=== PATIENT | male | born 1965 | race Two or more races ===

== ENCOUNTER 2023-03-04 04:43 | Emergency (ER) | payer OTHER, SELFPAY ==
--- NOTE | 2023-03-04 | ECG_ITS ---
Test Reason : CP Blood Pressure : / mmHG Vent. Rate : 093 BPM Atrial Rate : 093 BPM P-R Int : 166 ms QRS Dur : 080 ms QT Int : 336 ms P-R-T Axes : 026 013 055 degrees QTc Int : 417 ms Normal sinus rhythm Normal ECG No previous ECGs available Referred By: Generic ED Physician Electronically Signed By:JUANIS PUENTES MD
[2023-03-04 04:53] VITALS: BP 159/89; PULSE 92; RESP 20; TEMP 36.9; O2SAT 98; BMI 28.3
[2023-03-04 04:58] VITALS: BP 132/85; PULSE 92; RESP 12; O2SAT 97
[2023-03-04 05:10] LABS: MANUAL DIFF FLAG NO
[2023-03-04 05:11] LABS: Eosinophils Absolute Auto 0.2 X10*3/uL (0.0-0.4); Eosinophils Percent Auto 5.5 % (0-4); Hematocrit 44.1 % (42.0-52.0); Hemoglobin 15.2 g/dl (14.0-18.0); Imm Gran Abs Auto 0.01 X10*3/uL (0.00-0.03); Imm Gran Pct Auto 0.3 % (0.0-0.4); Lymphocytes Absolute Auto 1.5 X10*3/uL (1.2-4.9); Lymphocytes Percent Auto 37.8 % (20-40); Mean Corpuscular HGB Conc 34.5 g/dl (31.0-36.0); Mean Corpuscular Hemoglobin 28.2 pg (27.0-33.0); Mean Corpuscular Volume 81.8 fL (80.0-98.0); Mean Platelet Volume 9.4 fL (9.4-12.4); Monocytes Absolute Auto 0.4 X10*3/uL (0.1-1.2); Neutrophils Absolute Auto 1.8 x10*3/uL (2.0-8.3); Neutrophils Percent Auto 44.4 % (45-73); Platelet Count 190 X10*3/uL (160-400); Red Blood Count 5.39 X10*6/uL (4.60-5.80); Red Cell Distribution Width 12.4 % (11.0-16.0)
[2023-03-04 05:24] LABS: Alanine Aminotransferase 15 U/L (0-40); Albumin Level 3.9 g/dL (3.5-5.0); Alkaline Phosphatase 76 U/L (39-117); Anion Gap 16 (12-20); Aspartate Amino Transferase 16 U/L (5-37); Bilirubin Total 0.4 mg/dL (0.0-1.0); Blood Urea Nitrogen 10 mg/dL (9-16); Calcium 9.2 mg/dL (8.4-10.2); Carbon Dioxide 22 mmol/L (22-29); Chloride 105 mmol/L (96-108); Creatinine Clr Calc Pharmacy 104.6; Estimated Glomerular Filt Rate > 60; Glucose Random 195 mg/dL (60-115); Sodium 139 mmol/L (135-145); Total Protein 6.6 g/dL (6.5-8.0)
[2023-03-04 05:35] LABS: Troponin-I High Sensitivity < 2.7 ng/L (<3.5-35.0)
--- OUTSIDE RECORDS SUMMARY | 2023-03-04 05:37 | XMS_ITS | Continuity of Care Document ---
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 Role Phone Ruddy Salgado Primary Care Physician Encounter [facility] [place] Date(s): 09/25/19 - 10/02/19 [facility] [address] [place] [address]- [facility] Attending Physician: David Bell MD Referring Physician: Ruddy Salgado Allergies, Adverse Reactions, Alerts Substance Reaction Severity Status NKA Active Immunizations Given and Recorded Vaccine Date Status Refusal Reason influenza virus vaccine, inactivated 02/25/15 Aly rded influenza virus vaccine, inactivated 03/23/14 Give n influenza virus vaccine, inactivated 03/15/12 Give n influenza virus vaccine, inactivated 1 03/15/06 Gi filemon tetanus-diphtheria toxoids (Td) 12/28/12 Given pneumococcal 23-valent vaccine 03/15/12 Given 1Admin Note: med given by ravinder funk rn..vis..11/06/05 Medications Alcohol Pads See Instructions, # 200 each, Refills 5, Tot. Refills 5, Maintenance, use as directed for Type Diabetes Mellitus use as directed for DM 250.02 TID, 10/12/14 9:09:41, Compound Start Date: 10/12/14 Stop Date: 04/10/15 Status: Ordered She[employer]on [employer] Contour Test Strips See Instructions, # 100 each, Refills 11, Tot. Refills 11, Maintenance, TID before meals using withBS monitor., 11/07/14 17:54:38, DM 250.02, Compound Start Date: 11/07/14 Status: Ordered Contour Next EZ Test Strips See Instructions, # 100 each, Refills 5, Tot. Refills 5, Maintenance, use as directed for Type Diabetes Mellitus use as directed for DM 250.02 TID, 10/12/14 9:09:15, Compound Start Date: 10/12/14 Stop Date: 04/10/15 Status: Ordered Cpap suplies: mask, tubing, filters, head gear and water chamber Cpap suplies: mask, tubing, filters, head gear and water chamber, See Instructions, # 1 each, Refills 12, Tot. Refills 12, Maintenance, Use with c-pap machine, 01/10/15 15:35:31, Compound Start Date: 01/10/15 Status: Ordered Eucerin Unscented topical lotion 1 application, Topically, 2 times a day, PRN for dry skin, # 252 mL, 1 Refills, Maintenance, 07/13/14 16:22:35, Lotion, 1 application Topically 2 times a day,PRN:for dry skin Start Date: 07/13/14 Status: Ordered Flonase 50 mcg/inh nasal spray 1 sprays, Nares, Both, 2 times a day, # 1 each, 0 Refills, Maintenance, 12/21/14 10:53:02, [place], 1sprays Nares, Both 2 times a day,x30 days Start Date: 12/21/14 Stop Date: 01/20/15 Status: Ordered folic acid 1 mg oral tablet 1 tablet = 1 mg, By Mouth, Daily, # 30 tablet, 3 Refills, Maintenance, 03/01/15 15:03:00, Tablet, 1tablet By Mouth Daily Start Date: 03/01/15 Status: Ordered Humalog 100 u/ml subcutaneous injection See Instructions, via external pump,on total daily insulin dose 1unit per hour continuosly;up to total 100unit/day with continuos and bolus/ protocol pump., # 20 mL, 11 Refills, Maintenance, 03/01/1515:03:00, Subcutaneous Infusion Diagnosis ICD 10... Start Date: 03/01/15 Status: Ordered Librium Capsule See Instructions, Tapering dose. 75mg TIDx2 days, 50mg TIDx2 days, 50mg bidx2 days, 25mg bid x2 days, 25mg daily x2 days., 0 Refills, Maintenance, 06/05/14 6:40:46 Start Date: 06/05/14 Status: Ordered lithium 300 mg oral tablet See Instructions, 2 caps AM, 3 caps PM, 0 Refills, Maintenance, 03/14/12 10:55:29, Tablet Start Date: 03/14/12 Status: Ordered metformin 1000 mg oral tablet 1 tablet = 1,000 mg, By Mouth, 2 times a day, for 30 days, # 60 tablet, 11 Refills, Hard Stop 02/12/16 13:23:29, 02/17/15 13:23:29, Tablet, 1 tablet By Mouth 2 times a day,x30 days Start Date: 02/17/15 Stop Date: 02/12/16 Status: Ordered montelukast 10 mg oral tablet 1 tablet = 10 mg, By Mouth, Daily in PM, # 30 tablet, 5 Refills, Maintenance, 04/05/15 9:34:00, Tablet, 1 tablet By Mouth Daily in PM Start Date: 04/05/15 Status: Ordered naproxen 500 mg oral tablet 1 tablet = 500 mg, By Mouth, 2 times a day, PRN as needed for pain, # 30 tablet, 2 Refills, Maintenance, 04/16/15 11:01:36, Tablet, 1 tablet By Mouth 2 times a day,PRN:as needed for pain Start Date: 04/16/15 Status: Ordered omeprazole 20 mg oral enteric coated capsule 1 capsule = 20 mg, By Mouth, Daily, can switch to other presentation as generic (tablets), # 30 capsule, 5 Refills, Maintenance, 06/13/15 22:33:00, EC Capsule, 1 capsule By Mouth Daily,Instr:can switch to other presentation as generic (tablets) Start Date: 06/13/15 Status: Ordered oxybutynin 5 mg oral tablet 1 tablet = 5 mg, By Mouth, Daily at bedtime, PRN for urinary discomfort, # 30 tablet, 3 Refills, Maintenance, 04/05/15 9:34:00, Tablet, 1 tablet By Mouth Daily at bedtime,PRN:for urinary discomfort Start Date: 04/05/15 Status: Ordered Pen [place], 31 G x 8 mm BD Ultra Fine III See Instructions, # 100 each, Refills 0, Tot. Refills 0, Maintenance, use as directed for Type 2 Diabetes Mellitus, 06/13/14 16:30:21, Compound Start Date: 06/13/14 Stop Date: 07/13/14 Status: Ordered Pen [place], 31 G x 8 mm BD Ultra Fine III See Instructions, # 100 each, Refills 5, Tot. Refills 5, Maintenance, use as directed for DM 250.02TID, 10/12/14 9:10:01, Compound Start Date: 10/12/14 Stop Date: 04/10/15 Status: Ordered sumatriptan 50 mg oral tablet 1 tablet = 50 mg, By Mouth, Daily, PRN for migraine headache, may repeat dose after 2 hours up to amaximum of 2, # 12 tablet, 1 Refills, Maintenance, 04/16/15 11:07:02, Tablet, 1 tablet By Mouth Daily,PRN:for migraine headache,Instr:may repeat dose a... Start Date: 04/16/15 Status: Ordered Problem List Condition Effective Dates Status Health Status Inform ant Allergic rhinitis(Confirmed) Active Anxiety depression(Confirmed) Active Chronic bipolar disorder(Confirmed) Active Diabetes mellitus type 2(Confirmed) Active Gastro-esophageal reflux dis ease with esophagitis(Confirmed) Active Headache disorder(Confirmed) Active Hepatitis C(Confirmed) 02/06/02 Active Hypercholesterolemia(Confirmed) Active Obstructive sleep apnea syndrome(Confirmed) 2003 Active Opioid abuse(Confirmed)(Stable) 1 Active Truncal obesity(Confirmed) Active 1on methadone clinic Social History Social History Type Response Smoking Status Never smoker; Tobacc o user in household: No entered on: 07/13/14 Sex
--- OUTSIDE RECORDS SUMMARY | 2023-03-04 05:38 | XMS_ITS | Continuity of Care Document ---
Author Name Unknown Organization [facility] Address [address] [place] [address]- Care Team Providers Care Spooler Name Role Phone Mando Zayas DO Primary Care Physician Encounter [facility] Date(s): 11/21/20 - 12/21/[address] [address]- Allergies, Adverse Reactions, Alerts Substance Reaction Severity Status NKA Active Immunizations Given and Recorded Vaccine Date Status Refusal Reason zoster vaccine, inactivated 11/07/20 Recorded SARS-CoV-2 (COVID-19) mRNA BNT-162b2 vac 10/10/20 Recorded SARS-CoV-2 (COVID-19) mRNA BNT-162b2 vac 09/19/20 Recorded influenza virus vaccine, inactivated 02/12/20 Aly rded influenza virus vaccine, inactivated 03/08/17 Aly rded influenza virus vaccine, inactivated 03/23/16 Aly rded influenza virus vaccine, inactivated 02/25/15 Aly rded influenza virus vaccine, inactivated 03/23/14 Give n influenza virus vaccine, inactivated 03/15/12 Give n influenza virus vaccine, inactivated 1 03/15/06 Gi filemon hepatitis B adult vaccine 09/03/15 Recorded hepatitis B adult vaccine 08/03/15 Recorded pneumococcal 23-valent vaccine 08/03/15 Recorded pneumococcal 23-valent vaccine 03/15/12 Given Measles/Mumps/Rubella Virus Vaccine 08/03/15 Recor ded Hepatitis A Adult Vaccine 08/03/15 Recorded tetanus-diphtheria toxoids (Td) 12/28/12 Given 1Admin Note: med given by ravinder funk rn..vis..11/06/05 Medications Alcohol Pads See Instructions, # 200 each, Refills 5, Tot. Refills 5, Maintenance, use as directed for Type 2 Diabetes Mellitus, take your sugars at least once a day, 10/14/20 16:57:00 EDT, Supply, 175.26, cm, 10/14/20 14:50:00 EDT, Height Start Date: 10/14/20 Stop Date: 04/12/21 Status: Ordered atorvastatin 80 mg oral tablet 1 tablet = 80 mg, By Mouth, Daily, # 90 tablet, 3 Refills, Maintenance, 10/14/20 16:00:00 EDT, Tablet, [id number], 175.26, cm, 10/14/20 14:50:00 EDT, Height Start Date: 10/14/20 Status: Ordered cetirizine 5 mg oral tablet = 5 mg, By Mouth, Daily, # 30 tablet, 2 Refills, Maintenance, 03/15/20 17:00:00 EST, Tablet, [id number], 175.26, cm, 03/15/20 13:14:00 EST, Height Start Date: 03/15/20 Status: Ordered cloNIDine 0.1 mg oral tablet 0.1 mg, 1, tablet, By Mouth, 2 times a day, # 60 tablet, Refills 0, Maintenance, 03/15/20 13:32:00 EST Start Date: 03/15/20 Status: Ordered Cpap suplies: mask, tubing, filters, head gear and water chamber Cpap suplies: mask, tubing, filters, head gear and water chamber, See Instructions, # 1 each, Refills 12, Tot. Refills 12, Maintenance, Use with c-pap machine, 01/10/15 15:35:31, Compound Start Date: 01/10/15 Status: Ordered diclofenac 1% topical gel 1 application, Topically, 4 times a day, # 100 Gm, 0 Refills, Maintenance, 10/15/20 17:12:00 EDT, Gel, [id number], 175.26, cm, 10/14/20 14:50:00 EDT, Height Start Date: 10/15/20 Status: Ordered divalproex sodium 500 mg oral enteric coated tablet 1 tablet = 500 mg, By Mouth, 2 times a day, # 60 tablet, 2 Refills, Maintenance, 06/07/20 10:01:00 EST, Tablet, [id number], Partial fill upon patient request if the prescription is for a schedule II opioid drug., 175.26, cm, 03/15/20 13:14:00... Start Date: 06/07/20 Stop Date: 09/05/20 Status: Ordered dulaglutide 1.5 mg/0.5 mL subcutaneous solution 0.5 mL = 1.5 mg, Subcutaneous Injection, Every week, rotate injection sites, # 2 mL, 3 Refills, Maintenance, 11/19/20 17:04:00 EDT, Solution, [facility]/pharmacy #[id number], Partial fill upon patient request if the prescription is for a schedule II opioid drug.,... Start Date: 11/19/20 Status: Ordered famotidine 20 mg oral tablet 20 mg, 1, tablet, By Mouth, 2 times a day, # 180 tablet, Refills 0, Tot. Refills 0, Maintenance, 11/14/20 9:55:00 EDT, Route to Pharmacy Electronically, [facility]/pharmacy #[id number], Partial fill upon patient request if the prescription is for a schedule II opi... Start Date: 11/14/20 Status: Ordered Flonase 50 mcg/inh nasal spray 1 sprays, Nares, Both, 2 times a day, # 1 each, 2 Refills, Maintenance, 03/15/20 17:00:00 EST, [place], [facility]/pharmacy #[id number], 1 sprays Nares, Both 2 times a day,x30 days, 175.26, cm, 03/15/20 13:14:00 EST, Height Start Date: 03/15/20 Stop Date: 06/13/20 Status: Ordered Freestyle Lite Lancets See Instructions, # 300 each, Refills 2, Tot. Refills 2, Maintenance, use as directed for Type 2 Diabetes Mellitus, take your sugars at least once a day, 10/14/20 16:58:00 EDT, Supply, 175.26, cm, 10/14/20 14:50:00 EDT, Height Start Date: 10/14/20 Stop Date: 07/11/21 Status: Ordered Freestyle Lite Monitor See Instructions, # 1 each, Refills 0, Tot. Refills 0, Maintenance, use as directed for Type 2 Diabetes Mellitus, 03/15/20 17:39:00 EST, Supply, 175.26, cm, 03/15/20 13:14:00 EST, Height Start Date: 03/15/20 Stop Date: 04/14/20 Status: Ordered Freestyle Lite Test Strips See Instructions, # 200 each, Refills 2, Tot. Refills 2, Maintenance, use as directed for Type 2 Diabetes Mellitus, take your sugars at least once a day, 10/14/20 16:57:00 EDT, Supply, 175.26, cm, 10/14/20 14:50:00 EDT, Height Start Date: 10/14/20 Stop Date: 01/12/21 Status: Ordered gabapentin 100 mg oral capsule 100 mg, 1, capsule, By Mouth, Daily at bedtime, # 90 capsule, Refills 1, Tot. Refills 1, Maintenance, 11/14/20 9:49:00 EDT, Route to Pharmacy Electronically, [facility]/pharmacy #[id number], Partial fill upon patient request if the prescription is for a schedule I... Start Date: 11/14/20 Status: Ordered lamotrigine 100 mg oral tablet, disintegrating 1 tablet = 100 mg, By Mouth, Daily, # 60 tablet, 0 Refills, Maintenance, 03/15/20 13:31:00 EST, DISTablet Start Date: 03/15/20 Status: Ordered lidocaine 5% topical ointment 1 application, Topically, 3 times a day, wash hands thoroughly after application, # 35 Gm, 0 Refills, Maintenance, 09/30/20 16:55:00 EDT, Ointment, [facility]/pharmacy #[id number], Partial fill upon patient request if the prescription is for a schedule II opioid d... Start Date: 09/30/20 Status: Ordered metFORMIN 1000 mg oral tablet, extended release 1 tablet = 1,000 mg, By Mouth, Daily, with evening meal, # 90 tablet, 3 Refills, Maintenance, 10/14/20 16:00:00 EDT, ER Tablet, [facility]/pharmacy #[id number], Partial fill upon patient request if the prescription is for a schedule II opioid drug., 175.26, cm, 06... Start Date: 10/14/20 Status: Ordered mirtazapine 7.5 mg oral tablet 1 tablet = 7.5 mg, By Mouth, Daily at bedtime, # 60 tablet, 0 Refills, Maintenance, 03/15/20 13:33:00 EST, Tablet Start Date: 03/15/20 Status: Ordered naratriptan 2.5 mg oral tablet 1 tablet = 2.5 mg, By Mouth, Daily, PRN for migraine headache, may repeat dose once in 4 hours, usefor severe headaches at earliest symptom onset, # 9 tablet, 1 Refills, Maintenance, 08/13/20 19:02:00 EDT, Tablet, [facility]/pharmacy #[id number], Partial fill upo... Start Date: 08/13/20 Status: Ordered naratriptan 2.5 mg oral tablet See Instructions, 1 TABLET BY MOUTH DAILY,PRN:FOR MIGRAINE HEADACHE,INSTR:MAY REPEAT DOSE ONCE IN 4HOURS, USE FOR SEVERE HEADACHES AT EARLIEST SYMPTOM ONSET, # 9 tablet, 1 Refills, Acute, [id number], 175.26, cm, 11/14/20 9:30:00 EDT, Height Start Date: 11/14/20 Status: Ordered sildenafil 50 mg oral tablet 1 tablet = 50 mg, By Mouth, Daily, PRN as needed for erectile dysfunction, 1 hour before sexual activity, # 5 tablet, 0 Refills, Maintenance, 10/14/20 16:38:00 EDT, Tablet, [id number], Partial fill upon patient request if the prescriptio... Start Date: 10/14/20 Status: Ordered Tylenol Extra Strength 500 mg oral tablet 2 tablet = 1,000 mg, By Mouth, Every 4 hours, PRN for pain, not to exceed 3000 mg/day okay to take prior to PT, # 120 tablet, 0 Refills, Maintenance, 09/30/20 16:09:00 EDT, Tablet, [facility]/pharmacy #[id number], 175.26, cm, 03/15/20 13:14:00 EST, Height Start Date: 09/30/20 Status: Ordered Problem List Condition Effective Dates [...]
--- OUTSIDE RECORDS SUMMARY | 2023-03-04 05:38 | XMS_ITS | Continuity of Care Document ---
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 Role Phone Mando Zayas DO Primary Care Physician Encounter [facility] [place] ACCT R [id number] Date(s): 06/25/21 - 07/25/[address] [address]- Attending Physician: Admsusanna, Krishna Admitting Physician: Admtr, Ar8 Referring Physician: Admtr, Ar8 Allergies, Adverse Reactions, Alerts No Known Allergies Immunizations Given and Recorded Vaccine Date Status [...] 3 Refills, Maintenance, 10/14/20 16:00:00 EDT, Tablet, [facility]/pharmacy #[id number], 175.26, cm, 10/14/20 14:50:00 EDT, Height Start Date: 10/14/20 Status: Ordered cetirizine 5 mg oral tablet = 5 mg, By Mouth, Daily, # 30 tablet, 2 Refills, Maintenance, 03/15/20 17:00:00 EST, Tablet, [facility]/pharmacy #[id number], 175.26, cm, 03/15/20 13:14:00 EST, Height [...] 0 Refills, Maintenance, 10/15/20 17:12:00 EDT, Gel, [facility]/pharmacy #[id number], 175.26, cm, 10/14/20 14:50:00 EDT, Height Start Date: 10/15/20 Status: Ordered divalproex sodium 500 mg oral enteric coated tablet 1 tablet = 500 mg, By Mouth, 2 times a day, # 60 tablet, 2 Refills, Maintenance, 06/07/20 10:01:00 EST, Tablet, [facility]/pharmacy #[id number], Partial fill upon patient request if the prescription is for a schedule II opioid drug., 175.26, cm, 03/15/20 13:14:00... Start Date: 06/07/20 Stop Date: 09/05/20 Status: Ordered dulaglutide 1.5 mg/0.5 mL subcutaneous solution 0.5 mL = 1.5 mg, Subcutaneous Injection, Every week, rotate injection sites, # 2 mL, 3 Refills, Maintenance, 11/19/20 17:04:00 EDT, Solution, [facility]/pharmacy #[id number], Partial fill upon patient request if the prescription is for a schedule II opioid drug.,... Start Date: 11/19/20 Status: Ordered famotidine 20 mg oral tablet 20 mg, 1, tablet, By Mouth, 2 times a day, # 180 tablet, Refills 0, Tot. Refills 0, Maintenance, 02/04/21 10:59:00 EDT, Route to Pharmacy Electronically, [facility]/pharmacy #[id number], Partial fill upon patientrequest if the prescription is for a schedule II op... Start Date: 02/04/21 Status: Ordered Flonase 50 mcg/inh nasal spray 1 sprays, Nares, Both, 2 times a day, # 1 each, 2 Refills, Maintenance, 03/15/20 17:00:00 EST, [place], [facility]/pharmacy #[id number], 1 sprays Nares, Both 2 times [...] 11/14/20 9:49:00 EDT, Route to Pharmacy Electronically, [facility]/pharmacy #[id number], Partial fill upon patient request if [...] 0 Refills, Maintenance, 09/30/20 16:55:00 EDT, Ointment, [facility]/pharmacy #[id number], Partial fill upon patient request if the prescription is for a schedule II opioid d... Start Date: 09/30/20 Status: Ordered metFORMIN 1000 mg oral tablet, extended release 1 tablet = 1,000 mg, By Mouth, Daily, with evening meal, # 90 tablet, 3 Refills, Maintenance, 10/14/20 16:00:00 EDT, ER Tablet, [id number], Partial fill upon patient [...] 1 Refills, Maintenance, 08/13/20 19:02:00 EDT, Tablet, [facility]/pharmacy #[id number], Partial fill upo... Start Date: 08/13/20 Status: Ordered naratriptan 2.5 mg oral tablet See Instructions, 1 TABLET BY MOUTH DAILY,PRN:FOR MIGRAINE HEADACHE,INSTR:MAY REPEAT DOSE ONCE IN 4HOURS, USE FOR SEVERE HEADACHES AT EARLIEST SYMPTOM ONSET, # 9 tablet, 1 Refills, Acute, [id number], 175.26, cm, 11/14/20 9:30:00 EDT, Height Start [...] 0 Refills, Maintenance, 09/30/20 16:09:00 EDT, Tablet, [facility]/pharmacy #[id number], 175.26, cm, 03/15/20 13:14:00 EST, Height [...]
--- OUTSIDE RECORDS SUMMARY | 2023-03-04 05:38 | XMS_ITS | Continuity of Care Document ---
Author Name Unknown Organization [facility] Address [address] [place] [address]- Care Team Providers Care Story Editor Name Role Phone Mando Zayas DO Primary Care Physician [place] [facility] [place](s): 01/14/21 - 02/13/[address] [address]- Attending Physician: [id number] Admitting Physician: Admtr, Ar8 Referring Physician: Admtr, Ar8 Allergies, Adverse Reactions, Alerts Substance Reaction Severity [...] 3 Refills, Maintenance, 10/14/20 16:00:00 EDT, Tablet, [facility]/pharmacy #[id number], 175.26, cm, 10/14/20 14:50:00 EDT, Height Start Date: 10/14/20 Status: Ordered cetirizine 5 mg oral tablet = 5 mg, By Mouth, Daily, # 30 tablet, 2 Refills, Maintenance, 03/15/20 17:00:00 EST, Tablet, [facility]/pharmacy #[id number], 175.26, cm, 03/15/20 13:14:00 EST, Height [...] 2 Refills, Maintenance, 06/07/20 10:01:00 EST, Tablet, [facility]/pharmacy #[id number], Partial fill upon patient request if the prescription is for a schedule II opioid drug., 175.26, cm, 03/15/20 13:14:00... Start Date: 06/07/20 Stop Date: 09/05/20 Status: Ordered dulaglutide 1.5 mg/0.5 mL subcutaneous solution 0.5 mL = 1.5 mg, Subcutaneous Injection, Every week, rotate injection sites, # 2 mL, 3 Refills, Maintenance, 11/19/20 17:04:00 EDT, Solution, [facility]/pharmacy #[id number], Partial fill upon patient request if the prescription is for a schedule II opioid drug.,... Start Date: 11/19/20 Status: Ordered famotidine 20 mg oral tablet 20 mg, 1, tablet, By Mouth, 2 times a day, # 180 tablet, Refills 0, Tot. Refills 0, Maintenance, 02/04/21 10:59:00 EDT, Route to Pharmacy Electronically, [facility]/pharmacy #[id number], Partial fill upon patientrequest if the prescription is for a schedule II op... Start Date: 02/04/21 Status: Ordered Flonase 50 mcg/inh nasal spray 1 sprays, Nares, Both, 2 times a day, # 1 each, 2 Refills, Maintenance, 03/15/20 17:00:00 EST, [place], [facility]/pharmacy #[id number], 1 sprays Nares, Both 2 times [...] 11/14/20 9:49:00 EDT, Route to Pharmacy Electronically, [facility]/pharmacy #[id number], Partial fill upon patient request if [...] 0 Refills, Maintenance, 09/30/20 16:55:00 EDT, Ointment, [facility]/pharmacy #[id number], Partial fill upon patient request if the prescription is for a schedule II opioid d... Start Date: 09/30/20 Status: Ordered metFORMIN 1000 mg oral tablet, extended release 1 tablet = 1,000 mg, By Mouth, Daily, with evening meal, # 90 tablet, 3 Refills, Maintenance, 10/14/20 16:00:00 EDT, ER Tablet, [facility]/pharmacy [facility][id number], Partial fill upon patient request if [...] 1 Refills, Maintenance, 08/13/20 19:02:00 EDT, Tablet, [facility]/pharmacy #[id number], Partial fill upo... Start Date: 08/13/20 Status: Ordered naratriptan 2.5 mg oral tablet See Instructions, 1 TABLET BY MOUTH DAILY,PRN:FOR MIGRAINE HEADACHE,INSTR:MAY REPEAT DOSE ONCE IN 4HOURS, USE FOR SEVERE HEADACHES AT EARLIEST SYMPTOM ONSET, # 9 tablet, 1 Refills, Acute, [id number], 175.26, cm, 11/14/20 9:30:00 EDT, Height Start [...] 0 Refills, Maintenance, 09/30/20 16:09:00 EDT, Tablet, [facility]/pharmacy #[id number], 175.26, cm, 03/15/20 13:14:00 EST, Height [...]
--- OUTSIDE RECORDS SUMMARY | 2023-03-04 05:38 | XMS_ITS | Continuity of Care Document ---
Author Name Unknown Organization [facility] Address [address] [place] [address]- Care Team Providers Care Neon Sign Installer Name Role Phone Mando Zayas DO Primary Care Physician Encounter [facility] Date(s): 03/12/22 - 04/11/[address] [address]- Allergies, Adverse Reactions, Alerts No Known Allergies Immunizations Given and Recorded Vaccine Date Status Refusal Reason influenza virus vaccine, inactivated 03/31/22 Give n influenza virus vaccine, inactivated 08/21/21 Give n influenza virus vaccine, inactivated 02/12/20 Aly rded influenza virus vaccine, inactivated 03/08/17 Aly rded influenza virus vaccine, inactivated 03/23/16 Aly rded influenza virus vaccine, inactivated 02/25/15 Aly rded influenza virus vaccine, inactivated 03/23/14 Give n influenza virus vaccine, inactivated 03/15/12 Give n influenza virus vaccine, inactivated 1 03/15/06 Gi filemon pneumococcal 20-valent conjugate vaccine 03/31/22 Given zoster vaccine, inactivated 01/15/21 Recorded zoster vaccine, inactivated 11/07/20 Recorded SARS-CoV-2 (COVID-19) mRNA BNT-162b2 vac 10/10/20 Recorded SARS-CoV-2 (COVID-19) mRNA BNT-162b2 vac 09/19/20 Recorded hepatitis B adult vaccine 09/03/15 Recorded hepatitis B adult vaccine 08/03/15 Recorded pneumococcal 23-valent vaccine 08/03/15 Recorded pneumococcal 23-valent vaccine 03/15/12 Given Measles/Mumps/Rubella Virus Vaccine 08/03/15 Recor ded Hepatitis A Adult Vaccine 08/03/15 Recorded tetanus-diphtheria toxoids (Td) 12/28/12 Given 1Admin Note: med given by ravinder funk rn..vis..6/30/06 Medications Alcohol Pads See Instructions, # 200 each, Refills 5, Tot. Refills 5, Maintenance, use as directed for Type 2 Diabetes Mellitus, take your sugars at least once a day, 10/14/20 16:57:00 EDT, Supply, 175.26, cm, 10/14/20 14:50:00 EDT, Height Start Date: 10/14/20 Stop Date: 04/12/21 Status: Ordered Alcohol Wipes See Instructions, # 2 pack/packet, Refills 11, Tot. Refills 11, Maintenance, Please use to clean your finger before you take your blood glucose., 08/04/21 12:51:00 EDT, Supply, 175.26, cm, 08/04/21 11:45:00 EDT, Height Start Date: 08/04/21 Status: Ordered atorvastatin 40 mg oral tablet 1 tablet = 40 mg, By Mouth, Daily, # 30 tablet, 6 Refills, Maintenance, 08/06/21 19:02:00 EDT, Tablet, [facility]/pharmacy #[id number], Partial fill upon patient request if the prescription is for a schedule II opioid drug., 175.26, cm, 08/06/21 13:52:00 EDT, Height Start Date: 08/06/21 Stop Date: 03/04/22 Status: Ordered cetirizine 5 mg oral tablet = 5 mg, By Mouth, Daily, # 30 tablet, 2 Refills, Maintenance, 08/21/21 17:43:00 EDT, Tablet, [facility]/pharmacy #[id number], 175.26, cm, 08/21/21 13:24:00 EDT, Height Start Date: 08/21/21 Status: Ordered cloNIDine 0.1 mg oral tablet [...] 15:35:31, Compound Start Date: 01/10/15 Status: Ordered cyclobenzaprine 10 mg oral tablet 10 mg, 1, tablet, By Mouth, 3 times a day, PRN, # 42 tablet, Refills 0, Tot. Refills 0, Acute 05/09/22 14:00:00 EST, Spasm for spasm, 03/31/22 13:59:00 EST, Route to Pharmacy Electronically, [facility]/pharmacy #[id number], Partial fill upon patient request if t... Start Date: 03/31/22 Stop Date: 05/09/22 Status: Ordered diclofenac 1% topical gel 1 application, Topically, 4 times a day, # 100 Gm, 0 Refills, Maintenance, 10/15/20 17:12:00 EDT, Gel, [facility]/pharmacy #[id number], 175.26, cm, 10/14/20 14:50:00 EDT, Height Start Date: 10/15/20 Status: Ordered dicyclomine 10 mg oral capsule 2 capsule = 20 mg, By Mouth, 4 times a day, PRN abdominal pain, # 112 capsule, 1 Refills, Maintenance, 12/24/21 10:31:00 EDT, Capsule, [facility]/pharmacy #[id number], Partial fill upon patient request if the prescription is for a schedule II opioid drug., 175.26,... Start Date: 12/24/21 Stop Date: 01/21/22 Status: Ordered divalproex sodium 500 mg oral enteric coated tablet 1 tablet = 500 mg, By Mouth, 2 times a day, # 60 tablet, 2 Refills, Maintenance, 06/07/20 10:01:00 EST, Tablet, [facility]/pharmacy #[id number], Partial fill upon patient request if the prescription is for a schedule II opioid drug., 175.26, cm, 03/15/20 13:14:00... Start Date: 06/07/20 Stop Date: 09/05/20 Status: Ordered Flonase 50 mcg/inh nasal spray 1 sprays, Nares, Both, 2 times a day, # 1 each, 2 Refills, Maintenance, 08/21/21 17:43:00 EDT, [place], [facility]/pharmacy #[id number], 1 sprays Nares, Both 2 times a day,x30 days, 175.26, cm, 08/21/21 13:24:00 EDT, Height Start Date: 08/21/21 Stop Date: 11/19/21 Status: Ordered Freestyle Control Solution See Instructions, # 2 each, Refills 2, Tot. Refills 2, Maintenance, Please use with your glucometer., 08/04/21 12:54:00 EDT, Supply, 175.26, cm, 08/04/21 11:45:00 EDT, Height Start Date: 08/04/21 Status: Ordered Freestyle Lite Lancets See Instructions, [...] each, Refills 0, Tot. Refills 0, Maintenance, please use to check your blood glucose levels., 08/04/21 12:53:00 EDT, Supply, 175.26, cm, 08/04/21 11:45:00 EDT, Height Start Date: 08/04/21 Status: Ordered Freestyle Lite Monitor See Instructions, # 1 each, Refills 0, Tot. Refills 0, Maintenance, use as directed for Type 2 Diabetes Mellitus, 03/15/20 17:39:00 EST, Supply, 175.26, cm, 03/15/20 13:14:00 EST, Height Start Date: 03/15/20 Stop Date: 04/14/20 Status: Ordered Freestyle Lite Test Strips See Instructions, # 120 each, Refills 6, Tot. Refills 6, Maintenance, please use with your glucometer., 08/04/21 12:53:00 EDT, Supply, 175.26, cm, 08/04/21 11:45:00 EDT, Height Start Date: 08/04/21 Status: Ordered Freestyle Lite Test Strips See Instructions, # 200 each, Refills 2, Tot. Refills 2, Maintenance, use as directed for Type 2 Diabetes Mellitus, take your sugars at least once a day, 10/14/20 16:57:00 EDT, Supply, 175.26, cm, 10/14/20 14:50:00 EDT, Height Start Date: 10/14/20 Stop Date: 01/12/21 Status: Ordered gabapentin 100 mg oral capsule 1, capsule, By Mouth, Daily at bedtime, # 30 capsule, Refills 5, Maintenance, 03/20/22 10:58:00 EST, Route to Pharmacy Electronically, [id number], 175.26, cm, 12/24/21 9:40:00 EDT, Height Start Date: 03/20/22 Status: Ordered lamotrigine 100 mg oral tablet, disintegrating 1 tablet = 100 mg, By Mouth, Daily, # 60 tablet, 0 Refills, Maintenance, 03/15/20 13:31:00 EST, DISTablet Start Date: 03/15/20 Status: Ordered lidocaine 5% topical ointment 1 application, Topically, 3 times a day, wash hands thoroughly after application, # 35 Gm, 2 Refills, Maintenance, 08/23/21 11:46:00 EDT, Ointment, [facility]/pharmacy #[id number], Partial fill upon patient request if the prescription is for a schedule II opioid d... Start Date: 08/23/21 Status: Ordered MetFORMIN (Eqv-Glucophage XR) 500 mg oral tablet, extended release See Instructions, TAKE 2 TABLETS BY MOUTH EVERY DAY WITH EVENING MEAL, # 180 tablet, 0 Refills, 03/24/22 12:04:00 EST, [id number], 175.26, cm, 12/24/21 9:40:00 EDT, Height Start Date: 03/24/22 Status: Ordered mirtazapine 7.5 mg oral tablet [...] 1 Refills, Maintenance, 08/13/20 19:02:00 EDT, Tablet, [id number], Partial fill upo... Start Date: 08/13/20 Status: Ordered naratriptan 2.5 mg oral tablet See Instructions, 1 TABLET BY MOUTH DAILY,PRN:FOR MIGRAINE HEADACHE,INSTR:MAY REPEAT DOSE ONCE IN 4HOURS, USE FOR SEVERE HEADACHES AT EARLIEST SYMPTOM ONSET, # 9 tablet, 1 Refills, Acute, [id number], 175.26, cm, 11/14/20 9:30:00 EDT, Height Start Date: 11/14/20 Status: Ordered omeprazole 20 mg oral enteric coated capsule 1 capsule = 20 mg, By Mouth, 2 times a day, # 180 capsule, 3 Refills, Maintenance, 03/31/22 13:49:00 EST, EC Capsule, [id number], Partial fill upon patient request if the prescription is for a schedule II opioid drug., 175.26, cm, 03/31/22 13:... Start Date: 03/31/22 Stop Date: 03/26/23 Status: Ordered Pen [place], 29 G x 12.7 mm BD Ultra Fine See Instructions, # 300 each, Refills 5, Tot. Refills 5, Maintenance, use as directed for Type 2 Diabetes Mellitus. Use with your Trulicity pen., 08/04/21 13:11:00 EDT, Supply, 175.26, cm, 08/04/21 11:45:00 EDT, Height Start Date: 08/04/21 Stop Date: 01/26/23 Status: Ordered sildenafil 50 mg oral tablet 1 tablet = 50 mg, By Mouth, Daily, PRN as needed for erectile dysfunction, 1 hour before sexual activity, # 5 tablet, 0 Refills, Maintenance, 10/14/20 16:38:00 EDT, Tablet, [id number], Partial fill upon patient request if the prescriptio... Start Date: 10/14/20 Status: Ordered Trulicity Pen 0.75 mg/0.5 mL subcutaneous solution See Instructions, INJECT 0.5 ML SUBCUTANEOUS INJECTION EVERY WEEKROTATE INJECTION SITES, # 2 Unknown, 3 Refills, 03/12/22 10:30:00 EDT, [id number], 175.26, cm, 12/24/21 9:40:00 EDT, Height Start Date: 03/12/22 Status: Ordered Tylenol Extra Strength 500 mg oral tablet 2 tablet = 1,000 mg, By Mouth, 3 times a day, PRN for pain, not to exceed 3000 mg/day, # 100 tablet, 1 Refills, Maintenance, 08/21/21 17:44:00 EDT, Tablet, [id number], 175.26, cm, 08/21/21 13:24:00 EDT, Height Start Date: 08/21/21 Status: Ordered Problem List Condition Confirmation Course Effective Dates Status Health Status Informant Allergic rhinitis Confirmed Active Anxiety depression Confirmed Active Chronic bipolar disorder Confirmed Active Diabetes mellitus type 2 Confirmed Active Gastro-esophageal reflux disease with esophagitis Confirmed Active Gastroesophageal reflux disease without esophagitis Confirmed 12/28/18 Active Headache disorder Confirmed Active Hepatitis C Confirmed 02/06/02 Active Hypercholesterolemia Confirmed Active Obstructive sleep apnea syndrome Confirmed 2003 Active Opioid abuse 1 Confirmed Stable Active Truncal obesity Confirmed Active Type 2 diabetes mellitus without complication Confirmed 12/28/18 Active 1on methadone clinic Social History Social History Type Response Smoking Status Never smoker; Tobacc o user in household: No entered on: 07/13/14 Sex Patient Care team information Care Team Personnel Name: Thalia Rapp NP Position: [facility] Associate Professional Member Role: Primary Care Nurse Address: Address: [address] [place] [address] [place] [address]- Name: Mando Zayas DO Position: [facility] Resident Member Role: PCP Address: Address: [address] [place] [address]- Care Team Related Persons Name: JESSIE TURNER Address: [address] [place] [address] Name: RUPERT GUILLEN Address: home [address] [place] [address]
--- OUTSIDE RECORDS SUMMARY | 2023-03-04 05:38 | XMS_ITS | Continuity of Care Document ---
Author Name Unknown Organization [facility] Address [address] [place] [address]- Care Team Providers Care Jewelry Dipper Name Role Phone Mando Zayas DO Primary Care Physician [phone] Encounter [facility] Date(s): 11/19/20 - 12/19/[address] [address]- Attending Physician: [id number] Admitting Physician: Admtr, [id number] [...] 3 Refills, Maintenance, 10/14/20 16:00:00 EDT, Tablet, [facility]/pharmacy #[id number], 175.26, cm, 10/14/20 14:50:00 EDT, Height Start Date: 10/14/20 Status: Ordered cetirizine 5 mg oral tablet = 5 mg, By Mouth, Daily, # 30 tablet, 2 Refills, Maintenance, 03/15/20 17:00:00 EST, Tablet, [facility]/pharmacy #[id number], 175.26, cm, 03/15/20 13:14:00 EST, [...] 2 Refills, Maintenance, 06/07/20 10:01:00 EST, Tablet, [facility]/pharmacy #[id number], Partial fill upon patient request if the prescription is for a schedule II opioid drug., 175.26, cm, 03/15/20 13:14:00... Start Date: 06/07/20 Stop Date: 09/05/20 Status: Ordered dulaglutide 1.5 mg/0.5 mL subcutaneous solution 0.5 mL = 1.5 mg, Subcutaneous Injection, Every week, rotate injection sites, # 2 mL, 3 Refills, Maintenance, 11/19/20 17:04:00 EDT, Solution, [facility]/pharmacy #[id number], Partial fill upon patient request if the prescription is for a schedule II opioid drug.,... Start Date: 11/19/20 Status: Ordered famotidine 20 mg oral tablet 20 mg, 1, tablet, By Mouth, 2 times a day, # 180 tablet, Refills 0, Tot. Refills 0, Maintenance, 11/14/20 9:55:00 EDT, Route to Pharmacy Electronically, [facility]/pharmacy #[id number], Partial fill upon patient request if the prescription is for a schedule II opi... Start Date: 11/14/20 Status: Ordered Flonase 50 mcg/inh nasal spray 1 sprays, Nares, Both, 2 times a day, # 1 each, 2 Refills, Maintenance, 03/15/20 17:00:00 EST, [place], [facility]/pharmacy #[id number], 1 sprays Nares, Both 2 [...] 11/14/20 9:49:00 EDT, Route to Pharmacy Electronically, [facility]/pharmacy #[id number], Partial fill upon patient request [...] 0 Refills, Maintenance, 09/30/20 16:55:00 EDT, Ointment, [facility]/pharmacy #[id number], Partial fill upon patient request [...] 1 Refills, Maintenance, 08/13/20 19:02:00 EDT, Tablet, [facility]/pharmacy #[id number], Partial fill upo... Start Date: 08/13/20 Status: Ordered naratriptan 2.5 mg oral tablet See Instructions, 1 TABLET BY MOUTH DAILY,PRN:FOR MIGRAINE HEADACHE,INSTR:MAY REPEAT DOSE ONCE IN 4HOURS, USE FOR SEVERE HEADACHES AT EARLIEST SYMPTOM ONSET, # 9 tablet, 1 Refills, Acute, [id number], 175.26, cm, 11/14/20 9:30:00 EDT, Height Start [...] 0 Refills, Maintenance, 09/30/20 16:09:00 EDT, Tablet, [facility]/pharmacy #[id number], 175.26, cm, 03/15/20 13:14:00 EST, [...]
--- OUTSIDE RECORDS SUMMARY | 2023-03-04 05:38 | XMS_ITS | Continuity of Care Document ---
Author Name Unknown Organization [facility] Address [address] [place] [address]- Care Team Providers Care Laboratory Chemist Name Role Phone Ruddy Salgado Primary Care Physician [facility]counter [facility] Date(s): 09/25/19 - 10/25/19 [facility] [address] [place] [address]- [facility] Attending Physician: Krishna Chaney Admitting Physician: AdmtrKrishna Referring Physician: AdmtrKrishna Allergies, Adverse Reactions, Alerts Substance Reaction Severity Status NKA Active Immunizations Given and Recorded Vaccine Date Status Refusal Reason influenza virus vaccine, inactivated 02/25/15 Aly rded influenza virus vaccine, inactivated 03/23/14 Give n influenza virus vaccine, inactivated 03/15/12 Give n influenza virus vaccine, inactivated 1 03/15/06 Gi filemon tetanus-diphtheria toxoids (Td) 12/28/12 Given pneumococcal 23-valent vaccine 03/15/12 Given 1Admin Note: med given by arvinder funk rn..vis..11/06/05 Medications Alcohol Pads See Instructions, [...] 1 each, 0 Refills, Maintenance, 12/21/14 10:53:02, [place], 1sprays Nares, Both 2 times a day,x30 [...] discomfort Start Date: 04/05/15 Status: Ordered Pen [place], 31 G x 8 mm BD Ultra Fine III See Instructions, # 100 each, Refills 0, Tot. Refills 0, Maintenance, use as directed for Type 2 Diabetes Mellitus, 06/13/14 16:30:21, Compound Start Date: 06/13/14 Stop Date: 07/13/14 Status: Ordered Pen [place], 31 G x 8 mm BD Ultra [...]
--- OUTSIDE RECORDS SUMMARY | 2023-03-04 05:38 | XMS_ITS | Continuity of Care Document ---
Author Name Unknown Organization [facility] Address [address] [place] [address]- Care Team Providers Care [place] Redevelopment Specialist Name Role Phone Mando Zayas DO Primary Care Physician [phone] Encounter [facility] Date(s): 05/07/21 - 05/14/21 [facility] [address] [place], [place] [address] Attending Physician: Buster Carreno MD Referring Physician: Rj Ventura MD Allergies, Adverse Reactions, Alerts Substance Reaction Severity [...] 3 Refills, Maintenance, 10/14/20 16:00:00 EDT, Tablet, [facility]/pharmacy #[id number], 175.26, cm, 10/14/20 14:50:00 EDT, Height Start Date: 10/14/20 Status: Ordered cetirizine 5 mg oral tablet = 5 mg, By Mouth, Daily, # 30 tablet, 2 Refills, Maintenance, 03/15/20 17:00:00 EST, Tablet, [facility]/pharmacy #[id number], 175.26, cm, 03/15/20 13:14:00 EST, [...] 3 Refills, Maintenance, 11/19/20 17:04:00 EDT, Solution, [facility]/pharmacy #[id number], Partial fill upon patient request if the prescription is for a schedule II opioid drug.,... Start Date: 11/19/20 Status: Ordered famotidine 20 mg oral tablet 20 mg, 1, tablet, By Mouth, 2 times a day, # 180 tablet, Refills 0, Tot. Refills 0, Maintenance, 02/04/21 10:59:00 EDT, Route to Pharmacy Electronically, [facility]/pharmacy #[id number], Partial fill upon patientrequest if the prescription is for a schedule II op... Start Date: 02/04/21 Status: Ordered Flonase 50 mcg/inh nasal spray 1 sprays, Nares, Both, 2 times a day, # 1 each, 2 Refills, Maintenance, 03/15/20 17:00:00 EST, [place], [facility]/pharmacy #[id number], 1 sprays Nares, Both 2 [...] 11/14/20 9:49:00 EDT, Route to Pharmacy Electronically, [facility]/pharmacy #[id number], Partial fill upon patient request [...] 0 Refills, Maintenance, 09/30/20 16:55:00 EDT, Ointment, [facility]/pharmacy #[id number], Partial fill upon patient request if the prescription is for a schedule II opioid d... Start Date: 09/30/20 Status: Ordered metFORMIN 1000 mg oral tablet, extended release 1 tablet = 1,000 mg, By Mouth, Daily, with evening meal, # 90 tablet, 3 Refills, Maintenance, 10/14/20 16:00:00 EDT, ER Tablet, [facility]/pharmacy #[id number], Partial fill upon patient request [...] 1 Refills, Maintenance, 08/13/20 19:02:00 EDT, Tablet, [facility]/pharmacy #[id number], Partial fill upo... Start Date: 08/13/20 Status: Ordered naratriptan 2.5 mg oral tablet See Instructions, 1 TABLET BY MOUTH DAILY,PRN:FOR MIGRAINE HEADACHE,INSTR:MAY REPEAT DOSE ONCE IN 4HOURS, USE FOR SEVERE HEADACHES AT EARLIEST SYMPTOM ONSET, # 9 tablet, 1 Refills, Acute, [id number], 175.26, cm, 11/14/20 9:30:00 EDT, Height Start [...] 0 Refills, Maintenance, 09/30/20 16:09:00 EDT, Tablet, [facility]/pharmacy #[id number], 175.26, cm, 03/15/20 13:14:00 EST, [...]
--- OUTSIDE RECORDS SUMMARY | 2023-03-04 05:38 | XMS_ITS | Continuity of Care Document ---
Author Name Unknown Organization [facility] Address [address] [place] [address]- Care Team Providers Care Building And Construction Manager Name Role Phone Mando Zayas DO Primary Care Physician [phone] Encounter [facility] Date(s): 05/22/20 - 06/21/[address] [address]- Allergies, Adverse Reactions, Alerts Substance Reaction Severity [...] directed for Type 2 Diabetes Mellitus, 03/15/20 17:40:00 EST, Supply, 175.26, cm, 03/15/20 13:14:00 EST, Height Start Date: 03/15/20 Stop Date: 09/11/20 Status: Ordered atorvastatin 80 mg oral tablet 1 tablet = 80 mg, By Mouth, Daily, # 90 tablet, 0 Refills, Maintenance, 03/15/20 17:02:00 EST, Tablet, [id number], 175.26, cm, 03/15/20 13:14:00 EST, Height Start Date: 03/15/20 Status: Ordered cetirizine 5 mg oral tablet [...] day, # 100 Gm, 0 Refills, Maintenance, 03/16/20 13:21:00 EST, Gel, [facility]/pharmacy #[id number], 175.26, cm, 03/15/20 13:14:00 EST, Height Start Date: 03/16/20 Status: Ordered divalproex sodium 500 mg oral enteric coated tablet 1 tablet = 500 mg, By Mouth, 2 times a day, # 60 tablet, 2 Refills, Maintenance, 06/07/20 10:01:00 EST, Tablet, [facility]/pharmacy #[id number], Partial fill upon patient request if the prescription is for a schedule II opioid drug., 175.26, cm, 03/15/20 13:14:00... Start Date: 06/07/20 Stop Date: 09/05/20 Status: Ordered Flonase 50 mcg/inh nasal spray 1 sprays, Nares, Both, 2 times a day, # 1 each, 2 Refills, Maintenance, 03/15/20 17:00:00 EST, [place], [id number], 1 sprays Nares, Both 2 times a day,x30 days, 175.26, cm, 03/15/20 13:14:00 EST, Height Start Date: 03/15/20 Stop Date: 06/13/20 Status: Ordered Freestyle Lite Monitor See Instructions, # 1 each, Refills 0, Tot. Refills 0, Maintenance, use as directed for Type 2 Diabetes Mellitus, 03/15/20 17:39:00 EST, Supply, 175.26, cm, 03/15/20 13:14:00 EST, Height Start Date: 03/15/20 Stop Date: 04/14/20 Status: Ordered Freestyle Lite Test Strips See Instructions, # 200 each, Tot. Refills 5, Maintenance, use as directed for Type 2 Diabetes Mellitus, 03/15/20 17:39:00 EST, Supply, 175.26, cm, 03/15/20 13:14:00 EST, Height Start Date: 03/15/20 Stop Date: 04/14/20 Status: Ordered lamotrigine 100 mg oral tablet, disintegrating 1 tablet = 100 mg, By Mouth, Daily, # 60 tablet, 0 Refills, Maintenance, 03/15/20 13:31:00 EST, DISTablet Start Date: 03/15/20 Status: Ordered metFORMIN 750 mg oral tablet, extended release 1 tablet = 750 mg, By Mouth, Daily, # 30 tablet, 5 Refills, Maintenance, 05/23/20 15:53:00 EST, ER Tablet, [id number], 175.26, cm, 03/15/20 13:14:00 EST, Height Start Date: 05/23/20 Status: Ordered mirtazapine 7.5 mg oral tablet [...] onset, # 9 tablet, 1 Refills, Maintenance, 06/07/20 10:03:00 EST, Tablet, [id number], Partial fill upo... Start Date: 06/07/20 Status: Ordered omeprazole 20 mg oral enteric coated capsule 1 capsule = 20 mg, By Mouth, Daily, can switch to other presentation as generic (tablets), # 30 capsule, 5 Refills, Maintenance, 03/15/20 16:59:00 EST, EC Capsule, [id number], 175.26, cm, 03/15/20 13:14:00 EST, Height Start Date: 03/15/20 Status: Ordered Tylenol Extra Strength 500 mg oral tablet 2 tablet = 1,000 mg, By Mouth, Every 4 hours, PRN for pain, not to exceed 3000 mg/day okay to take prior to PT, # 120 tablet, 0 Refills, Maintenance, 03/16/20 13:21:00 EST, Tablet, [facility]/pharmacy #[id number], 175.26, cm, 03/15/20 13:14:00 EST, Height Start Date: 03/16/20 Status: Ordered Problem List Condition Effective Dates [...]
--- OUTSIDE RECORDS SUMMARY | 2023-03-04 05:38 | XMS_ITS | Continuity of Care Document ---
Author Name Unknown Organization [facility] Address [address] [place] [address]- Care Team Providers Care Body Artist Name Role Phone Mando Zayas DO Primary Care Physician Encounter [facility] Date(s): 12/24/21 - 01/23/[address] [address]- Attending Physician: AdmKrishna mullins Admitting Physician: Admtr, [id number] Referring Physician: Admtr, [id number] Allergies, Adverse Reactions, Alerts No Known Allergies Immunizations Given and Recorded Vaccine Date Status Refusal Reason influenza virus vaccine, inactivated 08/21/21 Give n influenza virus vaccine, inactivated 02/12/20 Aly rded influenza virus vaccine, inactivated 03/08/17 Aly rded influenza virus vaccine, inactivated 03/23/16 Aly rded influenza virus vaccine, inactivated 02/25/15 Aly rded influenza virus vaccine, inactivated 03/23/14 Give n influenza virus vaccine, inactivated 03/15/12 Give n influenza virus vaccine, inactivated 1 03/15/06 Gi filemon zoster vaccine, inactivated 01/15/21 Recorded zoster vaccine, [...] 6 Refills, Maintenance, 08/06/21 19:02:00 EDT, Tablet, [facility]/pharmacy #[id number], Partial fill upon patient request if the prescription is for a schedule II opioid drug., 175.26, cm, 08/06/21 13:52:00 EDT, Height Start Date: 08/06/21 Stop Date: 03/04/22 Status: Ordered Carafate 1 gm oral tablet 1 Gm, 1, tablet, By Mouth, 4 times a day, # 120 tablet, Refills 0, Tot. Refills 0, Maintenance, 12/17/21 14:32:00 EDT, Route to Pharmacy Electronically, [facility]/pharmacy #[id number], Partial fill upon patient request if the prescription is for a schedule II opi... Start Date: 12/17/21 Status: Ordered cetirizine 5 mg oral tablet = 5 mg, By Mouth, Daily, # 30 tablet, 2 Refills, Maintenance, 08/21/21 17:43:00 EDT, Tablet, [facility]/pharmacy #[id number], 175.26, cm, 08/21/21 13:24:00 EDT, [...] 1 Refills, Maintenance, 12/24/21 10:31:00 EDT, Capsule, [id number], Partial fill upon patient [...] each, 2 Refills, Maintenance, 08/21/21 17:43:00 EDT, [place], [id number], 1 sprays Nares, Both 2 [...] Date: 10/14/20 Stop Date: 01/12/21 Status: Ordered lamotrigine 100 mg oral tablet, disintegrating 1 tablet = 100 mg, By Mouth, Daily, # 60 tablet, 0 Refills, Maintenance, 03/15/20 13:31:00 EST, DISTablet Start Date: 03/15/20 Status: Ordered lidocaine 5% topical ointment 1 application, Topically, 3 times a day, wash hands thoroughly after application, # 35 Gm, 2 Refills, Maintenance, 08/23/21 11:46:00 EDT, Ointment, [facility]/pharmacy #[id number], Partial fill upon patient request if the prescription is for a schedule II opioid d... Start Date: 08/23/21 Status: Ordered MetFORMIN (Eqv-Glucophage XR) 500 mg oral tablet, extended release See Instructions, TAKE 2 TABLETS BY MOUTH EVERY DAY WITH EVENING MEAL, # 180 tablet, 0 Refills, [id number], 175.26, cm, 08/21/21 13:24:00 EDT, Height Start Date: 11/11/21 Status: Ordered mirtazapine 7.5 mg oral tablet [...] 9 tablet, 1 Refills, Acute, [facility], 175.26, cm, 11/14/20 9:30:00 EDT, Height Start Date: 11/14/20 Status: Ordered omeprazole 20 mg oral enteric coated capsule 1 capsule = 20 mg, By Mouth, Daily, # 90 capsule, 0 Refills, Maintenance, 08/21/21 17:43:00 EDT, ECCapsule, [facility]/pharmacy #[id number], Partial fill upon patient request if the prescription is for a schedule II opioid drug., 175.26, cm, 08/21/21 13:24:00 EDT... Start Date: 08/21/21 Status: Ordered Pen [place], 29 G x 12.7 mm BD Ultra [...] EVERY WEEKROTATE INJECTION SITES, # 2 Unknown, 2 Refills, 12/11/21 12:33:00 EDT, [facility]/pharmacy #[id number], 175.26, cm, 08/21/21 13:24:00 EDT, Height Start Date: 12/11/21 Status: Ordered Tylenol Extra Strength 500 mg oral tablet 2 tablet = 1,000 mg, By Mouth, 3 times a day, PRN for pain, not to exceed 3000 mg/day, # 100 tablet, 1 Refills, Maintenance, 08/21/21 17:44:00 EDT, Tablet, [facility]/pharmacy #[id number], 175.26, cm, 08/21/21 13:24:00 EDT, Height Start Date: 08/21/21 Status: Ordered Problem List Condition Effective Dates Status Health Status Inform ant Allergic rhinitis(Confirmed) Active Anxiety depression(Confirmed) Active Chronic bipolar disorder(Confirmed) Active Diabetes mellitus type 2(Confirmed) Active Gastro-esophageal reflux dis ease with esophagitis(Confirmed) Active Gastroesophageal reflux dise ase without esophagitis(Confirmed) 12/28/18 Active Headache disorder(Confirmed) Active Hepatitis C(Confirmed) 02/06/02 Active Hypercholesterolemia(Confirmed) Active Obstructive sleep apnea syndrome(Confirmed) 2003 Active Opioid abuse(Confirmed)(Stable) 1 Active Truncal obesity(Confirmed) Active Type 2 diabetes mellitus wit hout complication(Confirmed) 12/28/18 Active 1on methadone clinic Social History Social History Type Response Smoking Status Never smoker; Tobacc o user in household: No entered on: 07/13/14 Sex Care Team Personnel Name: Mando Zayas DO Address: [address] [place] [address]
--- OUTSIDE RECORDS SUMMARY | 2023-03-04 05:38 | XMS_ITS | Continuity of Care Document ---
Author Name Unknown Organization [facility] Address [address] [place] [address]- Care Team Providers Care Enamel Sprayer Name Role Phone Mando Zayas DO Primary Care Physician [phone] Encounter [facility] Date(s): 08/01/21 - 08/31/[address] [address] Allergies, Adverse Reactions, Alerts No Known Allergies [...] 6 Refills, Maintenance, 08/06/21 19:02:00 EDT, Tablet, [facility]/pharmacy #[id number], Partial fill upon patient request if the prescription is for a schedule II opioid drug., 175.26, cm, 08/06/21 13:52:00 EDT, Height Start Date: 08/06/21 Stop Date: 03/04/22 Status: Ordered cetirizine 5 mg oral tablet = 5 mg, By Mouth, Daily, # 30 tablet, 2 Refills, Maintenance, 08/21/21 17:43:00 EDT, Tablet, [facility]/pharmacy #[id number], 175.26, cm, 08/21/21 13:24:00 EDT, Height [...] 0 Refills, Maintenance, 10/15/20 17:12:00 EDT, Gel, [facility]/pharmacy #[id number], 175.26, cm, 10/14/20 14:50:00 EDT, Height Start Date: 10/15/20 Status: Ordered divalproex sodium 500 mg oral enteric coated tablet 1 tablet = 500 mg, By Mouth, 2 times a day, # 60 tablet, 2 Refills, Maintenance, 06/07/20 10:01:00 EST, Tablet, [facility]/pharmacy #[id number], Partial fill upon patient request if the prescription is for a schedule II opioid drug., 175.26, cm, 03/15/20 13:14:00... Start Date: 06/07/20 Stop Date: 09/05/20 Status: Ordered dulaglutide 1.5 mg/0.5 mL subcutaneous solution 0.5 mL = 1.5 mg, Subcutaneous Injection, Every week, rotate injection sites, # 2 mL, 3 Refills, Maintenance, 11/19/20 17:04:00 EDT, Solution, [facility]/pharmacy #[id number], Partial fill upon patient request if the prescription is for a schedule II opioid drug.,... Start Date: 11/19/20 Status: Ordered Flonase 50 mcg/inh nasal spray 1 sprays, Nares, Both, 2 times a day, # 1 each, 2 Refills, Maintenance, 08/21/21 17:43:00 EDT, [place], [facility]/pharmacy #[id number], 1 sprays Nares, Both [...] 2 Refills, Maintenance, 08/23/21 11:46:00 EDT, Ointment, [facility]/pharmacy #[id number], Partial fill upon patient request if the prescription is for a schedule II opioid d... Start Date: 08/23/21 Status: Ordered metFORMIN 1000 mg oral tablet, extended release 1 tablet = 1,000 mg, By Mouth, Daily, with evening meal, # 90 tablet, 3 Refills, Maintenance, 10/14/20 16:00:00 EDT, ER Tablet, [facility]/pharmacy #[id number], Partial fill upon patient [...] 1 Refills, Maintenance, 08/13/20 19:02:00 EDT, Tablet, [facility]/pharmacy #[id number], Partial fill upo... Start Date: 08/13/20 Status: Ordered naratriptan 2.5 mg oral tablet See Instructions, 1 TABLET BY MOUTH DAILY,PRN:FOR MIGRAINE HEADACHE,INSTR:MAY REPEAT DOSE ONCE IN 4HOURS, USE FOR SEVERE HEADACHES AT EARLIEST SYMPTOM ONSET, # 9 tablet, 1 Refills, Acute, [facility], 175.26, cm, 11/14/20 9:30:00 EDT, Height Start Date: 11/14/20 Status: Ordered omeprazole 20 mg oral enteric coated capsule 1 capsule = 20 mg, By Mouth, Daily, # 90 capsule, 0 Refills, Maintenance, 08/21/21 17:43:00 EDT, ECCapsule, [facility]/pharmacy #[id number], Partial fill upon patient request if the prescription is for a schedule II opioid drug., 175.26, cm, 08/21/21 13:24:00 EDT... Start Date: 08/21/21 Status: Ordered Pen [place], 29 G x 12.7 mm BD Ultra [...] Trulicity Pen 0.75 mg/0.5 mL subcutaneous solution 0.5 mL = 0.75 mg, Subcutaneous Injection, Every week, rotate injection sites, # 2.5 mL, 1 Refills, Maintenance, 08/04/21 12:49:00 EDT, Solution, [id number], Partial fill upon patient request if the prescription is for a schedule II opioid drug... Start Date: 08/04/21 Stop Date: 10/03/21 Status: Ordered Tylenol Extra Strength 500 mg [...]
--- OUTSIDE RECORDS SUMMARY | 2023-03-04 05:38 | XMS_ITS | Continuity of Care Document ---
Author Name Unknown Organization [facility] Address [address] [place] [address]- Care Team Providers Care Retail Merchandising Specialist Name Role Phone Mando Zayas DO Primary Care Physician [phone] Encounter [facility] Date(s): 01/10/21 - 02/09/[address] [address] Allergies, Adverse Reactions, Alerts Substance Reaction Severity [...] 3 Refills, Maintenance, 11/19/20 17:04:00 EDT, Solution, [facility]/pharmacy #[id number], Partial fill upon patient request if the prescription is for a schedule II opioid drug.,... Start Date: 11/19/20 Status: Ordered famotidine 20 mg oral tablet 20 mg, 1, tablet, By Mouth, 2 times a day, # 180 tablet, Refills 0, Tot. Refills 0, Maintenance, 02/04/21 10:59:00 EDT, Route to Pharmacy Electronically, [facility]/pharmacy #[id number], Partial fill upon patientrequest if the prescription is for a schedule II op... Start Date: 02/04/21 Status: Ordered Flonase 50 mcg/inh nasal spray 1 sprays, Nares, Both, 2 times a day, # 1 each, 2 Refills, Maintenance, 03/15/20 17:00:00 EST, [place], [facility]/pharmacy #[id number], 1 sprays Nares, Both 2 times [...] 11/14/20 9:49:00 EDT, Route to Pharmacy Electronically, [facility]/pharmacy #[id number], Partial fill upon patient request if [...] 0 Refills, Maintenance, 09/30/20 16:55:00 EDT, Ointment, [facility]/pharmacy #[id number], Partial fill upon patient request if the prescription is for a schedule II opioid d... Start Date: 09/30/20 Status: Ordered metFORMIN 1000 mg oral tablet, extended release 1 tablet = 1,000 mg, By Mouth, Daily, with evening meal, # 90 tablet, 3 Refills, Maintenance, 10/14/20 16:00:00 EDT, ER Tablet, [facility]/pharmacy #[id number], Partial fill upon patient request if [...] 1 Refills, Maintenance, 08/13/20 19:02:00 EDT, Tablet, [facility]/pharmacy #[id number], Partial fill upo... Start Date: 08/13/20 Status: Ordered naratriptan 2.5 mg oral tablet See Instructions, 1 TABLET BY MOUTH DAILY,PRN:FOR MIGRAINE HEADACHE,INSTR:MAY REPEAT DOSE ONCE IN 4HOURS, USE FOR SEVERE HEADACHES AT EARLIEST SYMPTOM ONSET, # 9 tablet, 1 Refills, Acute, [facility], 175.26, cm, 11/14/20 9:30:00 EDT, Height Start [...] 0 Refills, Maintenance, 09/30/20 16:09:00 EDT, Tablet, [facility]/pharmacy #[id number], 175.26, cm, 03/15/20 13:14:00 EST, Height [...]
--- OUTSIDE RECORDS SUMMARY | 2023-03-04 05:38 | XMS_ITS | Continuity of Care Document ---
Author Name Unknown Organization [facility] Address [address] [place] [address]- Care Team Providers Care Cellophaner Name Role Phone Mando Zayas DO Primary Care Physician Encounter [facility] [id number] Date(s): 03/31/22 - 04/30/[address] [address]- Attending Physician: Krishna Chaney Admitting Physician: AdmtrKrishna Referring Physician: AdmtrKrishna Allergies, Adverse Reactions, Alerts No Known Allergies [...] 6 Refills, Maintenance, 08/06/21 19:02:00 EDT, Tablet, [facility]/pharmacy #[id number], Partial fill upon patient request if the prescription is for a schedule II opioid drug., 175.26, cm, 08/06/21 13:52:00 EDT, Height Start Date: 08/06/21 Stop Date: 03/04/22 Status: Ordered Carafate 1 gm oral tablet 1 Gm, 1, tablet, By Mouth, 4 times a day, # 120 tablet, Refills 2, Tot. Refills 2, Maintenance, 04/13/22 12:36:00 EST, Route to Pharmacy Electronically, [facility]/pharmacy #[id number], Partial fill upon patient request if the prescription is for a schedule II opi... Start Date: 04/13/22 Status: Ordered cetirizine 5 mg oral tablet = 5 mg, By Mouth, Daily, # 30 tablet, 2 Refills, Maintenance, 08/21/21 17:43:00 EDT, Tablet, [facility]/pharmacy #[id number], 175.26, cm, 08/21/21 13:24:00 EDT, Height [...] 03/31/22 13:59:00 EST, Route to Pharmacy Electronically, [facility]/pharmacy #[id number], Partial fill upon patient request if t... Start Date: 03/31/22 Stop Date: 05/09/22 Status: Ordered diclofenac 1% topical gel 1 application, Topically, 4 times a day, # 100 Gm, 0 Refills, Maintenance, 10/15/20 17:12:00 EDT, Gel, [facility]/pharmacy #[id number], 175.26, cm, 10/14/20 14:50:00 EDT, Height Start Date: 10/15/20 Status: Ordered dicyclomine 10 mg oral capsule 2 capsule = 20 mg, By Mouth, 4 times a day, PRN abdominal pain, # 112 capsule, 1 Refills, Maintenance, 12/24/21 10:31:00 EDT, Capsule, [facility]/pharmacy #[id number], Partial fill upon patient request if the prescription is for a schedule II opioid drug., 175.26,... Start Date: 12/24/21 Stop Date: 01/21/22 Status: Ordered divalproex sodium 500 mg oral enteric coated tablet 1 tablet = 500 mg, By Mouth, 2 times a day, # 60 tablet, 2 Refills, Maintenance, 06/07/20 10:01:00 EST, Tablet, [facility]/pharmacy #[id number], Partial fill upon patient request if the prescription is for a schedule II opioid drug., 175.26, cm, 03/15/20 13:14:00... Start Date: 06/07/20 Stop Date: 09/05/20 Status: Ordered Flonase 50 mcg/inh nasal spray 1 sprays, Nares, Both, 2 times a day, # 1 each, 2 Refills, Maintenance, 08/21/21 17:43:00 EDT, [place], [id number], 1 sprays Nares, Both 2 [...] 03/20/22 10:58:00 EST, Route to Pharmacy Electronically, [facility] 14[facility], 175.26, cm, 12/24/21 9:40:00 EDT, Height Start [...] 2 Refills, Maintenance, 08/23/21 11:46:00 EDT, Ointment, [facility]/pharmacy #[id number], Partial fill upon patient request if the prescription is for a schedule II opioid d... Start Date: 08/23/21 Status: Ordered MetFORMIN (Eqv-Glucophage XR) 500 mg oral tablet, extended release See Instructions, TAKE 2 TABLETS BY MOUTH EVERY DAY WITH EVENING MEAL, # 180 tablet, 0 Refills, 03/24/22 12:04:00 EST, [facility]/pharmacy #[id number], 175.26, cm, 12/24/21 9:40:00 EDT, Height [...] Maintenance, 08/13/20 19:02:00 EDT, Tablet, [facility]/pharmacy #[id number], Partial fill upo... Start Date: 08/13/20 Status: Ordered naratriptan 2.5 mg oral tablet See Instructions, 1 TABLET BY MOUTH DAILY,PRN:FOR MIGRAINE HEADACHE,INSTR:MAY REPEAT DOSE ONCE IN 4HOURS, USE FOR SEVERE HEADACHES AT EARLIEST SYMPTOM ONSET, # 9 tablet, 1 Refills, Acute, [facility], 175.26, cm, 11/14/20 9:30:00 EDT, Height Start [...] 03/31/22 Stop Date: 03/26/23 Status: Ordered Pen [place], 29 G x 12.7 mm BD Ultra [...] 1 Refills, Maintenance, 08/21/21 17:44:00 EDT, Tablet, [facility]/pharmacy #[id number], 175.26, cm, 08/21/21 13:24:00 EDT, Height [...] Team Personnel Name: Thalia Rapp NP Position: [facility] Associate Professional Member Role: Primary Care Nurse Address: Address: [address] [place] [address] Trauma [place] [address]- Name: Mando Zayas DO Position: [facility] Resident Member Role: PCP Address: Address: [address] [place] [address]- Care Team Related Persons Name: JESSIE TURNER Address: home [address] [place] [address] Name: RUPERT GUILLEN Address: home [address] [place] [id number]
--- OUTSIDE RECORDS SUMMARY | 2023-03-04 05:38 | XMS_ITS | Continuity of Care Document ---
Author Name Unknown Organization [facility] Address [address] [place] [address]- Care Team Providers Care Mechanical Shop Laborer Name Role Phone Mando Zayas DO Primary Care Physician [phone] Encounter [facility] Date(s): 04/03/20 - 05/03/[address] [address]- Attending Physician: AdmtrKrishna Admitting Physician: Admtr, Krishna Referring Physician: Admtr, Ar8 Allergies, Adverse Reactions, [...] 2 Refills, Maintenance, 03/15/20 17:00:00 EST, Tablet, [facility]/pharmacy #[id number], 175.26, cm, 03/15/20 13:14:00 EST, Height [...] 0 Refills, Maintenance, 03/16/20 13:21:00 EST, Gel, [facility]/pharmacy #[id number], 175.26, cm, 03/15/20 13:14:00 EST, Height Start Date: 03/16/20 Status: Ordered divalproex sodium 500 mg oral enteric coated tablet 1 tablet = 500 mg, By Mouth, Daily at bedtime, # 90 tablet, 0 Refills, Maintenance, 03/15/20 13:32:00 EST, EC Tablet Start Date: 03/15/20 Status: Ordered Flonase 50 mcg/inh nasal spray 1 sprays, Nares, Both, 2 times a day, # 1 each, 2 Refills, Maintenance, 03/15/20 17:00:00 EST, [place], [facility]/pharmacy #[id number], 1 sprays Nares, Both 2 times [...] mg, By Mouth, Daily, # 30 tablet, 0 Refills, Maintenance, 03/15/20 17:06:00 EST, ER Tablet, [id number], 175.26, cm, 03/15/20 13:14:00 EST, Height Start Date: 03/15/20 Status: Ordered mirtazapine 7.5 mg oral tablet [...] at earliest symptom onset, # 9 tablet, 0 Refills, Maintenance, 03/22/20 10:47:00 EST, Tablet, [id number], Partial fill upo... Start Date: 03/22/20 Status: Ordered omeprazole 20 mg oral enteric [...] 0 Refills, Maintenance, 03/16/20 13:21:00 EST, Tablet, [facility]/pharmacy #[id number], 175.26, cm, 03/15/20 13:14:00 EST, Height [...]
--- OUTSIDE RECORDS SUMMARY | 2023-03-04 05:38 | XMS_ITS | Continuity of Care Document ---
Author Name Unknown Organization [facility] Address [address] [place] [address]- Care Team Providers Care Buffer Automatic Name Role Phone Mando Zayas DO Primary Care Physician Encounter [facility] Date(s): 08/23/21 - 09/22/[address] [address] Allergies, Adverse Reactions, Alerts No Known [...] 6 Refills, Maintenance, 08/06/21 19:02:00 EDT, Tablet, [facility]/pharmacy #[id number], Partial fill upon patient request if the prescription is for a schedule II opioid drug., 175.26, cm, 08/06/21 13:52:00 EDT, Height Start Date: 08/06/21 Stop Date: 03/04/22 Status: Ordered cetirizine 5 mg oral tablet = 5 mg, By Mouth, Daily, # 30 tablet, 2 Refills, Maintenance, 08/21/21 17:43:00 EDT, Tablet, [facility]/pharmacy #[id number], 175.26, cm, 08/21/21 13:24:00 EDT, [...] 0 Refills, Maintenance, 10/15/20 17:12:00 EDT, Gel, [facility]/pharmacy #[id number], 175.26, cm, 10/14/20 14:50:00 EDT, Height Start Date: 10/15/20 Status: Ordered divalproex sodium 500 mg oral enteric coated tablet 1 tablet = 500 mg, By Mouth, 2 times a day, # 60 tablet, 2 Refills, Maintenance, 06/07/20 10:01:00 EST, Tablet, [facility]/pharmacy #[id number], Partial fill upon patient request if the prescription is for a schedule II opioid drug., 175.26, cm, 03/15/20 13:14:00... Start Date: 06/07/20 Stop Date: 09/05/20 Status: Ordered Flonase 50 mcg/inh nasal spray 1 sprays, Nares, Both, 2 times a day, # 1 each, 2 Refills, Maintenance, 08/21/21 17:43:00 EDT, [place], [facility]/pharmacy #[id number], 1 sprays Nares, Both 2 [...] 2 Refills, Maintenance, 08/23/21 11:46:00 EDT, Ointment, [facility]/pharmacy #[id number], Partial fill upon patient request if the prescription is for a schedule II opioid d... Start Date: 08/23/21 Status: Ordered metFORMIN 1000 mg oral tablet, extended release 1 tablet = 1,000 mg, By Mouth, Daily, with evening meal, # 90 tablet, 3 Refills, Maintenance, 10/14/20 16:00:00 EDT, ER Tablet, [facility]/pharmacy #[id number], Partial fill upon patient request [...] 1 Refills, Maintenance, 08/13/20 19:02:00 EDT, Tablet, [facility]/pharmacy #[id number], Partial fill upo... Start Date: 08/13/20 Status: Ordered naratriptan 2.5 mg oral tablet See Instructions, 1 TABLET BY MOUTH DAILY,PRN:FOR MIGRAINE HEADACHE,INSTR:MAY REPEAT DOSE ONCE IN 4HOURS, USE FOR SEVERE HEADACHES AT EARLIEST SYMPTOM ONSET, # 9 tablet, 1 Refills, Acute, [facility]234, 175.26, cm, 11/14/20 9:30:00 EDT, Height Start Date: 11/14/20 Status: Ordered omeprazole 20 mg oral enteric coated capsule 1 capsule = 20 mg, By Mouth, Daily, # 90 capsule, 0 Refills, Maintenance, 08/21/21 17:43:00 EDT, ECCapsule, [facility]/pharmacy #[id number], Partial fill upon patient request if the prescription is for a schedule II opioid drug., 175.26, cm, 08/21/21 13:24:00 EDT... Start Date: 08/21/21 Status: Ordered Pen [place], 29 G x 12.7 mm BD Ultra [...] EVERY WEEKROTATE INJECTION SITES, # 2 Unknown, 1 Refills, [facility], 175.26, cm, 08/21/21 13:24:00 EDT, Height Start Date: 09/08/21 Status: Ordered Tylenol Extra Strength 500 mg oral tablet 2 tablet = 1,000 mg, By Mouth, 3 times a day, PRN for pain, not to exceed 3000 mg/day, # 100 tablet, 1 Refills, Maintenance, 08/21/21 17:44:00 EDT, Tablet, [facility]/pharmacy #4471, 175.26, cm, 08/21/21 13:24:00 EDT, [...]
--- OUTSIDE RECORDS SUMMARY | 2023-03-04 05:38 | XMS_ITS | Continuity of Care Document ---
Author Name Unknown Organization [facility] Address [address] [place] [address]- Care Team Providers Care Powertrain Design Engineer Name Role Phone Mando Zayas DO Primary Care Physician Encounter [facility] [place] Date(s): 05/07/21 - 06/06/21 [facility] [address], [place] [address] Attending Physician: Krishna Chaney Admitting Physician: Admtr, Ar8 Referring Physician: Admtr, [...] Maintenance, 10/14/20 16:00:00 EDT, Tablet, [facility]/pharmacy #[id number], 175.26, cm, 10/14/20 14:50:00 EDT, Height Start Date: 10/14/20 Status: Ordered cetirizine 5 mg oral tablet = 5 mg, By Mouth, Daily, # 30 tablet, 2 Refills, Maintenance, 03/15/20 17:00:00 EST, Tablet, [facility]/pharmacy #[id number], 175.26, cm, 03/15/20 13:14:00 [...] Maintenance, 10/15/20 17:12:00 EDT, Gel, [facility]/pharmacy #[id number], 175.26, cm, 10/14/20 14:50:00 EDT, Height Start Date: 10/15/20 Status: Ordered divalproex sodium 500 mg oral enteric coated tablet 1 tablet = 500 mg, By Mouth, 2 times a day, # 60 tablet, 2 Refills, Maintenance, 06/07/20 10:01:00 EST, Tablet, [facility]/pharmacy #[id number], Partial fill upon patient request if the prescription is for a schedule II opioid drug., 175.26, cm, 03/15/20 13:14:00... Start Date: 06/07/20 Stop Date: 09/05/20 Status: Ordered dulaglutide 1.5 mg/0.5 mL subcutaneous solution 0.5 mL = 1.5 mg, Subcutaneous Injection, Every week, rotate injection sites, # 2 mL, 3 Refills, Maintenance, 11/19/20 17:04:00 EDT, Solution, [facility]/pharmacy #[id number], Partial fill upon patient request if the prescription is for a schedule II opioid drug.,... Start Date: 11/19/20 Status: Ordered famotidine 20 mg oral tablet 20 mg, 1, tablet, By Mouth, 2 times a day, # 180 tablet, Refills 0, Tot. Refills 0, Maintenance, 02/04/21 10:59:00 EDT, Route to Pharmacy Electronically, [facility]/pharmacy #[id number], Partial fill upon patientrequest if the prescription is for a schedule II op... Start Date: 02/04/21 Status: Ordered Flonase 50 mcg/inh nasal spray 1 sprays, Nares, Both, 2 times a day, # 1 each, 2 Refills, Maintenance, 03/15/20 17:00:00 EST, [place], [facility]/pharmacy #[id number], 1 sprays Nares, Both [...] EDT, Route to Pharmacy Electronically, [facility]/pharmacy #[id number], Partial fill upon patient [...] Maintenance, 09/30/20 16:55:00 EDT, Ointment, [facility]/pharmacy #[id number], Partial fill upon patient request if the prescription is for a schedule II opioid d... Start Date: 09/30/20 Status: Ordered metFORMIN 1000 mg oral tablet, extended release 1 tablet = 1,000 mg, By Mouth, Daily, with evening meal, # 90 tablet, 3 Refills, Maintenance, 10/14/20 16:00:00 EDT, ER Tablet, [facility]/pharmacy #[id number], Partial fill upon patient [...] Maintenance, 08/13/20 19:02:00 EDT, Tablet, [facility]/pharmacy #[id number], Partial fill upo... Start Date: 08/13/20 Status: Ordered naratriptan 2.5 mg oral tablet See Instructions, 1 TABLET BY MOUTH DAILY,PRN:FOR MIGRAINE HEADACHE,INSTR:MAY REPEAT DOSE ONCE IN 4HOURS, USE FOR SEVERE HEADACHES AT EARLIEST SYMPTOM ONSET, # 9 tablet, 1 Refills, Acute, [facility] STORE [id number], 175.26, cm, 11/14/20 9:30:00 EDT, Height Start [...] Maintenance, 09/30/20 16:09:00 EDT, Tablet, [facility]/pharmacy #[id number], 175.26, cm, 03/15/20 13:14:00 [...]
--- OUTSIDE RECORDS SUMMARY | 2023-03-04 05:38 | XMS_ITS | Continuity of Care Document ---
Author Name Unknown Organization [facility] Address [address] [place] [id number]- Care Team Providers Care Process Safety Specialist Name Role Phone Mando Zayas DO Primary Care Physician Encounter [facility] [place] Date(s): 07/13/22 - 08/20/[address] [address] Attending Physician: Sherly Ruvalcaba MD Admitting Physician: Sherly Ruvalcaba MD Referring Physician: Sherly Ruvalcaba MD Allergies, Adverse Reactions, Alerts No Known Allergies [...] Ordered atorvastatin 40 mg oral tablet 1 tablet, By Mouth, Daily, # 30 tablet, 6 Refills, Maintenance, 05/20/22 16:29:00 EST, [id number], 174, cm, 05/01/22 7:24:00 EST, Height, 84.7, kg, 05/01/22 7:24:00 EST, Dry Weight Start Date: 05/20/22 Status: Ordered Carafate 1 gm oral tablet 1 Gm, 1, tablet, By Mouth, 4 times a day, # 120 tablet, Refills 2, Tot. Refills 2, Maintenance, 07/06/22 8:16:00 EST, Route to Pharmacy Electronically, [facility]/pharmacy #[id number], Partial fill upon patient request if the prescription is for a schedule II opio... Start Date: 07/06/22 Status: Ordered cetirizine 5 mg oral tablet = 5 mg, By Mouth, Daily, # 30 tablet, 2 Refills, Maintenance, 08/21/21 17:43:00 EDT, Tablet, [facility]/pharmacy #[id number], 175.26, cm, 08/21/21 13:24:00 EDT, Height [...] pain, # 112 capsule, 1 Refills, Maintenance, 06/05/22 10:42:00 EST, Capsule, [id number], Partial fill upon patient request if the prescription is for a schedule II opioid drug., 174, cm... Start Date: 06/05/22 Stop Date: 07/03/22 Status: Ordered divalproex sodium 500 mg oral [...] each, 2 Refills, Maintenance, 08/21/21 17:43:00 EDT, [place], [id number], 1 sprays Nares, Both 2 [...] 03/20/22 10:58:00 EST, Route to Pharmacy Electronically, [id number], 175.26, cm, 12/24/21 9:40:00 EDT, Height Start [...] 2 Refills, Maintenance, 08/23/21 11:46:00 EDT, Ointment, [facility]/pharmacy #[id number], Partial fill upon patient request if the prescription is for a schedule II opioid d... Start Date: 08/23/21 Status: Ordered MetFORMIN (Eqv-Glucophage XR) 500 mg oral tablet, extended release See Instructions, TAKE 2 TABLETS BY MOUTH EVERY DAY WITH EVENING MEAL, # 180 tablet, 3 Refills, 06/05/22 10:48:00 EST, [facility]/pharmacy #[id number], 174, cm, 06/05/22 10:11:00 EST, Height, 84.7, kg, 05/01/22 7:24:00 EST, Dry Weight Start Date: 06/05/22 Status: Ordered mirtazapine 7.5 mg oral tablet [...] Refills, Maintenance, 08/13/20 19:02:00 EDT, Tablet, [facility]/pharmacy #[id number], Partial fill upo... Start Date: 08/13/20 Status: Ordered naratriptan 2.5 mg oral tablet See Instructions, 1 TABLET BY MOUTH DAILY,PRN:FOR MIGRAINE HEADACHE,INSTR:MAY REPEAT DOSE ONCE IN 4HOURS, USE FOR SEVERE HEADACHES AT EARLIEST SYMPTOM ONSET, # 9 tablet, 1 Refills, Acute, [facility], 175.26, cm, 11/14/20 9:30:00 EDT, Height Start Date: 11/14/20 Status: Ordered omeprazole 20 mg oral enteric coated capsule 1 capsule = 20 mg, By Mouth, 2 times a day, # 180 capsule, 3 Refills, Maintenance, 03/31/22 13:49:00 EST, EC Capsule, [facility]/pharmacy #[id number], Partial fill upon patient request if the prescription is for a schedule II opioid drug., 175.26, cm, 03/31/22 13:... Start Date: 03/31/22 Stop Date: 03/26/23 Status: Ordered PEG-3350 with Electrolytes (Eqv-NuLYTELY) oral powder for reconstitution See Instructions, Please follow instructions from GI; NOT the instructions in the package insert., # 1 kit, 0 Refills, Maintenance, 07/28/22 13:00:00 EDT, [facility]/pharmacy #[id number], Okay to substitute with any gallon bowel prep., Please follow instructions f... Start Date: 07/28/22 Status: Ordered Pen [place], 29 G x 12.7 mm BD Ultra [...] INJECTION SITES, # 2 Unknown, 3 Refills, 06/05/22 10:47:00 EST, [id number], 174, cm, 06/05/22 10:11:00 EST, Height, 84.7, kg, 05/01/22 7:24:00 EST, Dry Weight Start Date: 06/05/22 Status: Ordered Tylenol Extra Strength 500 mg oral tablet 2 tablet = 1,000 mg, By Mouth, 3 times a day, PRN for pain, not to exceed 3000 mg/day, # 100 tablet, 1 Refills, Maintenance, 08/21/21 17:44:00 EDT, Tablet, [facility]/pharmacy #[id number], 175.26, cm, 08/21/21 13:24:00 EDT, Height [...] Team Personnel Name: Thalia Rapp NP Position: [facility] Associate Professional Member Role: Primary Care Nurse Address: Address: [address] [place] [address] Trauma [place] [address]- Name: Mando Zayas DO Position: [facility] Resident Member Role: PCP Address: Address: [address] [place] [address]- Care Team Related Persons Name: JESSIE TURNER Address: home [address] [place] [address] Name: RUPERT GUILLEN Address: home [address] [place] [address]
--- OUTSIDE RECORDS SUMMARY | 2023-03-04 05:38 | XMS_ITS | Continuity of Care Document ---
Author Name Unknown Organization [facility] Address [address] [place] [address]- Care Team Providers Care Card Reader Name Role Phone Mando Zayas DO Primary Care Physician Encounter [facility] Date(s): 04/21/22 - 05/21/22 [facility] [address] [place] [address]- Attending Physician: Krishna Chaney Admitting Physician: AdmKrishna mullins Referring Physician: Krishna Chaney Allergies, Adverse Reactions, Alerts No Known Allergies [...] tablet, 6 Refills, Maintenance, 05/20/22 16:29:00 EST, [facility], 174, cm, 05/01/22 7:24:00 EST, Height, 84.7, kg, 05/01/22 7:24:00 EST, Dry Weight Start Date: 05/20/22 Status: Ordered Carafate 1 gm oral tablet 1 Gm, 1, tablet, By Mouth, 4 times a day, # 120 tablet, Refills 2, Tot. Refills 2, Maintenance, 04/13/22 12:36:00 EST, Route to Pharmacy Electronically, [facility]/pharmacy #[id number], Partial fill upon patient request if the prescription is for a schedule II opi... Start Date: 04/13/22 Status: Ordered cetirizine 5 mg oral tablet = 5 mg, By Mouth, Daily, # 30 tablet, 2 Refills, Maintenance, 08/21/21 17:43:00 EDT, Tablet, [facility]/pharmacy #[id number], 175.26, cm, 08/21/21 13:24:00 EDT, Height [...] each, 2 Refills, Maintenance, 08/21/21 17:43:00 EDT, [place], [id number], 1 sprays Nares, Both 2 [...] 03/20/22 10:58:00 EST, Route to Pharmacy Electronically, [facility] [id number], 175.26, cm, 12/24/21 9:40:00 EDT, Height Start [...] 2 Refills, Maintenance, 08/23/21 11:46:00 EDT, Ointment, [facility]/pharmacy #[id number], Partial fill upon patient request if the prescription is for a schedule II opioid d... Start Date: 08/23/21 Status: Ordered MetFORMIN (Eqv-Glucophage XR) 500 mg oral tablet, extended release See Instructions, TAKE 2 TABLETS BY MOUTH EVERY DAY WITH EVENING MEAL, # 180 tablet, 0 Refills, 03/24/22 12:04:00 EST, [facility]/pharmacy #[id number], 175.26, cm, 12/24/21 9:40:00 EDT, Height [...] 1 Refills, Maintenance, 08/13/20 19:02:00 EDT, Tablet, [facility]/pharmacy #[id number], Partial fill upo... Start Date: 08/13/20 Status: Ordered naratriptan 2.5 mg oral tablet See Instructions, 1 TABLET BY MOUTH DAILY,PRN:FOR MIGRAINE HEADACHE,INSTR:MAY REPEAT DOSE ONCE IN 4HOURS, USE FOR SEVERE HEADACHES AT EARLIEST SYMPTOM ONSET, # 9 tablet, 1 Refills, Acute, [facility], 175.26, cm, 11/14/20 9:30:00 EDT, Height Start Date: 11/14/20 Status: Ordered omeprazole 20 mg oral enteric coated capsule 1 capsule = 20 mg, By Mouth, 2 times a day, # 180 capsule, 3 Refills, Maintenance, 03/31/22 13:49:00 EST, EC Capsule, [facility]/pharmacy #[id number], Partial fill upon patient request if the prescription is for a schedule II opioid drug., 175.26, cm, 03/31/22 13:... Start Date: 03/31/22 Stop Date: 03/26/23 Status: Ordered Pen [place], 29 G x 12.7 mm BD Ultra [...] Team Personnel Name: Thalia Rapp NP Position: [facility] Associate Professional Member Role: Primary Care Nurse Address: Address: [address] [place] [address] Trauma and [place] [address]- Name: Mando Zayas DO Position: [facility] Resident Member Role: PCP Address: Address: [address] [place] [address]- Care Team Related Persons Name: JESSIE TURNER Address: home [address] [place] [address] Name: RUPERT GUILLEN Address: home [address] [place] [address]
--- OUTSIDE RECORDS SUMMARY | 2023-03-04 05:38 | XMS_ITS | Continuity of Care Document ---
Author Name Unknown Organization [facility] Address [address] [place] [address]- Care Team Providers Care Research Geologist Name Role Phone Mando Zayas DO Primary Care Physician Encounter [facility] Date(s): 03/12/22 - 04/11/[address] [address]- Allergies, Adverse Reactions, Alerts No Known Allergies [...] 6 Refills, Maintenance, 08/06/21 19:02:00 EDT, Tablet, [facility]/pharmacy #[id number], Partial fill upon patient request if the prescription is for a schedule II opioid drug., 175.26, cm, 08/06/21 13:52:00 EDT, Height Start Date: 08/06/21 Stop Date: 03/04/22 Status: Ordered cetirizine 5 mg oral tablet = 5 mg, By Mouth, Daily, # 30 tablet, 2 Refills, Maintenance, 08/21/21 17:43:00 EDT, Tablet, [facility]/pharmacy #[id number], 175.26, cm, 08/21/21 13:24:00 EDT, Height [...] 03/31/22 13:59:00 EST, Route to Pharmacy Electronically, [facility]/pharmacy #[id number], Partial fill upon patient request if t... Start Date: 03/31/22 Stop Date: 05/09/22 Status: Ordered diclofenac 1% topical gel 1 application, Topically, 4 times a day, # 100 Gm, 0 Refills, Maintenance, 10/15/20 17:12:00 EDT, Gel, [facility]/pharmacy #[id number], 175.26, cm, 10/14/20 14:50:00 EDT, Height Start Date: 10/15/20 Status: Ordered dicyclomine 10 mg oral capsule 2 capsule = 20 mg, By Mouth, 4 times a day, PRN abdominal pain, # 112 capsule, 1 Refills, Maintenance, 12/24/21 10:31:00 EDT, Capsule, [facility]/pharmacy #[id number], Partial fill upon patient request if the prescription is for a schedule II opioid drug., 175.26,... Start Date: 12/24/21 Stop Date: 01/21/22 Status: Ordered divalproex sodium 500 mg oral enteric coated tablet 1 tablet = 500 mg, By Mouth, 2 times a day, # 60 tablet, 2 Refills, Maintenance, 06/07/20 10:01:00 EST, Tablet, [facility]/pharmacy #[id number], Partial fill upon patient request if the prescription is for a schedule II opioid drug., 175.26, cm, 03/15/20 13:14:00... Start Date: 06/07/20 Stop Date: 09/05/20 Status: Ordered Flonase 50 mcg/inh nasal spray 1 sprays, Nares, Both, 2 times a day, # 1 each, 2 Refills, Maintenance, 08/21/21 17:43:00 EDT, [place], [facility]/pharmacy #[id number], 1 sprays Nares, Both 2 times [...] 03/20/22 10:58:00 EST, Route to Pharmacy Electronically, [facility] 26859, 175.26, cm, 12/24/21 9:40:00 EDT, Height Start [...] 2 Refills, Maintenance, 08/23/21 11:46:00 EDT, Ointment, [facility]/pharmacy #[id number], Partial fill upon patient request if the prescription is for a schedule II opioid d... Start Date: 08/23/21 Status: Ordered MetFORMIN (Eqv-Glucophage XR) 500 mg oral tablet, extended release See Instructions, TAKE 2 TABLETS BY MOUTH EVERY DAY WITH EVENING MEAL, # 180 tablet, 0 Refills, 03/24/22 12:04:00 EST, [facility]/pharmacy #[id number], 175.26, cm, 12/24/21 9:40:00 EDT, Height [...] 9 tablet, 1 Refills, Acute, [facility], 175.26, cm, 11/14/20 9:30:00 EDT, Height Start [...] 03/31/22 Stop Date: 03/26/23 Status: Ordered Pen [place], 29 G x 12.7 mm BD Ultra [...] Team Personnel Name: Thalia Rapp NP Position: [facility] Associate Professional Member Role: Primary Care Nurse Address: Address: [address] [place] [address] Trauma [place] [address]- Name: Mando Zayas DO Position: [facility] Resident Member Role: PCP Address: Address: [address] [place] [address]- Care Team Related Persons Name: JESSIE TURNER Address: home [address] [place] [address] Name: RUPERT GUILLEN Address: home [address] [place] [address]
--- OUTSIDE RECORDS SUMMARY | 2023-03-04 05:38 | XMS_ITS | Continuity of Care Document ---
Author Name Unknown [facility] Address [address] [place] [address]- Care Team Providers Care Medical Massage Therapist Name Role Phone Ruddy Salgado Primary Care Physician Unavailab le Encounter [facility] Date(s): 02/13/20 - 03/14/[address] [address]- Attending Physician: Krishna Chaney Admitting Physician: Krishna Chaney Referring Physician: Krishna Chaney Allergies, Adverse Reactions, Alerts Substance Reaction Severity [...] 1 each, 0 Refills, Maintenance, 12/21/14 10:53:02, [place], 1sprays Nares, Both 2 times a day,x30 [...] discomfort Start Date: 04/05/15 Status: Ordered Pen [place], 31 G x 8 mm BD Ultra Fine III See Instructions, # 100 each, Refills 0, Tot. Refills 0, Maintenance, use as directed for Type 2 Diabetes Mellitus, 06/13/14 16:30:21, Compound Start Date: 06/13/14 Stop Date: 07/13/14 Status: Ordered Pen [place], 31 G x 8 mm BD Ultra [...]
--- OUTSIDE RECORDS SUMMARY | 2023-03-04 05:38 | XMS_ITS | Continuity of Care Document ---
Author Name Unknown Organization [facility] Address [address] [place] [address]- Care Team Providers Care Port Engineer Name Role Phone Mando Zayas DO Primary Care Physician Encounter [facility] Date(s): 08/21/21 - 09/20/[address] [address]- Attending Physician: AdmKrishna mullins Admitting Physician: AdmtrKrishna Referring Physician: Admtr, Ar8 Allergies, Adverse Reactions, [...] 6 Refills, Maintenance, 08/06/21 19:02:00 EDT, Tablet, [facility]/pharmacy #[id number], Partial fill upon patient request if the prescription is for a schedule II opioid drug., 175.26, cm, 08/06/21 13:52:00 EDT, Height Start Date: 08/06/21 Stop Date: 03/04/22 Status: Ordered cetirizine 5 mg oral tablet = 5 mg, By Mouth, Daily, # 30 tablet, 2 Refills, Maintenance, 08/21/21 17:43:00 EDT, Tablet, [facility]/pharmacy #[id number], 175.26, cm, 08/21/21 13:24:00 EDT, Height [...] 0 Refills, Maintenance, 10/15/20 17:12:00 EDT, Gel, [facility]/pharmacy #[id number], 175.26, cm, 10/14/20 14:50:00 EDT, Height Start Date: 10/15/20 Status: Ordered divalproex sodium 500 mg oral enteric coated tablet 1 tablet = 500 mg, By Mouth, 2 times a day, # 60 tablet, 2 Refills, Maintenance, 06/07/20 10:01:00 EST, Tablet, [facility]/pharmacy #[id number], Partial fill upon patient request if the prescription is for a schedule II opioid drug., 175.26, cm, 03/15/20 13:14:00... Start Date: 06/07/20 Stop Date: 09/05/20 Status: Ordered Flonase 50 mcg/inh nasal spray 1 sprays, Nares, Both, 2 times a day, # 1 each, 2 Refills, Maintenance, 08/21/21 17:43:00 EDT, [place], [facility]/pharmacy #[id number], 1 sprays Nares, Both 2 times [...] 2 Refills, Maintenance, 08/23/21 11:46:00 EDT, Ointment, [id number], Partial fill upon patient request if the prescription is for a schedule II opioid d... Start Date: 08/23/21 Status: Ordered metFORMIN 1000 mg oral tablet, extended release 1 tablet = 1,000 mg, By Mouth, Daily, with evening meal, # 90 tablet, 3 Refills, Maintenance, 10/14/20 16:00:00 EDT, ER Tablet, [facility]/pharmacy #[id number], Partial fill upon patient request if [...] Refills, Maintenance, 08/13/20 19:02:00 EDT, Tablet, [facility]/pharmacy #[id number], Partial fill upo... Start Date: 08/13/20 Status: Ordered naratriptan 2.5 mg oral tablet See Instructions, 1 TABLET BY MOUTH DAILY,PRN:FOR MIGRAINE HEADACHE,INSTR:MAY REPEAT DOSE ONCE IN 4HOURS, USE FOR SEVERE HEADACHES AT EARLIEST SYMPTOM ONSET, # 9 tablet, 1 Refills, Acute, [facility] [address]105, 175.26, cm, 11/14/20 9:30:00 EDT, Height Start Date: 11/14/20 Status: Ordered omeprazole 20 mg oral enteric coated capsule 1 capsule = 20 mg, By Mouth, Daily, # 90 capsule, 0 Refills, Maintenance, 08/21/21 17:43:00 EDT, ECCapsule, [facility]/pharmacy #[id number], Partial fill upon patient request if the prescription is for a schedule II opioid drug., 175.26, cm, 08/21/21 13:24:00 EDT... Start Date: 08/21/21 Status: Ordered Pen [place], 29 G x 12.7 mm BD Ultra [...] INJECTION SITES, # 2 Unknown, 1 Refills, [facility] 24639, 175.26, cm, 08/21/21 13:24:00 EDT, Height Start Date: 09/08/21 Status: Ordered Tylenol Extra Strength 500 mg oral tablet 2 tablet = 1,000 mg, By Mouth, 3 times a day, PRN for pain, not to exceed 3000 mg/day, # 100 tablet, 1 Refills, Maintenance, 08/21/21 17:44:00 EDT, Tablet, [facility]/pharmacy #[id number], 175.26, cm, 08/21/21 13:24:00 EDT, Height [...]
--- OUTSIDE RECORDS SUMMARY | 2023-03-04 05:38 | XMS_ITS | Continuity of Care Document ---
Author Name Unknown Organization [facility] Address [address] [place] [address]- Care Team Providers Care Latcher Name Role Phone Mando Zayas DO Primary Care Physician Encounter [facility] Date(s): 04/08/22 - 05/08/[address] [address]- Allergies, Adverse Reactions, Alerts No Known Allergies [...] Given 1Admin Note: med given by ravinder fnuk rn..vis..11/06/05 Medications Alcohol Pads See Instructions, # [...] 6 Refills, Maintenance, 08/06/21 19:02:00 EDT, Tablet, [facility]/pharmacy #[id number], Partial fill upon patient request if the prescription is for a schedule II opioid drug., 175.26, cm, 08/06/21 13:52:00 EDT, Height Start Date: 08/06/21 Stop Date: 03/04/22 Status: Ordered Carafate 1 gm oral tablet 1 Gm, 1, tablet, By Mouth, 4 times a day, # 120 tablet, Refills 2, Tot. Refills 2, Maintenance, 04/13/22 12:36:00 EST, Route to Pharmacy Electronically, [facility]/pharmacy #[id number], Partial fill upon patient request if the prescription is for a schedule II opi... Start Date: 04/13/22 Status: Ordered cetirizine 5 mg oral tablet = 5 mg, By Mouth, Daily, # 30 tablet, 2 Refills, Maintenance, 08/21/21 17:43:00 EDT, Tablet, [facility]/pharmacy #[id number], 175.26, cm, 08/21/21 13:24:00 EDT, [...] 03/31/22 13:59:00 EST, Route to Pharmacy Electronically, [facility]/pharmacy #[id number], Partial fill upon patient request if t... Start Date: 03/31/22 Stop Date: 05/09/22 Status: Ordered diclofenac 1% topical gel 1 application, Topically, 4 times a day, # 100 Gm, 0 Refills, Maintenance, 10/15/20 17:12:00 EDT, Gel, [facility]/pharmacy #[id number], 175.26, cm, 10/14/20 14:50:00 EDT, Height Start Date: 10/15/20 Status: Ordered dicyclomine 10 mg oral capsule 2 capsule = 20 mg, By Mouth, 4 times a day, PRN abdominal pain, # 112 capsule, 1 Refills, Maintenance, 12/24/21 10:31:00 EDT, Capsule, [facility]/pharmacy #[id number], Partial fill upon patient request if the prescription is for a schedule II opioid drug., 175.26,... Start Date: 12/24/21 Stop Date: 01/21/22 Status: Ordered divalproex sodium 500 mg oral enteric coated tablet 1 tablet = 500 mg, By Mouth, 2 times a day, # 60 tablet, 2 Refills, Maintenance, 06/07/20 10:01:00 EST, Tablet, [facility]/pharmacy #[id number], Partial fill upon patient request if the prescription is for a schedule II opioid drug., 175.26, cm, 03/15/20 13:14:00... Start Date: 06/07/20 Stop Date: 09/05/20 Status: Ordered Flonase 50 mcg/inh nasal spray 1 sprays, Nares, Both, 2 times a day, # 1 each, 2 Refills, Maintenance, 08/21/21 17:43:00 EDT, [place], [id number], 1 sprays Nares, Both 2 [...] 03/20/22 10:58:00 EST, Route to Pharmacy Electronically, [id number], 175.26, cm, 12/24/21 9:40:00 EDT, Height Start [...] 2 Refills, Maintenance, 08/23/21 11:46:00 EDT, Ointment, [facility]/pharmacy #[id number], Partial fill upon patient request [...] 1 Refills, Maintenance, 08/13/20 19:02:00 EDT, Tablet, [facility]/pharmacy #[id number], Partial fill upo... Start Date: 08/13/20 Status: Ordered naratriptan 2.5 mg oral tablet See Instructions, 1 TABLET BY MOUTH DAILY,PRN:FOR MIGRAINE HEADACHE,INSTR:MAY REPEAT DOSE ONCE IN 4HOURS, USE FOR SEVERE HEADACHES AT EARLIEST SYMPTOM ONSET, # 9 tablet, 1 Refills, Acute, [id number], 175.26, cm, 11/14/20 9:30:00 EDT, Height Start Date: 11/14/20 Status: Ordered omeprazole 20 mg oral enteric coated capsule 1 capsule = 20 mg, By Mouth, 2 times a day, # 180 capsule, 3 Refills, Maintenance, 03/31/22 13:49:00 EST, EC Capsule, [facility]/pharmacy #[id number], Partial fill upon patient request if the prescription is for a schedule II opioid drug., 175.26, cm, 03/31/22 13:... Start Date: 03/31/22 Stop Date: 03/26/23 Status: Ordered Pen [place], 29 G x 12.7 mm BD [...] 2 Unknown, 3 Refills, 03/12/22 10:30:00 EDT, [facility]/pharmacy #[id number], 175.26, cm, 12/24/21 9:40:00 EDT, Height Start Date: 03/12/22 Status: Ordered Tylenol Extra Strength 500 mg oral tablet 2 tablet = 1,000 mg, By Mouth, 3 times a day, PRN for pain, not to exceed 3000 mg/day, # 100 tablet, 1 Refills, Maintenance, 08/21/21 17:44:00 EDT, Tablet, [facility]/pharmacy #[id number], 175.26, cm, 08/21/21 13:24:00 EDT, [...] Team Personnel Name: Thalia Rapp NP Position: [facility] Associate Professional Member Role: Primary Care Nurse Address: Address: [address] [place] [address] Trauma and [place] [address]- Name: Mando Zayas DO Position: [facility] Resident Member Role: PCP Address: Address: [address] [place] [address]- Care Team Related Persons Name: JESSIE TURNER Address: home [address] [place] [address] Name: RUPERT GUILLEN Address: home [address] [place] [address]
--- OUTSIDE RECORDS SUMMARY | 2023-03-04 05:38 | XMS_ITS | Continuity of Care Document ---
Author Name Unknown Organization [facility] Address [address] [place] [address]- Care Team Providers Care Steel Plate Printer Name Role Phone Mando Zayas DO Primary Care Physician Encounter [facility] Date(s): 06/07/20 - 07/07/[address] [address]- Attending Physician: AdmtrKrishna Admitting Physician: Admtr, [id number] Referring Physician: Admtr, [...] 0 Refills, Maintenance, 03/16/20 13:21:00 EST, Gel, [id number], 175.26, cm, 03/15/20 13:14:00 EST, Height Start Date: 03/16/20 Status: Ordered divalproex sodium 500 mg oral enteric coated tablet 1 tablet = 500 mg, By Mouth, 2 times a day, # 60 tablet, 2 Refills, Maintenance, 06/07/20 10:01:00 EST, Tablet, [facility]/pharmacy #[id number], Partial fill upon patient request if the prescription is for a schedule II opioid drug., 175.26, cm, 03/15/20 13:14:00... Start Date: 06/07/20 Stop Date: 09/05/20 Status: Ordered Flonase 50 mcg/inh nasal spray 1 sprays, Nares, Both, 2 times a day, # 1 each, 2 Refills, Maintenance, 03/15/20 17:00:00 EST, [place], [id number], 1 sprays Nares, Both 2 [...] Refills, Maintenance, 05/23/20 15:53:00 EST, ER Tablet, [facility]/pharmacy #[id number], 175.26, cm, 03/15/20 13:14:00 EST, Height [...] 1 Refills, Maintenance, 06/07/20 10:03:00 EST, Tablet, [facility]/pharmacy #[id number], Partial fill upo... Start Date: 06/07/20 Status: Ordered omeprazole 20 mg oral enteric coated capsule 1 capsule = 20 mg, By Mouth, Daily, can switch to other presentation as generic (tablets), # 30 capsule, 5 Refills, Maintenance, 03/15/20 16:59:00 EST, EC Capsule, [facility]/pharmacy #[id number], 175.26, cm, 03/15/20 13:14:00 EST, Height Start Date: 03/15/20 Status: Ordered Tylenol Extra Strength 500 mg oral tablet 2 tablet = 1,000 mg, By Mouth, Every 4 hours, PRN for pain, not to exceed 3000 mg/day okay to take prior to PT, # 120 tablet, 0 Refills, Maintenance, 03/16/20 13:21:00 EST, Tablet, [facility]/pharmacy #[id number], 175.26, cm, 03/15/20 13:14:00 EST, Height [...]
--- OUTSIDE RECORDS SUMMARY | 2023-03-04 05:38 | XMS_ITS | Continuity of Care Document ---
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 Refills 2, Maintenance, 12/29/22 7:48:00 EDT, Route to Pharmacy Electronically, [facility]/pharmacy #[id number], Partial fill upon patient request if the prescription is for a schedule II opio... Start Date: 12/29/22 Status: Ordered cetirizine 5 mg oral tablet = 5 mg, By Mouth, Daily, # 30 tablet, 2 Refills, Maintenance, 08/21/21 17:43:00 EDT, Tablet, [facility]/pharmacy #[id number], 175.26, cm, 08/21/21 13:24:00 EDT, Height [...] 4 times a day, # 100 Gm, 5 Refills, Maintenance, 10/29/22 12:11:00 EDT, Gel, [id number], 175, cm, 08/26/22 10:18:00 EDT, Height, 85.5, kg, 08/26/22 10:18:00 EDT, DryWeight Start Date: 10/29/22 Status: Ordered diclofenac 1% topical gel 1 application, Topically, 4 times a day, # 100 Gm, 0 Refills, Maintenance, 01/02/23 9:10:00 EDT, Gel, [id number], Partial fill upon patient request if the prescription is for a schedule II opioid drug., 175, cm, 01/02/23 9:07:00 EDT, Height, 8... Start Date: 01/02/23 Status: Ordered dicyclomine 10 mg oral capsule [...] each, 2 Refills, Maintenance, 08/21/21 17:43:00 EDT, [place], [id number], 1 sprays Nares, Both 2 [...] Strips See Instructions, # 200 each, Refills 6, Tot. Refills 6, Maintenance, use as directed for Type 2 Diabetes Mellitus, take your sugars at least once a day, 09/11/22 13:40:00 EDT, Supply, 175, cm, 08/26/22 10:18:00 EDT, Height, 85.5, kg, 08/26/22 10:18:0... Start Date: 09/11/22 Stop Date: 04/09/23 Status: Ordered gabapentin 100 mg oral capsule 200 mg, 2, capsule, By Mouth, Daily at bedtime, # 60 capsule, Refills 5, Tot. Refills 5, Maintenance, 01/02/23 9:14:00 EDT, Route to Pharmacy Electronically, [facility]/pharmacy #[id number], 175, cm, 01/02/23 9:07:00 EDT, Height, 85.5, kg, 08/26/22 10:18:00 EDT, D... Start Date: 01/02/23 Stop Date: 07/01/23 Status: Ordered lamotrigine 100 mg oral tablet, disintegrating 1 tablet = 100 mg, By Mouth, Daily, # 60 tablet, 0 Refills, Maintenance, 03/15/20 13:31:00 EST, DISTablet Start Date: 03/15/20 Status: Ordered lidocaine 5% topical ointment 1 application, Topically, 3 times a day, wash hands thoroughly after application, # 35 Gm, 2 Refills, Maintenance, 08/23/21 11:46:00 EDT, Ointment, [facility]/pharmacy #[id number], Partial fill upon patient request if the prescription is for a schedule II opioid d... Start Date: 08/23/21 Status: Ordered MetFORMIN (Eqv-Glucophage XR) 500 mg oral tablet, extended release See Instructions, TAKE 2 TABLETS BY MOUTH EVERY DAY WITH EVENING MEAL, # 180 tablet, 3 Refills, 06/05/22 10:48:00 EST, [facility]/pharmacy #[id number], 174, cm, 06/05/22 10:11:00 EST, Height, [...] 1 Refills, Maintenance, 08/13/20 19:02:00 EDT, Tablet, [facility]/pharmacy #[id number], Partial fill upo... Start Date: 08/13/20 Status: Ordered naratriptan 2.5 mg oral tablet See Instructions, 1 TABLET BY MOUTH DAILY,PRN:FOR MIGRAINE HEADACHE,INSTR:MAY REPEAT DOSE ONCE IN 4HOURS, USE FOR SEVERE HEADACHES AT EARLIEST SYMPTOM ONSET, # 9 tablet, 1 Refills, Acute, [id number], 175.26, cm, 11/14/20 9:30:00 EDT, Height Start Date: 11/14/20 Status: Ordered omeprazole 20 mg oral enteric coated capsule 1 capsule = 20 mg, By Mouth, 2 times a day, # 180 capsule, 3 Refills, Maintenance, 03/31/22 13:49:00 EST, EC Capsule, [facility]/pharmacy #[id number], Partial fill upon patient request if the prescription is for a schedule II opioid drug., 175.26, cm, 03/31/22 13:... Start Date: 03/31/22 Stop Date: 03/26/23 Status: Ordered PEG-3350 with Electrolytes (Eqv-NuLYTELY) oral powder for reconstitution See Instructions, Please follow instructions from GI; NOT the instructions in the package insert., # 1 kit, 0 Refills, Maintenance, 07/28/22 13:00:00 EDT, [id number], Okay to substitute with any gallon bowel prep., Please follow instructions f... Start Date: 07/28/22 Status: Ordered Pen [place], 29 G x 12.7 mm BD Ultra [...] EVERY WEEKROTATE INJECTION SITES, # 2 Unknown, 5 Refills, Maintenance, 10/03/22 6:37:00 EDT, [id number], 175, cm, 08/26/22 10:18:00 EDT, Height, 85.5, kg, 08/26/22 10:18:00 EDT, Dry Weight Start Date: 10/03/22 Status: Ordered Tylenol Extra Strength 500 mg oral tablet 2 tablet = 1,000 mg, By Mouth, 3 times a day, PRN for pain, not to exceed 3000 mg/day, # 100 tablet, 1 Refills, Maintenance, 08/21/21 17:44:00 EDT, Tablet, [id number], 175.26, cm, 08/21/21 13:24:00 EDT, Height Start Date: 08/21/21 Status: Ordered Ultram 50 mg oral tablet 1 tablet = 50 mg, By Mouth, Every 12 hours, PRN for pain, for 30 days, # 60 tablet, 1 Refills, Acute 03/03/23 9:09:00 EDT, 01/02/23 9:09:00 EDT, Tablet, [id number], Partial fill upon patient request if the prescription is for a schedule II opi... Start Date: 01/02/23 Stop Date: 03/03/23 Status: Ordered Problem List Condition Confirmation Course [...] Team Personnel Name: Thalia Rapp NP Position: [facility] Associate Professional Member Role: Primary Care Nurse Address: Address: [address] [place] [address] Trauma and [place] [address]- Name: Mando Zayas DO Position: [facility] Resident Member Role: PCP Address: Address: [address] [place] [address]- Care Team Related Persons Name: JESSIE TURNER Address: home [address] [place] [address] Name: RUPERT GUILLEN Address: home [address] [place] [address]
--- OUTSIDE RECORDS SUMMARY | 2023-03-04 05:38 | XMS_ITS | Continuity of Care Document ---
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 Name Role Phone Mando Zayas DO Primary Care Physician [place] [facility] [place]22 - 08/26/[address] [address] Discharge Disposition: A-D/C Home Attending Physician: Brian Buchanan MD Admitting Physician: Brian Buchanan MD Referring Physician: Brian Buchanan MD Allergies, Adverse Reactions, Alerts No Known [...] tablet, 6 Refills, Maintenance, 05/20/22 16:29:00 EST, [id number], 174, cm, 05/01/22 7:24:00 EST, Height, 84.7, kg, 05/01/22 7:24:00 EST, Dry Weight Start Date: 05/20/22 Status: Ordered Carafate 1 gm oral tablet 1 Gm, 1, tablet, By Mouth, 4 times a day, # 120 tablet, Refills 2, Tot. Refills 2, Maintenance, 07/06/22 8:16:00 EST, Route to Pharmacy Electronically, [facility]/pharmacy #[id number], Partial fill upon patient request if the prescription is for a schedule II opio... Start Date: 07/06/22 Status: Ordered cetirizine 5 mg oral tablet = 5 mg, By Mouth, Daily, # 30 tablet, 2 Refills, Maintenance, 08/21/21 17:43:00 EDT, Tablet, [facility]/pharmacy #[id number], 175.26, cm, 08/21/21 13:24:00 [...] each, 2 Refills, Maintenance, 08/21/21 17:43:00 EDT, [place], [id number], 1 sprays Nares, Both 2 [...] 03/20/22 10:58:00 EST, Route to Pharmacy Electronically, [facility] STORE [id number], 175.26, cm, 12/24/21 9:40:00 EDT, Height Start [...] 2 Refills, Maintenance, 08/23/21 11:46:00 EDT, Ointment, [facility]/pharmacy #[id number], Partial fill upon patient request if the prescription is for a schedule II opioid d... Start Date: 08/23/21 Status: Ordered MetFORMIN (Eqv-Glucophage XR) 500 mg oral tablet, extended release See Instructions, TAKE 2 TABLETS BY MOUTH EVERY DAY WITH EVENING MEAL, # 180 tablet, 3 Refills, 06/05/22 10:48:00 EST, [facility]/pharmacy #[id number], 174, cm, 06/05/22 10:11:00 EST, Height, [...] 1 Refills, Maintenance, 08/13/20 19:02:00 EDT, Tablet, [facility]/pharmacy #[id number], Partial fill upo... Start Date: 08/13/20 Status: Ordered naratriptan 2.5 mg oral tablet See Instructions, 1 TABLET BY MOUTH DAILY,PRN:FOR MIGRAINE HEADACHE,INSTR:MAY REPEAT DOSE ONCE IN 4HOURS, USE FOR SEVERE HEADACHES AT EARLIEST SYMPTOM ONSET, # 9 tablet, 1 Refills, Acute, [facility]ORE [id number], 175.26, cm, 11/14/20 9:30:00 EDT, Height Start Date: 11/14/20 Status: Ordered omeprazole 20 mg oral enteric coated capsule 1 capsule = 20 mg, By Mouth, 2 times a day, # 180 capsule, 3 Refills, Maintenance, 03/31/22 13:49:00 EST, EC Capsule, [facility]/pharmacy #[id number], Partial fill upon patient request if the prescription is for a schedule II opioid drug., 175.26, cm, 03/31/22 13:... Start Date: 03/31/22 Stop Date: 03/26/23 Status: Ordered PEG-3350 with Electrolytes (Eqv-NuLYTELY) oral powder for reconstitution See Instructions, Please follow instructions from GI; NOT the instructions in the package insert., # 1 kit, 0 Refills, Maintenance, 07/28/22 13:00:00 EDT, [facility]/pharmacy #[id number], Okay to substitute with any gallon bowel prep., Please follow instructions f... Start Date: 07/28/22 Status: Ordered Pen [place], 29 G x 12.7 mm BD Ultra [...] 1 Refills, Maintenance, 08/21/21 17:44:00 EDT, Tablet, [facility]/pharmacy #[id number], 175.26, cm, 08/21/21 13:24:00 [...] complication Confirmed 12/28/18 Active 1on methadone clinic Procedures Procedure Date Related Diagnosis Body Site Status Colonoscopy and biopsy of colon 08/26/22 Completed Vital Signs Most recent to oldest [Reference Range]: 1 2 3 Height 175 cm (08/26/22 10:18 AM) Oxygen Saturation [94-100 %] 97 % (08/26/22 12:27 PM) 97 % (08/26/22 12:13 PM) 100 % (08/26/22 10:18 AM) Pulse Rate [55-90 bpm] 74 bpm (08/26/22 12:27 PM) 92 bpm *H* (08/26/22 12:13 PM) 77 bpm (08/26/22 10:18 AM) Blood Pressure [90-138/55-84 mm Hg] 122/84mm Hg (08/26/22 12:27 PM) 108/67mm Hg (08/26/22 12:13 PM) 138/81mm Hg (08/26/22 10:18 AM) Respiratory Rate [16-30 br/min] 19 br/min (08/26/22 12:27 PM) 17 br/min (08/26/22 12:13 PM) 16 br/min (08/26/22 10:18 AM) Temperature [96.8-100.4 DegF] 98 DegF (08/26/22 10:18 AM) Mode of Delivery (Oxygen) Room air (08/26/22 12:27 PM) Room air (08/26/22 12:13 PM) Room air (08/26/22 10:18 AM) Blood pressure sites Arm, left (08/26/22 12:27 PM) Arm, left (08/26/22 12:13 PM) Arm, left (08/26/22 10:18 AM) Temperature Route Temporal (08/26/22 10:18 AM) Dry Weight 85.5 kg (08/26/22 10:18 AM) Dry Weight Obtained Via Patient/family s tated (08/26/22 10:18 AM) Social History Social History Type Response Smoking Status Never smoker; Tobacc o user in household: No entered on: 07/13/14 Sex Note * Cee Weber RN: PERFORM Event Display: Discharge/Transfer Note Hospital Authored Date: [id number] Nursing Discharge Note Entered On: 08/26/2022 12:23 EDT Performed On: 08/26/2022 12:23 EDT by Cee Weber RN Nursing Discharge Note 2 Discharge Time : 08/26/2022 12:47 EDT Cee Weber RN - 08/26/2022 12:48 EDT Discharge Level of Care at Discharge : Home/Snf/Foster Care Patient Left Unit Via : Wheelchair Patient Accompanied Off Unit with : Responsible adult DC Instructions Provided & Signed by Pt : Yes Patient Understands D/C Instructions : Yes Patient Instructions Discharge Signed : Yes Did Pt have Specialty Bed or Wound Vac : No Cee Weber RN - 08/26/2022 12:23 EDT * Cee Weber RN: PERFORM Event Display: Patient Education/Instruction Authored Date: [id number] Inpatient Adult Discharge Instructions [address] [place] [address] Name: FELISHA TURNER : 1965 Visit: 08/26/2022 09:53:00 Current Date: 08/26/2022 12:37 Account: [id number] Inpatient Adult Discharge Instructions We would like to thank you for allowing us to assist you with your healthcare needs. The following includes patient education materials and information regarding your injury/illness. Our entire staffstrives to provide an excellent experience for our patients and their families. PLEASE ENSURE YOU FOLLOW-UP PER THE INSTRUCTIONS BELOW! ?? YOUR OPINION IS IMPORTANT TO US! Please complete the survey you may receive by mail or email. Your feedback will be used to make improvements to the healthcare experiences of our patients and their families. Surveys are administered by [employer]. ?? If further treatment with your primary care physician or another doctor is recommended, it is important for you to keep the appointment. Call your primary care physician or return to the Emergency Department immediately if your condition worsens, fails to improve, or new symptoms develop. If you need to find a doctor, you can call [facility] [employer] for a referral at [phone] or toll free at [phone]) or log in to [email or web address].. ?? You can view and manage your care through the patient portal or by using a health care duong of your choosing. [employer] is a website that allows you to securely view your medical information including your hospital discharge summary, office visit summaries, medications and follow-up visits. You can also request appointments, renew medications, and request access to your medical information using a health care duong of your choosing, or just ask a question. You can enroll at [email or web address] or register during your next office visit. You have been discharged from [facility], Patient Care Unit: ENDO. If you have any questions regarding these instructions after you leave, please call us and we will be happy to assist you. [facility] Your Care Team Attending Physician Dewayne OLIVEIRA, Brian Consulting Providers Michael Sky DO Reason for Your Visit QUESTION OF CECAL WALL THICKENING ON CT SCAN Tests Performed Below is a partial list of the tests performed during your hospitalization. You may have had other tests and procedures not included in this list. Please discuss all test results with your provider. Primary Care Provider Mando Zayas DO Advance Directive . Discharge Vitals Temperature: 98 DegF Height: 175 cm Pulse Rate: 74 bpm ?? Respiratory Rate: 19 br/min ?? Systolic Blood Pressure: 122 mm Hg ?? Diastolic Blood Pressure: 84 mm Hg ?? Oxygen Saturation: 97 % ?? Studies Pending All tests and labs ordered during this hospital stay have been completed unless listed below. Please discuss all pending results with your provider listed above in these instructions. ?? No incomplete studies found What to do next Instructions From Your Doctor Discharge Orders Scheduled Follow-Up Appointments Wednesday 1:00 PM EDT ?? With: Mathew VIVAS, Angeles Hewitt Where: [place] [address]- You Need to Schedule the Following Appointments Follow Up with??follow up with primary care as needed When?? Follow Up with??Mando Zayas When??In 0 days Discharge Medications YUEFELISHA :1965 Visit Date:08/26/2022 Medications: Please continue your medications until treatment is completed or stopped by your provider. Medications not listed below should be discontinued. Discuss any questions related to medications with your provider. What How Much When Why Instructions Next Dose Unchanged Acetaminophen (Tylenol Extra Strength 500 mg oral tablet) 2 tab(s) Oral 3 times a day as needed for for pain not to exceed 3000 mg/ day ?? Unchanged Atorvastatin (atorvastatin 40 mg oral tablet) 1 tab(s) Oral Daily Unchanged Cetirizine (cetirizine 5 mg oral tablet) 5 Milligram Oral Daily Unchanged Clonidine (cloNIDine 0.1 mg oral tablet) 1 tab(s) Oral Twice a day Unchanged Diclofenac Topical (diclofenac 1% topical gel) 1 duong Topically 4 times a day Unchanged Dicyclomine (dicyclomine 10 mg oral capsule) 2 capsule Oral 4 times a day as needed for abdominal pain Duration: 14 Days Unchanged Divalproex Sodium (divalproex sodium 500 mg oral enteric coated tablet) 1 tab(s) Oral Twice a day Migraine headache Duration: 30 Days Unchanged dulaglutide (Trulicity Pen 0.75 mg/ 0.5 mL subcutaneous solution) See instructions INJECT 0.5 ML SUBCUTANEOUS INJECTION EVERY WEEKROTATE INJECTION SITES ?? Unchanged Durable Medical Equipment (Alcohol Pads) See instructions Diabetes mellitus type 2 Duration: 30 Days use as directed for Type 2 Diabetes Mellitus, take your sugars at least once a day ?? Unchanged Durable Medical Equipment (Alcohol Wipes) See instructions Please use to clean your finger before you take your blood glucose. ?? Unchanged Durable Medical Equipment (Freestyle Control Solution) See instructions Please use with your glucometer. ?? Unchanged Durable Medical Equipment (Freestyle Lite Lancets) See instructions Diabetes mellitus type 2 Duration: 90 Days use as directed for Type 2 Diabetes Mellitus, take your sugars at least once a day ?? Unchanged Durable Medical Equipment (Freestyle Lite Monitor) See instructions please use to check your blood glucose levels. ?? Unchanged Durable Medical Equipment (Freestyle Lite Monitor) See instructions Diabetes mellitus Duration: 30 Days use as directed for Type 2 Diabetes Mellitus ?? Unchanged Durable Medical Equipment (Freestyle Lite Test Strips) See instructions Diabetes mellitus type 2 Duration: 30 Days use as directed for Type 2 Diabetes Mellitus, take your sugars at least once a day ?? Unchanged Durable Medical Equipment (Freestyle Lite Test Strips) See instructions please use with your glucometer. ?? Unchanged Durable Medical Equipment (Pen [place], 29 G x 12.7 mm BD Ultra Fine) See instructions Duration: 90 Days use as directed for Type 2 Diabetes Mellitus. Use with your Trulicity pen. ?? Unchanged Fluticasone Nasal (Flonase 50 mcg/ inh nasal spray) 1 spray(s) Nares, Both Twice a day Duration: 30 Days Unchanged Gabapentin (gabapentin 100 mg oral capsule) 1 capsule Oral Daily at Bedtime Unchanged Lamotrigine (lamotrigine 100 mg oral tablet, disintegrating) 1 tab(s) Oral Daily Unchanged Lidocaine Topical (lidocaine 5% topical ointment) 1 duong Topically 3 times a day wash hands thoroughly after application ?? Unchanged Metformin (MetFORMIN (Eqv-Glucophage XR) 500 mg oral tablet, extended release) See instructions TAKE 2 TABLETS BY MOUTH EVERY DAY WITH EVENING MEAL ?? Unchanged Mirtazapine (mirtazapine 7.5 mg oral tablet) 1 tab(s) Oral Daily at Bedtime Unchanged Miscellaneous Rx (Cpap suplies: mask, tubing, filters, head gear and water chamber) See instructions Use with c-pap machine ?? Unchanged Naratriptan (naratriptan 2.5 mg oral tablet) See instructions 1 TABLET BY MOUTH DAILY,PRN:FOR MIGRAINE HEADACHE,INSTR:MAY REPEAT DOSE ONCE IN 4 HOURS, USE FOR SEVERE HEADACHES AT EARLIEST SYMPTOM ONSET ?? Unchanged Naratriptan (naratriptan 2.5 mg oral tablet) 1 tab(s) Oral Daily as needed for for migraine headache Migraine headache may repeat dose once in 4 hours, use for severe headaches at earliest symptom onset ?? Unchanged Omeprazole (omeprazole 20 mg oral enteric coated capsule) 1 capsule Oral Twice a day Duration: 90 Days Unchanged PEG Electrolyte Solution (PEG-3350 with Electrolytes (Eqv-NuLYTELY) oral powder for reconstitution) See instructions Please follow instructions from GI; NOT the instructions in the package insert. ?? Unchanged Sildenafil (sildenafil 50 mg oral tablet) 1 tab(s) Oral Daily as needed for as needed for erectile dysfunction 1 hour before sexual activity ?? Unchanged Sucralfate (Carafate 1 gm oral tablet) 1 tab(s) Oral 4 times a day Test Results Below is a partial list of the most recent Laboratory test results done prior to this discharge. You may have had other tests and procedures not included in this list. Please discuss all test resultswith your provider. Allergies (NKA means No Known Allergies) NKA Problems Active Problems??(13) Allergic rhinitis?? Anxiety depression?? Chronic bipolar disorder?? Diabetes mellitus type 2?? Gastro-esophageal reflux disease with esophagitis?? Gastroesophageal reflux disease without esophagitis?? Headache disorder?? Hepatitis C?? Hypercholesterolemia?? Obstructive sleep apnea syndrome?? Opioid abuse?? Truncal obesity?? Type 2 diabetes mellitus without complication?? Education Materials Below is the list of Educational Leaflet Providered with your Discharge Instructions. Surgery Medical Daystay Surgical Overnight Discharge Instructions?? Hemorrhoids Discharge Instructions?? Valuables and Belongings I fully understand and agree that [facility] accepts no responsibility for all my personal property including clothing, toilet articles, radios, jewelry, dentures, hearing aids, rings, money, or any other property that is in my possession or is brought to me after admission. I understand certain valuables may be placed in a hospital safe for a short period of time. I understand that the hospital is not liable for loss or damage due to accident, fire, or other natural occurrence while said property is in the safe. I accept full responsibility for any personal property that I keep with me, and will not hold the hospital responsible in case of loss or disappearance. I acknowledge that i have been encouraged to send valuables and belongings home. ?? Possessions released to: BELONGINGS WITH PATIENT Date for Pt to Sign Valuables/Belongings: 08/26/22 10:18:00 ?? Valuables & Belongings ?? Clothes Electronic devices Jewelry Monetary Items Personal devices Miscellaneous Medications (Valuables) Valuables at Bedside Jacket, Shirt, Shoes, Undergarments ? Valuables Sent Home ? Valuables Sent to Security ? Other Discharge Information ? Case Management Discharge Plan?? Discharge Plan?? Discharge Level of Care at Discharge: Home/Snf/Foster Care ?? Pulmonary Rehab Status?? Pulmonary Rehab Discharge Status?? Respiratory Rate: 19 br/min ? Common Emergency Awareness Tips IS IT A STROKE? Act FAST and Check for these signs: FACE Does the face look uneven? ARM Does one arm drift down? SPEECH Does their speech sound strange? TIME Call at any sign of stroke ?? Heart Attack Signs Chest discomfort: Most heart attacks involve discomfort in the center of the chest and lasts more than a few minutes, or goes away and comes back. It can feel like uncomfortable pressure, squeezing, fullness or pain. Discomfort in upper body: Symptoms can include pain or discomfort in one or both arms, back, neck, jaw or stomach. Shortness of breath: With or without discomfort. Other signs: Breaking out in a cold sweat, nausea, or lightheaded. Remember, MINUTES DO MATTER. If you experience any of these heart attack warning signs, call to get immediate medical attention! ?? Smoking can increase your chances of developing chronic health problems and can cause harmful effects to other family members in your house. If you smoke, you are strongly encouraged to quit. Please call [employer] at [phone] or [phone] ([phone]) or log in to [email or web address] for referrals to smoking cessation programs. ?? 988 Suicide & Crisis Lifeline is available 30/11 if you or someone you know needs to find a reason to keep living. By calling 128 you'll be connected to a skilled, trained counselor at a crisis center in your area. INPATIENT DISCHARGE INSTRUCTIONS SIGNATURE PAGE FELISHA TURNER Location:[facility] Registration Date and Time:08/26/2022 09:53 EDT Primary Care Physician: Mando Zayas DO, I FELISHA TURNER, have received the above patient education materials/instructions and have verbalized understanding. If ambulance or transport services are being used I further acknowledge being given a choice of service. ?? If you need to contact me, please call me at this number: . 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 295 Medical Daystay/Surgical Overnight Discharge Instructions ? Since your coordination and judgment may be altered by medication and/or anesthesia, a responsible adult must drive you home from the hospital. ? If you have received medication for pain or sedation while under our care, you should not drive, operate machinery, drink alcohol, or sign any legal documents for 24 hours.?? You should have someone with you at home tonight. ? Remain at home the day of discharge.?? You may be up and about unless otherwise instructed by your physician. ? You may resume your daily prescription medication schedule.?? Any depressant medication should be avoided for 24 hours unless otherwise instructed by your surgeon or anesthesiologist. ? Call your physician for a follow-up appointment.? If you experience unusual or severe pain not relied by your pain medication, excessive bleedingor drainage, persistent nausea and vomiting, excessive swelling or redness, foul odor from incisionsite or fever over 100.6F, you need to call your physician. ? A follow-up phone call by a nurse will be made the day after your procedure.?? If you have stayed with us over night, you will not be receiving a follow-up phone call. ? Nausea and vomiting are a common side effect of prescription pain medication.?? We recommend that pills are not taken on an empty stomach.?? While taking any prescription pain medication you should not drive or drink alcohol. ? * Cee Weber RN: PERFORM Event Display: Patient Education Leaflets Authored Date: [id number] Hemorrhoids Discharge Instructions ?? 672 ??Hemorrhoids Discharge Instructions ??You must carefully read the Consumer Information Use and Disclaimer below in order to understand and correctly use this information?? About this topic Hemorrhoids are swollen veins in the rectum. Your rectum is where stool leaves your body. You may be able to see or feel your hemorrhoids outside of your body, but some hemorrhoids are inside of yourrectum and cannot be seen. Hemorrhoids can cause itching, pain, and bleeding. Being constipated or having hard stools can make your hemorrhoids worse.?? What care is needed at home? Ask your doctor what you need to do when you go home. Make sure??you ask questions if you do not understand what the doctor says. This??way you will know what you need to do. ??? Soak your bottomin a few inches of warm water for 10 to 15 minutes??at a time. You can do this 2 to 3 times each day. Do not add soap,??bubble bath, or anything to the water. ??? Use vdkd-dxt-dfsubdc medicines to treat your hemorrhoids. These??include ointments and creams to help with pain and swelling. You can??also use a product like witch vivian to help dry out the skin in the area. ??? To help with constipation: ??? Use stool softeners when needed. ??? Eat high-fiber foods. These include whole grains, fruits, and??vegetables. ??? Drink plenty of water and other fluids each day. This helps to??keep your stools soft. ??? Set a regular schedule to try and have a bowel movement. Do??not ignore the urge to go to the bathroom. Don???t hold it in. ??? Give yourself plenty of time to have a bowel movement, but do not linger on the toilet either, by sitting and reading for a long time. ??? Do mild exercise each day like taking a walk. ??? Avoid heavy lifting or straining while the hemorrhoid is healing. ?? What follow-up care is needed? If your problem does not get better, other care may be needed. Your doctor may ask you to make visits to the office to check on your progress. Be sure to keep these visits.?? What drugs may be needed? The doctor may order drugs to: ??? Help with pain and swelling ??? Ease itching ??? Soften stools ?? Will physical activity be limited? Working out can help with digestion. It might help keep you from having hard stools. Ask your doctor about the best kind of exercise for you. ?? What problems could happen? You may have very bad bleeding. ??? Sometimes, treatments do not work. Some hemorrhoids are very??large. You might need surgery for either of these. ?? When do I need to call the doctor? You have a lot of bleeding from your rectum. ??? Your bowel movement looks like tar. ??? You are not able to pass stool because of pain from your??hemorrhoids. ??? Your pain gets worse and is nothelped by orsw-gmo-eakvguy??medicines, warm water, or your home care. ??? You have a fever of 100.4??F (38??C) or higher. ?? Teach Back: Helping You Understand The Teach Back Method helps you understand the information we are giving you. After you talk with the staff, tell them in your own words what you learned. This helps to make sure the staff has described each thing clearly. It also helps to explain things that may have been confusing. Before going home, make sure you can do these: ??? I can tell you about my condition. ??? I can tell you what may help ease my pain. ??? I can tell you what I will do if I have blood in my rectum. Where can I learn more?[employer]https://familydoctor.or g/condition/hemorrhoids/National Digestive Disease Information Clearinghousehttps://www.niddk.nih.go v/health-information/digestive-diseases/hemorrhoids/definition-factsLast Reviewed Ducg4403-02-90Rxzzsxrf Information Use and Disclaimer:This generalized information is a limited summary of diagnosis,treatment, and/or medication information. It is not meant to be comprehensive and should be used asa tool to help the user understand and/or assess potential diagnostic and treatment options. It does NOT include all information about conditions, treatments, medications, side effects, or risks thatmay apply to a specific patient. It is not intended to be medical advice or a substitute for the medical advice, diagnosis, or treatment of a health care provider based on the health care provider's examination and assessment of a patient???s specific and unique circumstances. Patients must speak with a health care provider for complete information about their health, medical questions, and treatment options, including any risks or benefits regarding use of medications. This information does not endorse any treatments or medications as safe, effective, or approved for treating a specific patient. [employer] and its affiliates disclaim any warranty or liability relating to this information or the use thereof. The use of this information is governed by the Terms of Use, available at??htt ps://[email or web address].[email or web address]-oiqwuzifoemso-hbtqnSnhm Updated 07/02/21? Patient Care team information Care Team Personnel Name: Thalia Rapp NP Position: [facility] Associate Professional Member Role: Primary Care Nurse Address: Address: [address] [place] [address] Trauma [place] [address]- Name: Mando Zayas DO Position: [facility] Resident Member Role: PCP Address: Address: [address] [place] [address]- Care Team Related Persons Name: JESSIE TURNER Address: home [address] [place] [address] Name: RUPERT GUILLEN Address: home [address] [place] [address]
--- OUTSIDE RECORDS SUMMARY | 2023-03-04 05:39 | XMS_ITS | Continuity of Care Document ---
Author Name Unknown Organization [facility] Address [address] [place] [address]- Care Team Providers Care Weed Cooking Operator Name Role Phone Mando Zayas DO Primary Care Physician Encounter [facility] Date(s): 01/08/21 - 02/07/[address] [address]- Allergies, Adverse Reactions, Alerts Substance Reaction Severity [...] 3 Refills, Maintenance, 11/19/20 17:04:00 EDT, Solution, [facility]/pharmacy #[id number], Partial fill upon patient request if the prescription is for a schedule II opioid drug.,... Start Date: 11/19/20 Status: Ordered famotidine 20 mg oral tablet 20 mg, 1, tablet, By Mouth, 2 times a day, # 180 tablet, Refills 0, Tot. Refills 0, Maintenance, 02/04/21 10:59:00 EDT, Route to Pharmacy Electronically, [facility]/pharmacy #[id number], Partial fill upon patientrequest if the prescription is for a schedule II op... Start Date: 02/04/21 Status: Ordered Flonase 50 mcg/inh nasal spray 1 sprays, Nares, Both, 2 times a day, # 1 each, 2 Refills, Maintenance, 03/15/20 17:00:00 EST, [place], [facility]/pharmacy #[id number], 1 sprays Nares, Both [...] 11/14/20 9:49:00 EDT, Route to Pharmacy Electronically, [facility]/pharmacy #[id number], Partial fill upon patient [...] 0 Refills, Maintenance, 09/30/20 16:55:00 EDT, Ointment, [facility]/pharmacy #[id number], Partial fill upon patient request if the prescription is for a schedule II opioid d... Start Date: 09/30/20 Status: Ordered metFORMIN 1000 mg oral tablet, extended release 1 tablet = 1,000 mg, By Mouth, Daily, with evening meal, # 90 tablet, 3 Refills, Maintenance, 10/14/20 16:00:00 EDT, ER Tablet, [facility]/pharmacy #[id number], Partial fill upon patient [...] 1 Refills, Maintenance, 08/13/20 19:02:00 EDT, Tablet, [facility]/pharmacy #[id number], Partial fill upo... Start Date: 08/13/20 Status: Ordered naratriptan 2.5 mg oral tablet See Instructions, 1 TABLET BY MOUTH DAILY,PRN:FOR MIGRAINE HEADACHE,INSTR:MAY REPEAT DOSE ONCE IN 4HOURS, USE FOR SEVERE HEADACHES AT EARLIEST SYMPTOM ONSET, # 9 tablet, 1 Refills, Acute, [facility] STORE [facility]7600, 175.26, cm, 11/14/20 9:30:00 EDT, Height Start [...] 0 Refills, Maintenance, 09/30/20 16:09:00 EDT, Tablet, [facility]/pharmacy #[id number], 175.26, cm, 03/15/20 13:14:00 EST, Height Start Date: 09/30/20 Status: Ordered Problem List Condition Effective Dates Status Health Status Inform ant Allergic rhinitis(Confirmed) Active Anxiety depression(Confirmed) Active Chronic bipolar disorder(Confirmed) Active Diabetes mellitus type 2(Confirmed) Active Gastro-esophageal reflux dis ease with esophagitis(Confirmed) Active Headache disorder(Confirmed) Active Hepatitis C(Confirmed) 02/06/02 Active Hypercholesterolemia(Confirmed) Active Obstructive sleep apnea syndrome(Confirmed) 2004 Active Opioid abuse(Confirmed)(Stable) 1 Active Truncal obesity(Confirmed) Active 1on methadone clinic Social History Social History Type Response Smoking Status Never smoker; Tobacc o user in household: No entered on: 07/13/14 Sex
--- OUTSIDE RECORDS SUMMARY | 2023-03-04 05:39 | XMS_ITS | Continuity of Care Document ---
Author Name Unknown Organization [facility] Address [address] [place] [address]- Care Team Providers Care Immigration Case Worker Name Role Phone Mando Zayas DO Primary Care Physician [place] [facility] - 08/21/[address] [address]- Allergies, Adverse Reactions, Alerts No Known Allergies [...] 6 Refills, Maintenance, 08/06/21 19:02:00 EDT, Tablet, [facility]/pharmacy #[id number], Partial fill upon patient request if the prescription is for a schedule II opioid drug., 175.26, cm, 08/06/21 13:52:00 EDT, Height Start Date: 08/06/21 Stop Date: 03/04/22 Status: Ordered cetirizine 5 mg oral tablet = 5 mg, By Mouth, Daily, # 30 tablet, 2 Refills, Maintenance, 08/21/21 17:43:00 EDT, Tablet, [facility]/pharmacy #[id number], 175.26, cm, 08/21/21 13:24:00 EDT, [...] 0 Refills, Maintenance, 10/15/20 17:12:00 EDT, Gel, [facility]/pharmacy #[id number], 175.26, cm, 10/14/20 14:50:00 EDT, Height Start Date: 10/15/20 Status: Ordered divalproex sodium 500 mg oral enteric coated tablet 1 tablet = 500 mg, By Mouth, 2 times a day, # 60 tablet, 2 Refills, Maintenance, 06/07/20 10:01:00 EST, Tablet, [facility]/pharmacy #[id number], Partial fill upon patient request if the prescription is for a schedule II opioid drug., 175.26, cm, 03/15/20 13:14:00... Start Date: 06/07/20 Stop Date: 09/05/20 Status: Ordered dulaglutide 1.5 mg/0.5 mL subcutaneous solution 0.5 mL = 1.5 mg, Subcutaneous Injection, Every week, rotate injection sites, # 2 mL, 3 Refills, Maintenance, 11/19/20 17:04:00 EDT, Solution, [facility]/pharmacy #[id number], Partial fill upon patient request if the prescription is for a schedule II opioid drug.,... Start Date: 11/19/20 Status: Ordered Flonase 50 mcg/inh nasal spray 1 sprays, Nares, Both, 2 times a day, # 1 each, 2 Refills, Maintenance, 08/21/21 17:43:00 EDT, [place], [facility]/pharmacy #[id number], 1 sprays Nares, Both 2 [...] 0 Refills, Maintenance, 09/30/20 16:55:00 EDT, Ointment, [facility]/pharmacy #[id number], Partial fill upon patient request if the prescription is for a schedule II opioid d... Start Date: 09/30/20 Status: Ordered metFORMIN 1000 mg oral tablet, extended release 1 tablet = 1,000 mg, By Mouth, Daily, with evening meal, # 90 tablet, 3 Refills, Maintenance, 10/14/20 16:00:00 EDT, ER Tablet, [facility]/pharmacy #[id number], Partial fill upon patient request [...] 1 Refills, Maintenance, 08/13/20 19:02:00 EDT, Tablet, [facility]/pharmacy #[id number], Partial fill upo... Start Date: 08/13/20 Status: Ordered naratriptan 2.5 mg oral tablet See Instructions, 1 TABLET BY MOUTH DAILY,PRN:FOR MIGRAINE HEADACHE,INSTR:MAY REPEAT DOSE ONCE IN 4HOURS, USE FOR SEVERE HEADACHES AT EARLIEST SYMPTOM ONSET, # 9 tablet, 1 Refills, Acute, [facility] STORE 04881, 175.26, cm, 11/14/20 9:30:00 EDT, Height Start Date: 11/14/20 Status: Ordered omeprazole 20 mg oral enteric coated capsule 1 capsule = 20 mg, By Mouth, Daily, # 90 capsule, 0 Refills, Maintenance, 08/21/21 17:43:00 EDT, ECCapsule, [facility]/pharmacy #[id number], Partial fill upon patient request if the prescription is for a schedule II opioid drug., 175.26, cm, 08/21/21 13:24:00 EDT... Start Date: 08/21/21 Status: Ordered Pen [place], 29 G x 12.7 mm BD Ultra [...]
--- OUTSIDE RECORDS SUMMARY | 2023-03-04 05:39 | XMS_ITS | Continuity of Care Document ---
Author Name Unknown Organization [facility] Address [address] [place] [address]- Care Team Providers Care Insulation Supervisor Name Role Phone Mando Zayas DO Primary Care Physician Encounter [facility] [place] Date(s): 06/29/22 - 07/29/[address] [address] Attending Physician: Krishna Chaney Admitting Physician: AdmtrKrishna Referring Physician: Admtr, Ar8 [...] tablet, 6 Refills, Maintenance, 05/20/22 16:29:00 EST, [facility] [id number], 174, cm, 05/01/22 7:24:00 EST, Height, 84.7, kg, 05/01/22 7:24:00 EST, Dry Weight Start Date: 05/20/22 Status: Ordered Carafate 1 gm oral tablet 1 Gm, 1, tablet, By Mouth, 4 times a day, # 120 tablet, Refills 2, Tot. Refills 2, Maintenance, 07/06/22 8:16:00 EST, Route to Pharmacy Electronically, [facility]/pharmacy #[id number], Partial fill upon patient request if the prescription is for a schedule II opio... Start Date: 07/06/22 Status: Ordered cetirizine 5 mg oral tablet = 5 mg, By Mouth, Daily, # 30 tablet, 2 Refills, Maintenance, 08/21/21 17:43:00 EDT, Tablet, [facility]/pharmacy #[id number], 175.26, cm, 08/21/21 13:24:00 EDT, Height Start Date: 08/21/21 Status: Ordered cloNIDine 0.1 mg oral tablet 0.1 mg, 1, tablet, By Mouth, 2 times a day, # 60 tablet, Refills 0, Maintenance, 11/06/20 13:32:00 EST Start Date: 03/15/20 Status: Ordered [...] each, 2 Refills, Maintenance, 08/21/21 17:43:00 EDT, [place], [id number], 1 sprays Nares, Both 2 [...] 03/20/22 10:58:00 EST, Route to Pharmacy Electronically, [facility] [id number], 175.26, cm, 12/24/21 9:40:00 EDT, Height Start [...] 2 Refills, Maintenance, 08/23/21 11:46:00 EDT, Ointment, [facility]/pharmacy #[id number], Partial fill upon patient request if the prescription is for a schedule II opioid d... Start Date: 08/23/21 Status: Ordered MetFORMIN (Eqv-Glucophage XR) 500 mg oral tablet, extended release See Instructions, TAKE 2 TABLETS BY MOUTH EVERY DAY WITH EVENING MEAL, # 180 tablet, 3 Refills, 06/05/22 10:48:00 EST, [id number], 174, cm, 06/05/22 10:11:00 [...] 1 Refills, Maintenance, 08/13/20 19:02:00 EDT, Tablet, [facility]/pharmacy #[id number], Partial fill upo... Start Date: 08/13/20 Status: Ordered naratriptan 2.5 mg oral tablet See Instructions, 1 TABLET BY MOUTH DAILY,PRN:FOR MIGRAINE HEADACHE,INSTR:MAY REPEAT DOSE ONCE IN 4HOURS, USE FOR SEVERE HEADACHES AT EARLIEST SYMPTOM ONSET, # 9 tablet, 1 Refills, Acute, [facility], 175.26, cm, 11/14/20 9:30:00 EDT, Height Start [...] f... Start Date: 07/28/22 Status: Ordered Pen [place], 29 G x 12.7 mm BD Ultra [...] 2 Unknown, 3 Refills, 06/05/22 10:47:00 EST, [facility]/pharmacy #[id number], 174, cm, 06/05/22 10:11:00 EST, Height, 84.7, kg, 05/01/22 7:24:00 EST, Dry Weight Start Date: 06/05/22 Status: Ordered Tylenol Extra Strength 500 mg oral tablet 2 tablet = 1,000 mg, By Mouth, 3 times a day, PRN for pain, not to exceed 3000 mg/day, # 100 tablet, 1 Refills, Maintenance, 08/21/21 17:44:00 EDT, Tablet, [facility]/pharmacy #[id number], 175.26, cm, 08/21/21 13:24:00 EDT, Height [...] Team Personnel Name: Thalia Rapp NP Position: [facility] Associate Professional Member Role: Primary Care Nurse Address: Address: [address] [place] [address] Trauma and [place] [address]- Name: Mando Zayas DO Position: [facility] Resident Member Role: PCP Address: Address: [address] [place] [address]- Care Team Related Persons Name: JESSIE TURNER Address: home [address] [place] [address] Name: RUPERT GUILLEN Address: home [address] [place] [address]
--- OUTSIDE RECORDS SUMMARY | 2023-03-04 05:39 | XMS_ITS | Continuity of Care Document ---
Author Name Unknown Organization [facility] Address [address] [place] [address]- Care Team Providers Care Buckle Sorter Name Role Phone Mando Zayas DO Primary Care Physician [place] [facility] [place](s[place] 09/01/22 - 10/01/[address] [address] Attending Physician: Krishna Chaney Admitting Physician: AdmtrKrishna [...] tablet, 6 Refills, Maintenance, 05/20/22 16:29:00 EST, [facility] ST[facility] 22585, 174, cm, 05/01/22 7:24:00 EST, Height, 84.7, kg, 05/01/22 7:24:00 EST, Dry Weight Start Date: 05/20/22 Status: Ordered Carafate 1 gm oral tablet 1 Gm, 1, tablet, By Mouth, 4 times a day, # 120 tablet, Refills 2, Tot. Refills 2, Maintenance, 09/30/22 12:19:00 EDT, Route to Pharmacy Electronically, [facility]/pharmacy #[id number], Partial fill upon patient request if the prescription is for a schedule II opi... Start Date: 09/30/22 Status: Ordered cetirizine 5 mg oral tablet = 5 mg, By Mouth, Daily, # 30 tablet, 2 Refills, Maintenance, 08/21/21 17:43:00 EDT, Tablet, [facility]/pharmacy #[id number], 175.26, cm, 08/21/21 13:24:00 EDT, Height [...] each, 2 Refills, Maintenance, 08/21/21 17:43:00 EDT, [place], [id number], 1 sprays Nares, Both 2 [...] 03/20/22 10:58:00 EST, Route to Pharmacy Electronically, [facility] STORE 66818, 175.26, cm, 12/24/21 9:40:00 EDT, Height Start [...] 2 Refills, Maintenance, 08/23/21 11:46:00 EDT, Ointment, [facility]/pharmacy #[id number], Partial fill upon patient request if the prescription is for a schedule II opioid d... Start Date: 08/23/21 Status: Ordered MetFORMIN (Eqv-Glucophage XR) 500 mg oral tablet, extended release See Instructions, TAKE 2 TABLETS BY MOUTH EVERY DAY WITH EVENING MEAL, # 180 tablet, 3 Refills, 06/05/22 10:48:00 EST, [facility]/pharmacy #[id number], 174, cm, 06/05/22 10:11:00 EST, Height, [...] Maintenance, 08/13/20 19:02:00 EDT, Tablet, [facility]/pharmacy #[id number], Partial fill upo... Start Date: 08/13/20 Status: Ordered naratriptan 2.5 mg oral tablet See Instructions, 1 TABLET BY MOUTH DAILY,PRN:FOR MIGRAINE HEADACHE,INSTR:MAY REPEAT DOSE ONCE IN 4HOURS, USE FOR SEVERE HEADACHES AT EARLIEST SYMPTOM ONSET, # 9 tablet, 1 Refills, Acute, [facility] ST[facility] 53183, 175.26, cm, 11/14/20 9:30:00 EDT, Height Start Date: 11/14/20 Status: Ordered omeprazole 20 mg oral enteric coated capsule 1 capsule = 20 mg, By Mouth, 2 times a day, # 180 capsule, 3 Refills, Maintenance, 03/31/22 13:49:00 EST, EC Capsule, [facility]/pharmacy #[id number], Partial fill upon patient request if the prescription is for a schedule II opioid drug., 175.26, cm, 03/31/22 13:... Start Date: 03/31/22 Stop Date: 03/26/23 Status: Ordered PEG-3350 with Electrolytes (Eqv-NuLYTELY) oral powder for reconstitution See Instructions, Please follow instructions from GI; NOT the instructions in the package insert., # 1 kit, 0 Refills, Maintenance, 07/28/22 13:00:00 EDT, [facility]/pharmacy #[id number], Okay to substitute with any gallon bowel prep., Please follow instructions f... Start Date: 07/28/22 Status: Ordered Pen [place], 29 G x 12.7 mm BD Ultra [...] Team Personnel Name: Thalia Rapp NP Position: [facility] Associate Professional Member Role: Primary Care Nurse Address: Address: [address] [place] [address] Trauma and Acute [place] [address]- Name: Mando Zayas DO Position: [facility] Resident Member Role: PCP Address: Address: [address] [place] [address]- Care Team Related Persons Name: JESSIE TURNER Address: home [address] [place] [address] Name: RUPERT GUILLEN Address: home [address] [place] [address]
--- OUTSIDE RECORDS SUMMARY | 2023-03-04 05:39 | XMS_ITS | Continuity of Care Document ---
Author Name Unknown Organization [facility] Address [address] [place] [address]- Care Team Providers Care Analytical Scientist Name Role Phone Mando Zayas DO Primary Care Physician [phone] [place] [facility] [id number] Date(s): 07/08/22 - 08/07/[address] [address]- Attending Physician: Krishna Chaney Admitting Physician: AdmtrKrishna Referring Physician: Admtr, ArSalma Allergies, Adverse Reactions, Alerts No Known Allergies [...] tablet, 6 Refills, Maintenance, 05/20/22 16:29:00 EST, [facility], 174, cm, 05/01/22 7:24:00 EST, Height, 84.7, kg, 05/01/22 7:24:00 EST, Dry Weight Start Date: 05/20/22 Status: Ordered Carafate 1 gm oral tablet 1 Gm, 1, tablet, By Mouth, 4 times a day, # 120 tablet, Refills 2, Tot. Refills 2, Maintenance, 07/06/22 8:16:00 EST, Route to Pharmacy Electronically, [facility]/pharmacy #[id number], Partial fill upon patient request if the prescription is for a schedule II opio... Start Date: 07/06/22 Status: Ordered cetirizine 5 mg oral tablet = 5 mg, By Mouth, Daily, # 30 tablet, 2 Refills, Maintenance, 08/21/21 17:43:00 EDT, Tablet, [facility]/pharmacy #[id number], 175.26, cm, 08/21/21 13:24:00 EDT, Height Start [...] each, 2 Refills, Maintenance, 08/21/21 17:43:00 EDT, [place], [id number], 1 sprays Nares, Both 2 [...] 10:58:00 EST, Route to Pharmacy Electronically, [facility] STORE 78569, 175.26, cm, 12/24/21 9:40:00 EDT, Height Start [...] Refills, Maintenance, 08/23/21 11:46:00 EDT, Ointment, [facility]/pharmacy #[id number], Partial fill upon patient request if the prescription is for a schedule II opioid d... Start Date: 08/23/21 Status: Ordered MetFORMIN (Eqv-Glucophage XR) 500 mg oral tablet, extended release See Instructions, TAKE 2 TABLETS BY MOUTH EVERY DAY WITH EVENING MEAL, # 180 tablet, 3 Refills, 06/05/22 10:48:00 EST, [facility]/pharmacy #[id number], 174, cm, 06/05/22 10:11:00 EST, Height, [...] # 9 tablet, 1 Refills, Acute, [facility] ST[facility] 67723, 175.26, cm, 11/14/20 9:30:00 EDT, Height Start Date: 11/14/20 Status: Ordered omeprazole 20 mg oral enteric coated capsule 1 capsule = 20 mg, By Mouth, 2 times a day, # 180 capsule, 3 Refills, Maintenance, 03/31/22 13:49:00 EST, EC Capsule, [facility]/pharmacy #[id number], Partial fill upon patient request if the prescription is for a schedule II opioid drug., 175.26, cm, 03/31/22 13:... Start Date: 03/31/22 Stop Date: 03/26/23 Status: Ordered PEG-3350 with Electrolytes (Eqv-NuLYTELY) oral powder for reconstitution See Instructions, Please follow instructions from GI; NOT the instructions in the package insert., # 1 kit, 0 Refills, Maintenance, 07/28/22 13:00:00 EDT, [facility]/pharmacy #[id number], Okay to substitute with any gallon bowel prep., Please follow instructions f... Start Date: 07/28/22 Status: Ordered Pen [place], 29 G x 12.7 mm BD Ultra [...] Team Personnel Name: Thalia Rapp NP Position: [facility] Associate Professional Member Role: Primary Care Nurse Address: Address: [address] [place] [address] Trauma [place] [address]- Name: Mando Zayas DO Position: [facility] Resident Member Role: PCP Address: Address: [address] [place] [address]- Care Team Related Persons Name: JESSIE TURNER Address: home [address] [place] [address] Name: RUPERT GUILLEN Address: home [address] [place] [id number]
--- OUTSIDE RECORDS SUMMARY | 2023-03-04 05:39 | XMS_ITS | Continuity of Care Document ---
Author Name Unknown Organization [facility] Address [address] [place] [address]- Care Team Providers Care Online Banking Specialist Name Role Phone Mando Zayas DO Primary Care Physician Encounter [facility] Date(s): 05/22/22 - 06/21/[address] [address]- Allergies, Adverse Reactions, Alerts No Known Allergies [...] tablet, 6 Refills, Maintenance, 05/20/22 16:29:00 EST, [facility] ST[facility] [address]240, 174, cm, 05/01/22 7:24:00 EST, Height, 84.7, kg, 05/01/22 7:24:00 EST, Dry Weight Start Date: 05/20/22 Status: Ordered Carafate 1 gm oral tablet 1 Gm, 1, tablet, By Mouth, 4 times a day, # 120 tablet, Refills 2, Tot. Refills 2, Maintenance, 04/13/22 12:36:00 EST, Route to Pharmacy Electronically, [facility]/pharmacy #[id number], Partial fill upon patient request if the prescription is for a schedule II opi... Start Date: 04/13/22 Status: Ordered cetirizine 5 mg oral tablet = 5 mg, By Mouth, Daily, # 30 tablet, 2 Refills, Maintenance, 08/21/21 17:43:00 EDT, Tablet, [facility]/pharmacy #[id number], 175.26, cm, 08/21/21 13:24:00 [...] each, 2 Refills, Maintenance, 08/21/21 17:43:00 EDT, [place], [id number], 1 sprays Nares, Both 2 [...] 03/20/22 10:58:00 EST, Route to Pharmacy Electronically, [facility] [address]42, 175.26, cm, 12/24/21 9:40:00 EDT, Height Start [...] 2 Refills, Maintenance, 08/23/21 11:46:00 EDT, Ointment, [facility]/pharmacy #[id number], Partial fill upon patient [...] ONSET, # 9 tablet, 1 Refills, Acute, [facility] 23473, 175.26, cm, 11/14/20 9:30:00 EDT, Height Start [...] 03/31/22 Stop Date: 03/26/23 Status: Ordered Pen [place], 29 G x 12.7 mm BD Ultra [...] Rapp NP Position: [facility] Associate Professional Member Role: Primary Care Nurse Address: Address: [address] [place] [address] Trauma [place] [address]- Name: Mando Zayas DO Position: [facility] Resident Member Role: PCP Address: Address: [address] [place] [address]- Care Team Related Persons Name: JESSIE TURNER Address: home [address] [place] [address] Name: RUPERT GUILLEN Address: [address] [place] [address]
--- OUTSIDE RECORDS SUMMARY | 2023-03-04 05:39 | XMS_ITS | Continuity of Care Document ---
Author Name Unknown Organization [facility] Address [address] [place] [address]- Care Team Providers Care Winchman/Crane Operator Name Role Phone Mando Zayas DO Primary Care Physician [place] [facility] [place]/27/20 - 04/26/[address] [address] Attending Physician: Krishna Chaney Admitting Physician: AdmtrKrishna [...] 2 Refills, Maintenance, 03/15/20 17:00:00 EST, Tablet, [facility]/pharmacy #[id number], 175.26, cm, 03/15/20 13:14:00 EST, [...] 0 Refills, Maintenance, 03/16/20 13:21:00 EST, Gel, [facility]/pharmacy #[id number], 175.26, cm, 03/15/20 13:14:00 EST, [...] each, 2 Refills, Maintenance, 03/15/20 17:00:00 EST, [place], [facility]/pharmacy #[id number], 1 sprays Nares, Both 2 [...] Refills, Maintenance, 03/15/20 17:06:00 EST, ER Tablet, [facility]/pharmacy #[id number], 175.26, cm, 03/15/20 13:14:00 EST, [...] 0 Refills, Maintenance, 03/22/20 10:47:00 EST, Tablet, [facility]/pharmacy #[id number], Partial fill upo... Start Date: 03/22/20 [...] 0 Refills, Maintenance, 03/16/20 13:21:00 EST, Tablet, [id number], 175.26, cm, 03/15/20 [...]
--- OUTSIDE RECORDS SUMMARY | 2023-03-04 05:39 | XMS_ITS | Continuity of Care Document ---
Author Name Unknown Organization [facility] Address [address] [place] [address]- Care Team Providers Care Director Of Sustainability Name Role Phone Mando Zayas DO Primary Care Physician [phone] Encounter [facility] [place] Date(s): 11/20/21 - 12/20/[address] [address] Allergies, Adverse Reactions, Alerts No [...] 6 Refills, Maintenance, 08/06/21 19:02:00 EDT, Tablet, [facility]/pharmacy #[id number], Partial fill upon patient request if the prescription is for a schedule II opioid drug., 175.26, cm, 08/06/21 13:52:00 EDT, Height Start Date: 08/06/21 Stop Date: 03/04/22 Status: Ordered Carafate 1 gm oral tablet 1 Gm, 1, tablet, By Mouth, 4 times a day, # 120 tablet, Refills 0, Tot. Refills 0, Maintenance, 12/17/21 14:32:00 EDT, Route to Pharmacy Electronically, [facility]/pharmacy #[id number], [...] 0 Refills, Maintenance, 10/15/20 17:12:00 EDT, Gel, [facility]/pharmacy #[id number], 175.26, cm, 10/14/20 14:50:00 EDT, Height Start Date: 10/15/20 Status: Ordered divalproex sodium 500 mg oral enteric coated tablet 1 tablet = 500 mg, By Mouth, 2 times a day, # 60 tablet, 2 Refills, Maintenance, 06/07/20 10:01:00 EST, Tablet, [facility]/pharmacy #[id number], Partial fill upon patient request if the prescription is for a schedule II opioid drug., 175.26, cm, 03/15/20 13:14:00... Start Date: 06/07/20 Stop Date: 09/05/20 Status: Ordered Flonase 50 mcg/inh nasal spray 1 sprays, Nares, Both, 2 times a day, # 1 each, 2 Refills, Maintenance, 08/21/21 17:43:00 EDT, [place], [facility]/pharmacy #[id number], 1 sprays Nares, Both 2 times [...] MEAL, # 180 tablet, 0 Refills, [facility], 175.26, cm, 08/21/21 13:24:00 EDT, Height Start [...] 9 tablet, 1 Refills, Acute, [facility], 175.26, cm, 11/14/20 9:30:00 EDT, Height Start Date: 11/14/20 Status: Ordered omeprazole 20 mg oral enteric coated capsule 1 capsule = 20 mg, By Mouth, Daily, # 90 capsule, 0 Refills, Maintenance, 08/21/21 17:43:00 EDT, ECCapsule, [facility]/pharmacy #[id number], Partial fill upon patient request if the prescription is for a schedule II opioid drug., 175.26, cm, 08/21/21 13:24:00 EDT... Start Date: 08/21/21 Status: Ordered Pen [place], 29 G x 12.7 mm BD Ultra [...] 2 Unknown, 2 Refills, 12/11/21 12:33:00 EDT, [id number], 175.26, cm, 08/21/21 13:24:00 EDT, [...]
--- OUTSIDE RECORDS SUMMARY | 2023-03-04 05:39 | XMS_ITS | Continuity of Care Document ---
Author Name Unknown Organization [facility] Address [address] [place] [address]- Care Team Providers Care Warehouse Consultant Name Role Phone Mando Zayas DO Primary Care Physician [phone] Encounter [facility] Date(s): 11/23/22 - 12/23/22 [facility] [address] [place] [address] Attending Physician: Krishna Chaney Admitting Physician: [...] tablet, 6 Refills, Maintenance, 05/20/22 16:29:00 EST, [facility] STORE 29866, 174, cm, 05/01/22 7:24:00 EST, Height, 84.7, kg, 05/01/22 7:24:00 EST, Dry Weight Start Date: 05/20/22 Status: Ordered Carafate 1 gm oral tablet 1 Gm, 1, tablet, By Mouth, 4 times a day, # 120 tablet, Refills 2, Tot. Refills 2, Maintenance, 09/30/22 12:19:00 EDT, Route to Pharmacy Electronically, [facility]/pharmacy #[id number], Partial fill upon patient request if the prescription is for a schedule II opi... Start Date: 09/30/22 Status: Ordered cetirizine 5 mg oral tablet = 5 mg, By Mouth, Daily, # 30 tablet, 2 Refills, Maintenance, 08/21/21 17:43:00 EDT, Tablet, [facility]/pharmacy #[id number], 175.26, cm, 08/21/21 13:24:00 EDT, [...] 5 Refills, Maintenance, 10/29/22 12:11:00 EDT, Gel, [facility]/pharmacy #[id number], 175, cm, 08/26/22 10:18:00 EDT, Height, 85.5, kg, 08/26/22 10:18:00 EDT, DryWeight Start Date: 10/29/22 Status: Ordered dicyclomine 10 mg oral capsule [...] each, 2 Refills, Maintenance, 08/21/21 17:43:00 EDT, [place], [id number], 1 sprays Nares, Both 2 [...] at bedtime, # 30 capsule, Refills 5, Tot. Refills 5, Maintenance, 10/29/22 12:10:00 EDT, Route to Pharmacy Electronically, [facility]/pharmacy #[id number], 175, cm, 08/26/22 10:18:00 EDT, Height, 85.5, kg, 08/26/22 10:18:00 EDT, Dry Weight Start Date: 10/29/22 Status: Ordered lamotrigine 100 mg oral tablet, disintegrating 1 tablet = 100 mg, By Mouth, Daily, # 60 tablet, 0 Refills, Maintenance, 03/15/20 13:31:00 EST, DISTablet Start Date: 03/15/20 Status: Ordered lidocaine 5% topical ointment 1 application, Topically, 3 times a day, wash hands thoroughly after application, # 35 Gm, 2 Refills, Maintenance, 08/23/21 11:46:00 EDT, Ointment, [facility]/pharmacy #[id number], Partial fill upon patient request if the prescription is for a schedule II opioid d... Start Date: 08/23/21 Status: Ordered MetFORMIN (Eqv-Glucophage XR) 500 mg oral tablet, extended release See Instructions, TAKE 2 TABLETS BY MOUTH EVERY DAY WITH EVENING MEAL, # 180 tablet, 3 Refills, 06/05/22 10:48:00 EST, [facility]/pharmacy #[id number], 174, cm, 06/05/22 10:11:00 EST, [...] 1 Refills, Maintenance, 08/13/20 19:02:00 EDT, Tablet, [facility]/pharmacy #[id number], Partial fill upo... Start Date: 08/13/20 Status: Ordered naratriptan 2.5 mg oral tablet See Instructions, 1 TABLET BY MOUTH DAILY,PRN:FOR MIGRAINE HEADACHE,INSTR:MAY REPEAT DOSE ONCE IN 4HOURS, USE FOR SEVERE HEADACHES AT EARLIEST SYMPTOM ONSET, # 9 tablet, 1 Refills, Acute, [facility] 31623, 175.26, cm, 11/14/20 9:30:00 EDT, Height Start Date: 11/14/20 Status: Ordered omeprazole 20 mg oral enteric coated capsule 1 capsule = 20 mg, By Mouth, 2 times a day, # 180 capsule, 3 Refills, Maintenance, 03/31/22 13:49:00 EST, EC Capsule, [facility]/pharmacy #[id number], Partial fill upon patient request if the prescription is for a schedule II opioid drug., 175.26, cm, 03/31/22 13:... Start Date: 03/31/22 Stop Date: 03/26/23 Status: Ordered PEG-3350 with Electrolytes (Eqv-NuLYTELY) oral powder for reconstitution See Instructions, Please follow instructions from GI; NOT the instructions in the package insert., # 1 kit, 0 Refills, Maintenance, 07/28/22 13:00:00 EDT, [facility]/pharmacy #[id number], Okay to substitute with any gallon bowel prep., Please follow instructions f... Start Date: 07/28/22 Status: Ordered Pen [place], 29 G x 12.7 mm BD Ultra [...] Team Personnel Name: Thalia Rapp NP Position: [facility] Associate Professional Member Role: Primary Care Nurse Address: Address: [address] [place] [address] Trauma and Acute Care Surgery [address] Name: Mando Zayas DO Position: [facility] Resident Member Role: PCP Address: Address: [address] [place] [address]- Care Team Related Persons Name: JESSIE TURNER Address: home [address] [place] [address] Name: RUPERT GUILLEN Address: home [address] [place] [address]
--- OUTSIDE RECORDS SUMMARY | 2023-03-04 05:39 | XMS_ITS | Continuity of Care Document ---
Author Name Unknown Organization [facility] Address [address] [place] [address]- Care Team Providers Care Business Development Consultant Name Role Phone Mando Zayas DO Primary Care Physician [phone] Encounter [facility] Date(s): 09/30/20 - 10/30/[address] [address]- Allergies, Adverse Reactions, Alerts Substance Reaction Severity [...] Refills, Maintenance, 03/15/20 17:00:00 EST, Tablet, [facility]/pharmacy #[id number], 175.26, cm, 03/15/20 13:14:00 EST, [...] Maintenance, 10/15/20 17:12:00 EDT, Gel, [facility]/pharmacy #[id number], 175.26, cm, 10/14/20 14:50:00 EDT, [...] Date: 06/07/20 Stop Date: 09/05/20 Status: Ordered famotidine 10 mg oral tablet 1 tablet = 10 mg, By Mouth, Daily, PRN Dyspepsia, # 30 tablet, 1 Refills, Maintenance, 10/14/20 17:12:00 EDT, Tablet, [facility]/pharmacy #[id number], Partial fill upon patient request if the prescription is for a schedule II opioid drug., 175.26, cm, 10/14/20 14:... Start Date: 10/14/20 Status: Ordered Flonase 50 mcg/inh nasal spray 1 sprays, Nares, Both, 2 times a day, # 1 each, 2 Refills, Maintenance, 03/15/20 17:00:00 EST, [place], [facility]/pharmacy #[id number], 1 sprays Nares, Both 2 [...] Daily at bedtime, # 30 capsule, Refills 0, Tot. Refills 0, Maintenance, 10/14/20 16:36:00 EDT, Route to Pharmacy Electronically, [facility]/pharmacy #[id number], Partial fill upon patient request if the prescription is for a schedule... Start Date: 10/14/20 Status: Ordered lamotrigine 100 mg oral tablet, disintegrating 1 tablet = 100 mg, By Mouth, Daily, # 60 tablet, 0 Refills, Maintenance, 03/15/20 13:31:00 EST, DISTablet Start Date: 03/15/20 Status: Ordered lidocaine 5% topical ointment 1 application, Topically, 3 times a day, wash hands thoroughly after application, # 35 Gm, 0 Refills, Maintenance, 09/30/20 16:55:00 EDT, Ointment, [facility]/pharmacy #[id number], Partial fill upon patient request [...] Maintenance, 08/13/20 19:02:00 EDT, Tablet, [facility]/pharmacy #[id number], Partial fill upo... Start Date: 08/13/20 Status: Ordered sildenafil 50 mg oral tablet [...] = 0.75 mg, Subcutaneous Injection, Every week, # 2.5 mL, 3 Refills, Maintenance, 10/14/20 16:02:00 EDT, Solution, [facility]/pharmacy #[id number], Partial fill upon patient request if the prescription is for a schedule II opioid drug., 175.26, cm, 10/14/20... Start Date: 10/14/20 Status: Ordered Tylenol Extra Strength 500 mg oral tablet 2 tablet = 1,000 mg, By Mouth, Every 4 hours, PRN for pain, not to exceed 3000 mg/day okay to take prior to PT, # 120 tablet, 0 Refills, Maintenance, 09/30/20 16:09:00 EDT, Tablet, [facility]/pharmacy #[id number], 175.26, cm, 03/15/20 13:14:00 EST, [...]
--- OUTSIDE RECORDS SUMMARY | 2023-03-04 05:39 | XMS_ITS | Continuity of Care Document ---
Author Name Unknown Organization [facility] Address [address] [place] [address]- Care Team Providers Care Special Needs Babysitter Name Role Phone Mando Zayas DO Primary Care Physician [phone] Encounter [facility] Date(s): 08/25/22 - 12/23/22 [facility] [address] [address] Attending Physician: Yamil OLIVEIRA, Citlalli Claire Admitting Physician: Yamil OLIVEIRA, Citlalli Claire Referring Physician: Mando Zayas DO Allergies, Adverse Reactions, Alerts No Known Allergies [...] tablet, 6 Refills, Maintenance, 05/20/22 16:29:00 EST, [facility] [address]1990, 174, cm, 05/01/22 7:24:00 EST, Height, 84.7, kg, 05/01/22 7:24:00 EST, Dry Weight Start Date: 05/20/22 Status: Ordered Carafate 1 gm oral tablet 1 Gm, 1, tablet, By Mouth, 4 times a day, # 120 tablet, Refills 2, Tot. Refills 2, Maintenance, 09/30/22 12:19:00 EDT, Route to Pharmacy Electronically, [facility]/pharmacy #[id number], Partial fill upon patient request if the prescription is for a schedule II opi... Start Date: 09/30/22 Status: Ordered cetirizine 5 mg oral tablet = 5 mg, By Mouth, Daily, # 30 tablet, 2 Refills, Maintenance, 08/21/21 17:43:00 EDT, Tablet, [facility]/pharmacy #[id number], 175.26, cm, 08/21/21 13:24:00 [...] 5 Refills, Maintenance, 10/29/22 12:11:00 EDT, Gel, [facility]/pharmacy #[id number], 175, cm, 08/26/22 10:18:00 EDT, Height, [...] each, 2 Refills, Maintenance, 08/21/21 17:43:00 EDT, [place], [id number], 1 sprays Nares, Both 2 [...] 10/29/22 12:10:00 EDT, Route to Pharmacy Electronically, [facility]/pharmacy #[id number], 175, cm, 08/26/22 10:18:00 EDT, Height, [...] Maintenance, 08/23/21 11:46:00 EDT, Ointment, [facility]/pharmacy #[id number], Partial fill upon patient request if the prescription is for a schedule II opioid d... Start Date: 08/23/21 Status: Ordered MetFORMIN (Eqv-Glucophage XR) 500 mg oral tablet, extended release See Instructions, TAKE 2 TABLETS BY MOUTH EVERY DAY WITH EVENING MEAL, # 180 tablet, 3 Refills, 06/05/22 10:48:00 EST, [facility]/pharmacy #[id number], 174, cm, 06/05/22 10:11:00 [...] [facility] 79281, 175.26, cm, 11/14/20 9:30:00 EDT, Height Start Date: 11/14/20 Status: Ordered omeprazole 20 mg oral enteric coated capsule 1 capsule = 20 mg, By Mouth, 2 times a day, # 180 capsule, 3 Refills, Maintenance, 03/31/22 13:49:00 EST, EC Capsule, [facility] [...] kit, 0 Refills, Maintenance, 07/28/22 13:00:00 EDT, [facility]/pharmacy #[id number], Okay to substitute with any gallon bowel prep., Please follow instructions f... Start Date: 07/28/22 Status: Ordered Pen [place], 29 G x 12.7 mm BD Ultra [...] Team Personnel Name: Thalia Rapp NP Position: [facility] Associate Professional Member Role: Primary Care Nurse Address: Address: [address] [place] [address] Trauma and Acute Care Surgery [address] Name: Mando Zayas DO Position: [facility] Resident Member Role: PCP Address: Address: [address] [place] [address]- Care Team Related Persons Name: JESSIE TURNER Address: home [address] [place] [address] Name: RUPERT GUILLEN Address: home [address] [place] [address]
--- OUTSIDE RECORDS SUMMARY | 2023-03-04 05:39 | XMS_ITS | Continuity of Care Document ---
Author Name Unknown Organization [facility] Address [address] [place] [address]- Care Team Providers Care Coal Carrier Name Role Phone Mando Zayas DO Primary Care Physician [phone] [place] [facility] [place] 08/27/22 - 09/26/22 [facility] [address] [place] [address]- Allergies, Adverse Reactions, Alerts No Known Allergies Immunizations Given and Recorded Vaccine Date Status Refusal Reason influenza virus vaccine, inactivated 03/31/22 Give n influenza virus vaccine, inactivated 08/21/21 Give n influenza virus vaccine, inactivated 02/12/20 Aly rded influenza virus vaccine, inactivated 03/08/17 Aly rded influenza virus vaccine, inactivated 03/23/16 Aly rded influenza virus vaccine, inactivated 02/25/15 Ayl rded influenza virus vaccine, inactivated 03/23/14 Give [...] tablet, 6 Refills, Maintenance, 05/20/22 16:29:00 EST, [facility] STORE [address]17, 174, cm, 05/01/22 7:24:00 EST, Height, 84.7, kg, 05/01/22 7:24:00 EST, Dry Weight Start Date: 05/20/22 Status: Ordered Carafate 1 gm oral tablet 1 Gm, 1, tablet, By Mouth, 4 times a day, # 120 tablet, Refills 2, Tot. Refills 2, Maintenance, 07/06/22 8:16:00 EST, Route to Pharmacy Electronically, [facility]/pharmacy #[id number], Partial fill upon patient request if the prescription is for a schedule II opio... Start Date: 07/06/22 Status: Ordered cetirizine 5 mg oral tablet = 5 mg, By Mouth, Daily, # 30 tablet, 2 Refills, Maintenance, 08/21/21 17:43:00 EDT, Tablet, [facility]/pharmacy #[id number], 175.26, cm, 08/21/21 13:24:00 EDT, [...] each, 2 Refills, Maintenance, 08/21/21 17:43:00 EDT, [place], [id number], 1 sprays Nares, Both 2 [...] 03/20/22 10:58:00 EST, Route to Pharmacy Electronically, [facility] STORE 39554, 175.26, cm, 12/24/21 9:40:00 EDT, Height Start [...] 2 Refills, Maintenance, 08/23/21 11:46:00 EDT, Ointment, [facility]/pharmacy #[id number], Partial fill upon patient [...] ONSET, # 9 tablet, 1 Refills, Acute, [facility] ST[facility] 29900, 175.26, cm, 11/14/20 9:30:00 EDT, Height Start Date: 11/14/20 Status: Ordered omeprazole 20 mg oral enteric coated capsule 1 capsule = 20 mg, By Mouth, 2 times a day, # 180 capsule, 3 Refills, Maintenance, 03/31/22 13:49:00 EST, EC Capsule, [facility]/pharmacy #[id number], Partial fill upon patient request if the prescription is for a schedule II opioid drug., 175.26, cm, 03/31/22 13:... Start Date: 03/31/22 Stop Date: 03/26/23 Status: Ordered PEG-3350 with Electrolytes (Eqv-NuLYTELY) oral powder for reconstitution See Instructions, Please follow instructions from GI; NOT the instructions in the package insert., # 1 kit, 0 Refills, Maintenance, 07/28/22 13:00:00 EDT, [facility]/pharmacy #[id number], Okay to substitute with any gallon bowel prep., Please follow instructions f... Start Date: 07/28/22 Status: Ordered Pen [place], 29 G x 12.7 mm BD Ultra [...] Team Personnel Name: Thalia Rapp NP Position: [facility] Associate Professional Member Role: Primary Care Nurse Address: Address: [address] [place] [address] Trauma and [place] [address]- Name: Mando Zayas DO Position: [facility] Resident Member Role: PCP Address: Address: [address] [place] [address]- Care Team Related Persons Name: JESSIE TURNER Address: home [address] [place] [address] Name: RUPERT GUILLEN Address: home [address] [place] [address]
--- OUTSIDE RECORDS SUMMARY | 2023-03-04 05:39 | XMS_ITS | Continuity of Care Document ---
Author Name Unknown Organization [facility] Address [address] [place] [address]- Care Team Providers Care Cork Mixer Name Role Phone Mando Zayas DO Primary Care Physician Encounter [facility] Date(s): 09/11/22 - 10/11/[address] [address]- Encounter Diagnosis Diabetes mellitus type 2(Discharge Diagnosis) - 09/11/22 Allergies, Adverse Reactions, Alerts No Known Allergies [...] tablet, 6 Refills, Maintenance, 05/20/22 16:29:00 EST, [facility] STORE 56912, 174, cm, 05/01/22 7:24:00 EST, Height, 84.7, kg, 05/01/22 7:24:00 EST, Dry Weight Start Date: 05/20/22 Status: Ordered Carafate 1 gm oral tablet 1 Gm, 1, tablet, By Mouth, 4 times a day, # 120 tablet, Refills 2, Tot. Refills 2, Maintenance, 09/30/22 12:19:00 EDT, Route to Pharmacy Electronically, [facility]/pharmacy #[id number], Partial fill upon patient request if the prescription is for a schedule II opi... Start Date: 09/30/22 Status: Ordered cetirizine 5 mg oral tablet = 5 mg, By Mouth, Daily, # 30 tablet, 2 Refills, Maintenance, 08/21/21 17:43:00 EDT, Tablet, [facility]/pharmacy #[id number], 175.26, cm, 08/21/21 [...] each, 2 Refills, Maintenance, 08/21/21 17:43:00 EDT, [place], [id number], 1 sprays Nares, Both 2 [...] 03/20/22 10:58:00 EST, Route to Pharmacy Electronically, [facility] STORE 08521, 175.26, cm, 12/24/21 9:40:00 EDT, Height Start [...] 2 Refills, Maintenance, 08/23/21 11:46:00 EDT, Ointment, [facility]/pharmacy #[id number], Partial fill upon patient request if the prescription is for a schedule II opioid d... Start Date: 08/23/21 Status: Ordered MetFORMIN (Eqv-Glucophage XR) 500 mg oral tablet, extended release See Instructions, TAKE 2 TABLETS BY MOUTH EVERY DAY WITH EVENING MEAL, # 180 tablet, 3 Refills, 06/05/22 10:48:00 EST, [facility]/pharmacy #[id number], 174, cm, 06/05/22 10:11:00 EST, [...] 1 Refills, Maintenance, 08/13/20 19:02:00 EDT, Tablet, [facility]/pharmacy #[id number], Partial fill upo... Start Date: 08/13/20 Status: Ordered naratriptan 2.5 mg oral tablet See Instructions, 1 TABLET BY MOUTH DAILY,PRN:FOR MIGRAINE HEADACHE,INSTR:MAY REPEAT DOSE ONCE IN 4HOURS, USE FOR SEVERE HEADACHES AT EARLIEST SYMPTOM ONSET, # 9 tablet, 1 Refills, Acute, [facility], 175.26, cm, 11/14/20 9:30:00 EDT, Height Start Date: 11/14/20 Status: Ordered omeprazole 20 mg oral enteric coated capsule 1 capsule = 20 mg, By Mouth, 2 times a day, # 180 capsule, 3 Refills, Maintenance, 03/31/22 13:49:00 EST, EC Capsule, [facility]/pharmacy #[id number], Partial fill upon patient request if the prescription is for a schedule II opioid drug., 175.26, cm, 03/31/22 13:... Start Date: 03/31/22 Stop Date: 03/26/23 Status: Ordered PEG-3350 with Electrolytes (Eqv-NuLYTELY) oral powder for reconstitution See Instructions, Please follow instructions from GI; NOT the instructions in the package insert., # 1 kit, 0 Refills, Maintenance, 07/28/22 13:00:00 EDT, [facility]/pharmacy #[id number], Okay to substitute with any gallon bowel prep., Please follow instructions f... Start Date: 07/28/22 Status: Ordered Pen [place], 29 G x 12.7 mm BD Ultra [...] complication Confirmed 12/28/18 Active 1on methadone clinic Diagnosis Diagnosis Type Effective Dates Health Status Cl inical Service Informant Diabetes mellitus type 2 Discharge Diagnosis 09/11/22 Non-Specified Social History Social History Type Response Smoking Status Never smoker; Tobacc o user in household: No entered on: 07/13/14 Sex Patient Care team information Care Team Personnel Name: Thalia Rapp NP Position: [facility] Associate Professional Member Role: Primary Care Nurse Address: Address: [address] [place] [address] Trauma [place] [address]- Name: Mando Zayas DO Position: [facility] Resident Member Role: PCP Address: Address: [address] [place] [address]- Care Team Related Persons Name: JESSIE TURNER Address: home [address] [place] [address] Name: RUPERT GUILLEN Address: home [address] [place] [id number]
--- OUTSIDE RECORDS SUMMARY | 2023-03-04 05:39 | XMS_ITS | Continuity of Care Document ---
Author Name Unknown Organization [facility] Address [address] [place] [address]- Care Team Providers Care Combination Window Installer Name Role Phone Mando Zayas DO Primary Care Physician Encounter [facility] Date(s): 05/23/20 - 06/22/[address] [address]- Allergies, Adverse Reactions, Alerts Substance Reaction Severity [...] 0 Refills, Maintenance, 03/16/20 13:21:00 EST, Gel, [facility]/pharmacy #[id number], 175.26, cm, 03/15/20 13:14:00 EST, Height Start Date: 03/16/20 Status: Ordered divalproex sodium 500 mg oral enteric coated tablet 1 tablet = 500 mg, By Mouth, 2 times a day, # 60 tablet, 2 Refills, Maintenance, 06/07/20 10:01:00 EST, Tablet, [facility]/pharmacy #[id number], Partial fill upon patient request if the prescription is for a schedule II opioid drug., 175.26, cm, 03/15/20 13:14:00... Start Date: 06/07/20 Stop Date: 09/05/20 Status: Ordered Flonase 50 mcg/inh nasal spray 1 sprays, Nares, Both, 2 times a day, # 1 each, 2 Refills, Maintenance, 03/15/20 17:00:00 EST, [place], [id number], 1 sprays Nares, Both 2 [...] 0 Refills, Maintenance, 03/16/20 13:21:00 EST, Tablet, [facility]/pharmacy #[id number], 175.26, cm, 03/15/20 13:14:00 EST, [...]
--- OUTSIDE RECORDS SUMMARY | 2023-03-04 05:39 | XMS_ITS | Continuity of Care Document ---
Author Name Unknown Organization [facility] Address [address] [place] [address]- Care Team Providers Care Air Brake Operator Name Role Phone Mando Zayas DO Primary Care Physician Encounter [facility] Date(s): 07/29/22 - 08/28/[address] [address]- Allergies, Adverse Reactions, Alerts No Known Allergies [...] tablet, 6 Refills, Maintenance, 05/20/22 16:29:00 EST, [facility] STORE 47678, 174, cm, 05/01/22 7:24:00 EST, Height, 84.7, kg, 05/01/22 7:24:00 EST, Dry Weight Start Date: 05/20/22 Status: Ordered Carafate 1 gm oral tablet 1 Gm, 1, tablet, By Mouth, 4 times a day, # 120 tablet, Refills 2, Tot. Refills 2, Maintenance, 07/06/22 8:16:00 EST, Route to Pharmacy Electronically, [facility]/pharmacy #[id number], Partial fill upon patient request if the prescription is for a schedule II opio... Start Date: 07/06/22 Status: Ordered cetirizine 5 mg oral tablet = 5 mg, By Mouth, Daily, # 30 tablet, 2 Refills, Maintenance, 08/21/21 17:43:00 EDT, Tablet, [facility]/pharmacy #[id number], 175.26, cm, 08/21/21 13:24:00 [...] each, 2 Refills, Maintenance, 08/21/21 17:43:00 EDT, [place], [id number], 1 sprays Nares, Both 2 [...] 03/20/22 10:58:00 EST, Route to Pharmacy Electronically, [facility] STORE 47163, 175.26, cm, 12/24/21 9:40:00 EDT, Height Start [...] 2 Refills, Maintenance, 08/23/21 11:46:00 EDT, Ointment, [facility]/pharmacy #[id number], Partial fill upon patient [...] ONSET, # 9 tablet, 1 Refills, Acute, [facility] STORE 20409, 175.Salma, cm, 11/14/20 9:30:00 EDT, Height Start Date: 11/14/20 Status: Ordered omeprazole 20 mg oral enteric coated capsule 1 capsule = 20 mg, By Mouth, 2 times a day, # 180 capsule, 3 Refills, Maintenance, 03/31/22 13:49:00 EST, EC Capsule, [facility]/pharmacy #[id number], Partial fill upon patient request if the prescription is for a schedule II opioid drug., 175.26, cm, 03/31/22 13:... Start Date: 03/31/22 Stop Date: 03/26/23 Status: Ordered PEG-3350 with Electrolytes (Eqv-NuLYTELY) oral powder for reconstitution See Instructions, Please follow instructions from GI; NOT the instructions in the package insert., # 1 kit, 0 Refills, Maintenance, 07/28/22 13:00:00 EDT, [facility]/pharmacy #[id number], Okay to substitute with any gallon bowel prep., Please follow instructions f... Start Date: 07/28/22 Status: Ordered Pen [place], 29 G x 12.7 mm BD Ultra [...] 2 Unknown, 3 Refills, 06/05/22 10:47:00 EST, [facility]/pharmacy #[id number], 174, cm, 06/05/22 10:11:00 EST, Height, 84.7, kg, 05/01/22 7:24:00 EST, Dry Weight Start Date: 06/05/22 Status: Ordered Tylenol Extra Strength 500 mg oral tablet 2 tablet = 1,000 mg, By Mouth, 3 times a day, PRN for pain, not to exceed 3000 mg/day, # 100 tablet, 1 Refills, Maintenance, 08/21/21 17:44:00 EDT, Tablet, [facility]/pharmacy #[id number], 175.26, cm, 08/21/21 13:24:00 [...] Team Personnel Name: Thalia Rapp NP Position: [facility] Associate Professional Member Role: Primary Care Nurse Address: Address: [address] [place] [address] Trauma [place] [address]- Name: Mando Zayas DO Position: [facility] Resident Member Role: PCP Address: Address: [address] [place] [address]- Care Team Related Persons Name: JESSIE TURNER Address: home [address] [place] [address] Name: RUPERT GUILLEN Address: home [address] [place] [address]
--- OUTSIDE RECORDS SUMMARY | 2023-03-04 05:39 | XMS_ITS | Continuity of Care Document ---
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 Refills 2, Maintenance, 09/30/22 12:19:00 EDT, Route to Pharmacy Electronically, [facility]/pharmacy #[id number], Partial fill upon patient request if the prescription is for a schedule II opi... Start Date: 09/30/22 Status: Ordered cetirizine 5 mg oral tablet = 5 mg, By Mouth, Daily, # 30 tablet, 2 Refills, Maintenance, 08/21/21 17:43:00 EDT, Tablet, [facility]/pharmacy #[id number], 175.26, cm, 08/21/21 13:24:00 EDT, Height [...] 5 Refills, Maintenance, 10/29/22 12:11:00 EDT, Gel, [facility]/pharmacy #[id number], 175, cm, 08/26/22 10:18:00 EDT, Height, [...] each, 2 Refills, Maintenance, 08/21/21 17:43:00 EDT, [place], [id number], 1 sprays Nares, Both 2 [...] 10/29/22 12:10:00 EDT, Route to Pharmacy Electronically, [facility]/pharmacy #[id number], 175, cm, 08/26/22 10:18:00 EDT, Height, [...] Refills, Maintenance, 08/23/21 11:46:00 EDT, Ointment, [facility]/pharmacy #[id number], Partial fill upon patient request if the prescription is for a schedule II opioid d... Start Date: 08/23/21 Status: Ordered MetFORMIN (Eqv-Glucophage XR) 500 mg oral tablet, extended release See Instructions, TAKE 2 TABLETS BY MOUTH EVERY DAY WITH EVENING MEAL, # 180 tablet, 3 Refills, 06/05/22 10:48:00 EST, [facility]/pharmacy #[id number], 174, cm, 06/05/22 10:11:00 EST, Height, [...] Refills, Maintenance, 08/13/20 19:02:00 EDT, Tablet, [facility]/pharmacy #[id number], Partial fill upo... Start Date: 08/13/20 Status: Ordered naratriptan 2.5 mg oral tablet See Instructions, 1 TABLET BY MOUTH DAILY,PRN:FOR MIGRAINE HEADACHE,INSTR:MAY REPEAT DOSE ONCE IN 4HOURS, USE FOR SEVERE HEADACHES AT EARLIEST SYMPTOM ONSET, # 9 tablet, 1 Refills, Acute, [facility] 18997, 175.26, cm, 11/14/20 9:30:00 EDT, Height Start Date: 11/14/20 Status: Ordered omeprazole 20 mg oral enteric coated capsule 1 capsule = 20 mg, By Mouth, 2 times a day, # 180 capsule, 3 Refills, Maintenance, 03/31/22 13:49:00 EST, EC Capsule, [facility]/pharmacy #[id number], Partial fill upon patient request if the prescription is for a schedule II opioid drug., 175.26, cm, 03/31/22 13:... Start Date: 03/31/22 Stop Date: 03/26/23 Status: Ordered PEG-3350 with Electrolytes (Eqv-NuLYTELY) oral powder for reconstitution See Instructions, Please follow instructions from GI; NOT the instructions in the package insert., # 1 kit, 0 Refills, Maintenance, 07/28/22 13:00:00 EDT, [facility]/pharmacy #[id number], Okay to substitute with any gallon bowel prep., Please follow instructions f... Start Date: 07/28/22 Status: Ordered Pen [place], 29 G x 12.7 mm BD Ultra [...] Member Role: Primary Care Nurse Address: Address: [address] [place] [address] Trauma and Acute Care Surgery [address] Name: Mando Zayas DO Position: [facility] Resident Member Role: PCP Address: Address: [address] [place] [address]- Care Team Related Persons Name: JESSIE TURNER Address: home [address] [place] [address] Name: RUPERT GUILLEN Address: home [address] [place] [address]
--- OUTSIDE RECORDS SUMMARY | 2023-03-04 05:39 | XMS_ITS | Continuity of Care Document ---
Author Name Unknown Organization 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 Role Phone Mando Zayas DO Primary Care Physician Encounter [facility] Date(s): 06/20/22 - 07/29/[address] [address] Attending Physician: Johanna Morales NP Admitting Physician: Johanna Morales NP Referring Physician: oJhanna Morales NP Allergies, Adverse Reactions, Alerts No Known Allergies [...] 6 Refills, Maintenance, 05/20/22 16:29:00 EST, [facility] STORE 28780, 174, cm, 05/01/22 7:24:00 EST, Height, 84.7, kg, 05/01/22 7:24:00 EST, Dry Weight Start Date: 05/20/22 Status: Ordered Carafate 1 gm oral tablet 1 Gm, 1, tablet, By Mouth, 4 times a day, # 120 tablet, Refills 2, Tot. Refills 2, Maintenance, 07/06/22 8:16:00 EST, Route to Pharmacy Electronically, [facility]/pharmacy #[id number], Partial fill upon patient request if the prescription is for a schedule II opio... Start Date: 07/06/22 Status: Ordered cetirizine 5 mg oral tablet = 5 mg, By Mouth, Daily, # 30 tablet, 2 Refills, Maintenance, 08/21/21 17:43:00 EDT, Tablet, [facility]/pharmacy #[id number], 175.26, cm, 08/21/21 13:24:00 [...] each, 2 Refills, Maintenance, 08/21/21 17:43:00 EDT, [place], [id number], 1 sprays Nares, Both 2 [...] 10:58:00 EST, Route to Pharmacy Electronically, [facility] STORE 94012, 175.26, cm, 12/24/21 9:40:00 EDT, Height Start [...] Refills, Maintenance, 08/23/21 11:46:00 EDT, Ointment, [facility]/pharmacy #[id number], Partial fill upon patient [...] Refills, Maintenance, 08/13/20 19:02:00 EDT, Tablet, [facility]/pharmacy #[id number], Partial fill upo... Start Date: 08/13/20 Status: Ordered naratriptan 2.5 mg oral tablet See Instructions, 1 TABLET BY MOUTH DAILY,PRN:FOR MIGRAINE HEADACHE,INSTR:MAY REPEAT DOSE ONCE IN 4HOURS, USE FOR SEVERE HEADACHES AT EARLIEST SYMPTOM ONSET, # 9 tablet, 1 Refills, Acute, [facility], 175.26, cm, 11/14/20 9:30:00 EDT, Height Start [...] f... Start Date: 07/28/22 Status: Ordered Pen [place], 29 G x 12.7 mm BD Ultra [...] 2 Unknown, 3 Refills, 06/05/22 10:47:00 EST, [facility]/pharmacy #[id number], 174, cm, 06/05/22 10:11:00 EST, Height, 84.7, kg, 05/01/22 7:24:00 EST, Dry Weight Start Date: 06/05/22 Status: Ordered Tylenol Extra Strength 500 mg oral tablet 2 tablet = 1,000 mg, By Mouth, 3 times a day, PRN for pain, not to exceed 3000 mg/day, # 100 tablet, 1 Refills, Maintenance, 08/21/21 17:44:00 EDT, Tablet, [facility]/pharmacy #[id number], 175.26, cm, 08/21/21 13:24:00 [...] Personnel Name: Thalia Rapp NP Position: [facility] Associate Professional Member Role: Primary Care Nurse Address: Address: [address] [place] [address] Trauma and [place] [address]- Name: Mando Zayas DO Position: [facility] Resident Member Role: PCP Address: Address: [address] [place] [address]- Care Team Related Persons Name: JESSIE TURNER Address: home [address] [place] [address] Name: RUPERT GUILLEN Address: home [address] [place] [address]
--- OUTSIDE RECORDS SUMMARY | 2023-03-04 05:39 | XMS_ITS | Continuity of Care Document ---
Author Name Unknown Organization 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 Phone Mando Zayas DO Primary Care Physician [phone] Encounter [facility] Date(s): 05/01/22 - 05/01/[address] [address]- Discharge Disposition: A-D/C Home Attending Physician: Nay Avila MD Admitting Physician: Nay Avila MD Referring Physician: Nay Avila MD Allergies, Adverse Reactions, Alerts No Known [...] 6 Refills, Maintenance, 08/06/21 19:02:00 EDT, Tablet, [facility]/pharmacy #[id number], Partial fill upon [...] 04/13/22 12:36:00 EST, Route to Pharmacy Electronically, [facility]/pharmacy #[id number], Partial fill upon patient request if the prescription is for a schedule II opi... Start Date: 04/13/22 Status: Ordered cetirizine 5 mg oral tablet = 5 mg, By Mouth, Daily, # 30 tablet, 2 Refills, Maintenance, 08/21/21 17:43:00 EDT, Tablet, [facility]/pharmacy #[id number], 175.26, cm, 08/21/21 13:24:00 [...] 03/31/22 13:59:00 EST, Route to Pharmacy Electronically, [facility]/pharmacy #[id number], Partial fill upon patient request if t... Start Date: 03/31/22 Stop Date: 05/09/22 Status: Ordered diclofenac 1% topical gel 1 application, Topically, 4 times a day, # 100 Gm, 0 Refills, Maintenance, 10/15/20 17:12:00 EDT, Gel, [facility]/pharmacy #[id number], 175.26, cm, 10/14/20 14:50:00 EDT, Height Start Date: 10/15/20 Status: Ordered dicyclomine 10 mg oral capsule 2 capsule = 20 mg, By Mouth, 4 times a day, PRN abdominal pain, # 112 capsule, 1 Refills, Maintenance, 12/24/21 10:31:00 EDT, Capsule, [facility]/pharmacy #[id number], Partial fill upon patient request if the prescription is for a schedule II opioid drug., 175.26,... Start Date: 12/24/21 Stop Date: 01/21/22 Status: Ordered divalproex sodium 500 mg oral enteric coated tablet 1 tablet = 500 mg, By Mouth, 2 times a day, # 60 tablet, 2 Refills, Maintenance, 06/07/20 10:01:00 EST, Tablet, [facility]/pharmacy #[id number], Partial fill upon patient request if the prescription is for a schedule II opioid drug., 175.26, cm, 03/15/20 13:14:00... Start Date: 06/07/20 Stop Date: 09/05/20 Status: Ordered Flonase 50 mcg/inh nasal spray 1 sprays, Nares, Both, 2 times a day, # 1 each, 2 Refills, Maintenance, 08/21/21 17:43:00 EDT, [place], [id number], 1 sprays Nares, Both 2 [...] 03/20/22 10:58:00 EST, Route to Pharmacy Electronically, [facility] STORE 58804, 175.26, cm, 12/24/21 9:40:00 EDT, Height Start [...] 2 Refills, Maintenance, 08/23/21 11:46:00 EDT, Ointment, [facility]/pharmacy #[id number], Partial fill upon patient request if the prescription is for a schedule II opioid d... Start Date: 08/23/21 Status: Ordered MetFORMIN (Eqv-Glucophage XR) 500 mg oral tablet, extended release See Instructions, TAKE 2 TABLETS BY MOUTH EVERY DAY WITH EVENING MEAL, # 180 tablet, 0 Refills, 03/24/22 12:04:00 EST, [facility]/pharmacy #[id number], 175.26, cm, 12/24/21 9:40:00 EDT, Height [...] 1 Refills, Maintenance, 08/13/20 19:02:00 EDT, Tablet, [facility]/pharmacy #[id number], Partial fill upo... Start Date: 08/13/20 Status: Ordered naratriptan 2.5 mg oral tablet See Instructions, 1 TABLET BY MOUTH DAILY,PRN:FOR MIGRAINE HEADACHE,INSTR:MAY REPEAT DOSE ONCE IN 4HOURS, USE FOR SEVERE HEADACHES AT EARLIEST SYMPTOM ONSET, # 9 tablet, 1 Refills, Acute, [facility], 175.26, cm, 11/14/20 9:30:00 EDT, Height Start [...] 03/31/22 Stop Date: 03/26/23 Status: Ordered Pen [place], 29 G x 12.7 mm BD Ultra [...] 1 Refills, Maintenance, 08/21/21 17:44:00 EDT, Tablet, [facility]/pharmacy #[id number], 175.26, cm, 08/21/21 13:24:00 [...] complication Confirmed 12/28/18 Active 1on methadone clinic Vital Signs Most recent to oldest [Reference Range]: 1 2 3 Height 174 cm (05/01/22 7:24 AM) Weight 84.7 kg (05/01/22 7:24 AM) Oxygen Saturation [94-100 %] 93 % *L* (05/01/22 9:40 AM) 96 % (05/01/22 9:35 AM) 94 % (05/01/22 9:30 AM) Pulse Rate [55-90 bpm] 92 bpm *H* (05/01/22 7:24 AM) Body Mass Index [18.5-24.99 kg/m2] 27.98 kg/m2 *H* (05/01/22 7:24 AM) Blood Pressure [90-138/55-84 mm Hg] 118/82mm Hg (05/01/22 9:40 AM) 102/78mm Hg (05/01/22 9:35 AM) 108/75mm Hg (05/01/22 9:30 AM) Respiratory Rate [16-30 br/min] 14 br/min *L* (05/01/22 9:40 AM) 13 br/min *L* (05/01/22 9:35 AM) 18 br/min (05/01/22 9:30 AM) Temperature [96.8-100.4 DegF] 97.6 DegF (05/01/22 7:24 AM) Liters per Minute 4 L/min (05/01/22 9:35 AM) 4 L/min (05/01/22 9:30 AM) 4 L/min (05/01/22 9:20 AM) Mode of Delivery (Oxygen) Room air (05/01/22 9:55 AM) Room air (05/01/22 7:24 AM) Blood pressure sites Arm, left (05/01/22 7:24 AM) Temperature Route Temporal (05/01/22 7:24 AM) Dry Weight 84.7 kg (05/01/22 7:24 AM) Dry Weight Obtained Via Standing scale (05/01/22 7:24 AM) Social History Social History Type Response Smoking Status Never smoker; Tobacc o user in household: No entered on: 07/13/14 Sex Endoscopy study * Event Display: GG EGD Please click on pdf link to open report Patient Care team information Care Team Personnel Name: Thalia Rapp NP Position: [facility] Associate Professional Member Role: Primary Care Nurse Address: Address: [address] [place] [address] Trauma [place] [address]- Name: Mando Zayas DO Position: [facility] Resident Member Role: PCP Address: Address: [address] [place] [address]- Care Team Related Persons Name: JESSIE TURNER Address: home [address] [place] [address] Name: RUPERT GUILLEN Address: home [address] [place] [address]
--- OUTSIDE RECORDS SUMMARY | 2023-03-04 05:39 | XMS_ITS | Continuity of Care Document ---
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 Role Phone Mando Zayas MD Primary Care Physician Encounter [facility] Date(s): 01/06/23 - 02/05/[address] [address]- Allergies, Adverse Reactions, Alerts No Known Allergies Immunizations Given and Recorded Vaccine Date Status Refusal Reason influenza virus vaccine, inactivated 02/01/23 Give n influenza virus vaccine, inactivated 03/31/22 Give n [...] tablet 1 tablet, By Mouth, Daily, # 90 tablet, 1 Refills, Maintenance, 02/01/23 10:58:00 EDT, [facility]/pharmacy#[id number], 175, cm, 02/01/23 10:28:00 EDT, Height, 85.5, kg, 08/26/22 10:18:00 EDT, Dry Weight Start Date: 02/01/23 Stop Date: 07/31/23 Status: Ordered Carafate 1 gm oral tablet 1 Gm, 1, tablet, By Mouth, 4 times a day, # 120 tablet, Refills 2, Tot. Refills 2, Maintenance, 12/29/22 7:48:00 EDT, Route to Pharmacy Electronically, [facility]/pharmacy #[id number], Partial fill upon patient request if the prescription is for a schedule II opio... Start Date: 12/29/22 Status: Ordered cetirizine 5 mg oral tablet = 5 mg, By Mouth, Daily, # 30 tablet, 2 Refills, Maintenance, 08/21/21 17:43:00 EDT, Tablet, [facility]/pharmacy #[id number], 175.26, cm, 08/21/21 13:24:00 [...] Compound Start Date: 01/10/15 Status: Ordered cyclobenzaprine 5 mg oral tablet 1 tablet = 5 mg, By Mouth, 3 times a day, for 7 days, # 21 tablet, 0 Refills, Acute 02/08/23 10:59:00 EDT, 02/01/23 10:59:00 EDT, Tablet, [facility]/pharmacy #[id number], Partial fill upon patient request if the prescription is for a schedule II opioid drug., 175,... Start Date: 02/01/23 Stop Date: 02/08/23 Status: Ordered diclofenac 1% topical gel 1 [...] 2 Refills, Maintenance, 06/07/20 10:01:00 EST, Tablet, [facility]/pharmacy #[id number], Partial fill upon patient request if the prescription is for a schedule II opioid drug., 175.26, cm, 03/15/20 13:14:00... Start Date: 06/07/20 Stop Date: 09/05/20 Status: Ordered Flonase 50 mcg/inh nasal spray 1 sprays, Nares, Both, 2 times a day, # 1 each, 2 Refills, Maintenance, 08/21/21 17:43:00 EDT, [place], [facility]/pharmacy #[id number], 1 sprays Nares, Both [...] 01/02/23 9:14:00 EDT, Route to Pharmacy Electronically, [facility]/pharmacy #[id number], 175, cm, 01/02/23 9:07:00 EDT, Height, [...] 2 Refills, Maintenance, 08/23/21 11:46:00 EDT, Ointment, [facility]/pharmacy #[id number], Partial fill upon patient request if the prescription is for a schedule II opioid d... Start Date: 08/23/21 Status: Ordered MetFORMIN (Eqv-Glucophage XR) 500 mg oral tablet, extended release See Instructions, TAKE 2 TABLETS BY MOUTH EVERY DAY WITH EVENING MEAL, # 180 tablet, 3 Refills, 06/05/22 10:48:00 EST, [facility]/pharmacy #[id number], 174, cm, 06/05/22 10:11:00 EST, [...] 1 Refills, Maintenance, 08/13/20 19:02:00 EDT, Tablet, [facility]/pharmacy #[id number], Partial fill upo... Start Date: 08/13/20 Status: Ordered naratriptan 2.5 mg oral tablet See Instructions, 1 TABLET BY MOUTH DAILY,PRN:FOR MIGRAINE HEADACHE,INSTR:MAY REPEAT DOSE ONCE IN 4HOURS, USE FOR SEVERE HEADACHES AT EARLIEST SYMPTOM ONSET, # 9 tablet, 1 Refills, Acute, [facility] STORE 16917, 175.26, cm, 11/14/20 9:30:00 EDT, Height Start Date: 11/14/20 Status: Ordered omeprazole 20 mg oral enteric coated capsule 1 capsule = 20 mg, By Mouth, 2 times a day, # 180 capsule, 3 Refills, Maintenance, 03/31/22 13:49:00 EST, EC Capsule, [facility]/pharmacy #[id number], Partial fill upon patient [...] f... Start Date: 07/28/22 Status: Ordered Pen [place], 29 G x 12.7 mm BD Ultra [...] SITES, # 2 Unknown, 5 Refills, Maintenance, 02/01/23 10:59:00 EDT, [id number], 175, cm, 02/01/23 10:28:00 EDT, Height, 85.5, kg, 08/26/22 10:18:00 EDT, Dry Weight Start Date: 02/01/23 Status: Ordered Tylenol Extra Strength 500 mg [...] 9:09:00 EDT, 01/02/23 9:09:00 EDT, Tablet, [id number], Partial fill upon patient request if the [...] Team Personnel Name: Thalia Rapp NP Position: [facility] Associate Professional Member Role: Primary Care Nurse Address: Address: [address] [place] [address] Trauma [place] [address]- Name: Mando Zayas MD Position: [facility] Physician - Primary Care Member Role: PCP Address: Address: [address] [place] [address]- Care Team Related Persons Name: JESSIE TURNER Address: home [address] [place] [address] Name: RUPERT GUILLEN Address: home [address] [place] [address]
--- OUTSIDE RECORDS SUMMARY | 2023-03-04 05:39 | XMS_ITS | Continuity of Care Document ---
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 Refills 0, Maintenance, use as directed for Type 2 Diabetes Mellitus, 06/13/14 16:30:21, Compound Start Date: 06/13/14 Stop Date: 07/13/14 Status: Ordered Pen [place], 31 G x 8 mm BD Ultra [...]
--- OUTSIDE RECORDS SUMMARY | 2023-03-04 05:39 | XMS_ITS | Continuity of Care Document ---
Author Name Unknown Organization [facility] Address [address] [place] [address]- Care Team Providers Care List Of First Job Ideas Name Role Phone Mando Zayas DO Primary Care Physician Encounter [facility] Date(s): 09/24/21 - 10/24/[address] [address]- Attending Physician: AdmKrishna mullins Admitting Physician: AdmtrKrishna [...] 6 Refills, Maintenance, 08/06/21 19:02:00 EDT, Tablet, [facility]/pharmacy #[id number], Partial fill upon patient request if the prescription is for a schedule II opioid drug., 175.26, cm, 08/06/21 13:52:00 EDT, Height Start Date: 08/06/21 Stop Date: 03/04/22 Status: Ordered cetirizine 5 mg oral tablet = 5 mg, By Mouth, Daily, # 30 tablet, 2 Refills, Maintenance, 08/21/21 17:43:00 EDT, Tablet, [facility]/pharmacy #[id number], 175.26, cm, 08/21/21 [...] 0 Refills, Maintenance, 10/15/20 17:12:00 EDT, Gel, [facility]/pharmacy #[id number], 175.26, cm, 10/14/20 14:50:00 EDT, Height Start Date: 10/15/20 Status: Ordered divalproex sodium 500 mg oral enteric coated tablet 1 tablet = 500 mg, By Mouth, 2 times a day, # 60 tablet, 2 Refills, Maintenance, 06/07/20 10:01:00 EST, Tablet, [facility]/pharmacy #[id number], Partial fill upon patient request if the prescription is for a schedule II opioid drug., 175.26, cm, 03/15/20 13:14:00... Start Date: 06/07/20 Stop Date: 09/05/20 Status: Ordered Flonase 50 mcg/inh nasal spray 1 sprays, Nares, Both, 2 times a day, # 1 each, 2 Refills, Maintenance, 08/21/21 17:43:00 EDT, [place], [facility]/pharmacy #[id number], 1 sprays Nares, [...] Refills, Maintenance, 08/23/21 11:46:00 EDT, Ointment, [id number], Partial fill upon patient request if the prescription is for a schedule II opioid d... Start Date: 08/23/21 Status: Ordered metFORMIN 1000 mg oral tablet, extended release 1 tablet = 1,000 mg, By Mouth, Daily, with evening meal, # 90 tablet, 3 Refills, Maintenance, 10/14/20 16:00:00 EDT, ER Tablet, [facility]/pharmacy #[id number], Partial fill upon [...] 1 Refills, Maintenance, 08/13/20 19:02:00 EDT, Tablet, [facility]/pharmacy #[id number], Partial fill upo... Start Date: 08/13/20 Status: Ordered naratriptan 2.5 mg oral tablet See Instructions, 1 TABLET BY MOUTH DAILY,PRN:FOR MIGRAINE HEADACHE,INSTR:MAY REPEAT DOSE ONCE IN 4HOURS, USE FOR SEVERE HEADACHES AT EARLIEST SYMPTOM ONSET, # 9 tablet, 1 Refills, Acute, [facility] STORE [id number], 175.26, cm, 11/14/20 9:30:00 EDT, Height Start Date: 11/14/20 Status: Ordered omeprazole 20 mg oral enteric coated capsule 1 capsule = 20 mg, By Mouth, Daily, # 90 capsule, 0 Refills, Maintenance, 08/21/21 17:43:00 EDT, ECCapsule, [facility]/pharmacy #[id number], Partial fill upon patient request if the prescription is for a schedule II opioid drug., 175.26, cm, 08/21/21 13:24:00 EDT... Start Date: 08/21/21 Status: Ordered Pen [place], 29 G x 12.7 mm BD Ultra [...] INJECTION SITES, # 2 Unknown, 1 Refills, [facility] STORE [id number], 175.26, cm, 08/21/21 13:24:00 EDT, Height Start Date: 09/08/21 Status: Ordered Tylenol Extra Strength 500 mg oral tablet 2 tablet = 1,000 mg, By Mouth, 3 times a day, PRN for pain, not to exceed 3000 mg/day, # 100 tablet, 1 Refills, Maintenance, 08/21/21 17:44:00 EDT, Tablet, [facility]/pharmacy #[id number], 175.26, cm, 08/21/21 13:24:00 EDT, Height [...]
--- OUTSIDE RECORDS SUMMARY | 2023-03-04 05:39 | XMS_ITS | Continuity of Care Document ---
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 Role Phone Mando Zayas DO Primary Care Physician Encounter [facility] Date(s): 05/23/20 - 06/22/20 [facility] [address] [place] [address]- Allergies, Adverse Reactions, Alerts Substance Reaction Severity [...] 0 Refills, Maintenance, 03/16/20 13:21:00 EST, Gel, [facility]/pharmacy #[id number], 175.26, cm, 03/15/20 13:14:00 EST, Height Start Date: 03/16/20 Status: Ordered divalproex sodium 500 mg oral enteric coated tablet 1 tablet = 500 mg, By Mouth, 2 times a day, # 60 tablet, 2 Refills, Maintenance, 06/07/20 10:01:00 EST, Tablet, [facility]/pharmacy #[id number], Partial fill upon patient request if the prescription is for a schedule II opioid drug., 175.26, cm, 03/15/20 13:14:00... Start Date: 06/07/20 Stop Date: 09/05/20 Status: Ordered Flonase 50 mcg/inh nasal spray 1 sprays, Nares, Both, 2 times a day, # 1 each, 2 Refills, Maintenance, 03/15/20 17:00:00 EST, [place], [id number], 1 sprays Nares, Both 2 [...] 0 Refills, Maintenance, 03/16/20 13:21:00 EST, Tablet, [facility]/pharmacy #[id number], 175.26, cm, 03/15/20 13:14:00 [...]
[2023-03-04 05:59] VITALS: BP 122/85; PULSE 89; RESP 16; TEMP 36.6; O2SAT 99
--- NOTE | 2023-03-04 05:59 | ED.GENADULT ---
HPI - General Adult General Chief complaint: General Medical Stated complaint: Pinched nerve in back headache Time Seen by Provider: 03/04/23 05:19 Source: patient and family () Mode of arrival: ambulatory History of Present Illness HPI narrative: This is a 58-year-old male who is typically evaluated through the [facility] system and states that he has chronic back and sciatic pain that he has has recently been evaluated for through the [facility] system, he is also followed up with his primary care doctor who has referred him to physical therapy but he is not feel that that helps him at all. Patient states that in the pain has continued and denies any recent traumatic event or any associated fever, chills and denies any bowel or bladder issues. Related Data Allergies Allergy/AdvReac Type Severity Reaction Status Date / Time No Known Allergies Allergy Verified 03/04/23 04:52 Review of Systems Review of Systems: Pertinent positives and negatives as stated in HPI [facility] Past Medical History Source: nursing notes reviewed Social History Social History Smoked in Last 30 Days: No Substance Use Type: Marijuana Advance Directives: No Advance Directives Information Provided: Yes Physical Exam ED Vital Signs: Vital Signs - 24 hr 03/04/23 04:53 03/04/23 04:58 03/04/23 05:59 Temperature 98.4 F 97.9 F Pulse Rate 92 92 89 Respiratory Rate 20 12 16 Blood Pressure 159/89 H 132/85 122/85 Pulse Oximetry 98 97 99 Oxygen Delivery Method Room Air Room Air Room Air BMI result Body Mass Index 28.3 VITAL SIGNS: Reviewed. GENERAL: Well developed, well nourished, in no acute distress. HEAD: Normocephalic/atraumatic EYES: PERRLA, EOMI EARS: Ext canals without abnormality NOSE: Nares patent bilateral OROPHARYNX: no oral lesions noted, posterior pharynx clear NECK: Supple, no adenopathy LUNGS: Normal breath sounds. No adventitious sounds or accessory muscle use. SpO2<97> CARDIOVASCULAR: Regular rate and rhythm without noted murmurs ABDOMEN: Soft, non-tender, non-distended with bowel sounds. BACK: No midline vertebral tenderness to palpation or step-offs. MUSCULOSKELETAL: No tenderness, deformities, or effusions noted on gross inspection. EXTREMITIES: No cyanosis, clubbing or edema. SKIN: Inspection of the skin reveals no rashes NEUROLOGIC: Alert and oriented x 4. Strength and sensation to light touch were grossly intact x 4. Medications Administered Discontinued Medications Generic Name Dose Route Start Last Admin Trade Name Jose Eduardo PRN Reason Stop Dose Admin Acetaminophen 975 mg 03/04/23 05:38 03/04/23 06:08 Acetaminophen 325 Mg Tablet PO 03/04/23 05:39 975 mg ONCE ONE Administration Ketorolac Tromethamine 15 mg 03/04/23 05:38 03/04/23 06:09 Ketorolac Tromethamine 15 Mg/Ml Vial IM 03/04/23 05:39 15 mg ONCE ONE Administration Lidocaine 1 patch 03/04/23 05:38 03/04/23 06:09 Lidocaine 4 % Patch Adh..Patch TRANSDERMA 03/04/23 05:39 1 patch ONCE ONE Administration Protocol Medical Decision Making Medical Decision Making [facility] Narrative: 58-year-old male with history and clinical presentation, DDX: Chronic back pain, chronic sciatic pain no symptoms her findings to suggest cauda equina or suspicion for spinal infection. Patient did receive combination analgesics as well as a lidocaine patch for his pain. I set expectations with the patient by reassuring him that the current interventions that are being implemented by his primary care provider are completely reasonable and additionally discussed with him the possibility of a pain management referral. Patient did have some complaints of left-sided chest discomfort approximately 3 hours prior to arrival that was not associated with any dizziness, shortness of breath or nausea. I reviewed all investigations and hematologic indices which do not have any comparison show a mild leukopenia with a predominant eosinophilia, no anemia or thrombocytopenia. Coagulation studies are within normal limits. Chemistry indices are grossly within normal limits without JAMAL and there are no electrolyte or liver enzyme abnormalities. High sensitivity troponin is undetectable and the EKG does not demonstrate STEMI. I reviewed patient's recent opioid prescriptions of which there are a number to include muscle relaxants. I feel that patient would significantly benefit from a referral to pain management. Serial troponins are undetectable and patient is otherwise discharged home with instructions follow-up with his primary care doctor. Differential Diagnosis Differential Diagnoses: The differential diagnosis associated with the presentation includes Please see the discussion above Admission/Observation Consideration of admission/observation: Escalation of care including admission/observation considered Please see the discussion above Lab Data [facility] Lab Attestation statement: I reviewed the patient's lab results. Please see the discussion above 03/04/23 05:05 03/04/23 05:05 Labs: Lab Results 03/04/23 03/04/23 Range/Units 05:05 06:30 WBC 4.0 L (4.8-10.8) X10*3/uL RBC 5.39 (4.60-5.80) X10*6/uL Hgb 15.2 (14.0-18.0) g/dl Hct 44.1 (42.0-52.0) % MCV 81.8 (80.0-98.0) fL MCH 28.2 (27.0-33.0) pg MCHC 34.5 (31.0-36.0) g/dl RDW 12.4 (11.0-16.0) % Plt Count 190 (160-400) X10*3/uL MPV 9.4 (9.4-12.4) fL Immature Gran % (Auto) 0.3 (0.0-0.4) % Neut % (Auto) 44.4 L (45-73) % Lymph % (Auto) 37.8 (20-40) % [place] % (Auto) 11.0 (2-11) % Eos % (Auto) 5.5 H (0-4) % Baso % (Auto) 1.0 (0-2) % Lymph # (Auto) 1.5 (1.2-4.9) X10*3/uL [place] # (Auto) 0.4 (0.1-1.2) X10*3/uL Eos # (Auto) 0.2 (0.0-0.4) X10*3/uL Baso # (Auto) 0.0 (0.0-0.2) X10*3/uL Abs Immat Gran (auto) 0.01 (0.00-0.03) X10*3/uL Absolute Neuts (auto) 1.8 L (2.0-8.3) x10*3/uL Absolute Nucleated RBC 0.000 (0.0-0.012) X10*3/uL Nucleated RBC % (auto) 0.0 (0.0-0.2) /100WBC PT 12.0 (11.1-13.3) SEC INR 1.0 (0.9-1.1) Sodium 139 (135-145) mmol/L Potassium 4.0 (3.3-5.1) mmol/L Chloride 105 (96-108) mmol/L Carbon Dioxide 22 (22-29) mmol/L Anion Gap 16 (12-20) BUN 10 (9-16) mg/dL Creatinine 0.84 (0.5-1.4) mg/dL Estim Creat Clear Calc 104.6 Estimated GFR > 60 Random Glucose 195 H (60-115) mg/dL Calcium 9.2 (8.4-10.2) mg/dL Total Bilirubin 0.4 (0.0-1.0) mg/dL AST 16 (5-37) U/L ALT 15 (0-40) U/L Alkaline Phosphatase 76 (39-117) U/L Troponin I High Sens < 2.7 < 2.7 (<3.5-35.0) ng/L Total Protein 6.6 (6.5-8.0) g/dL Albumin 3.9 (3.5-5.0) g/dL Independent Interpretation I performed an independent interpretation of an: EKG Interpretation: Normal sinus rhythm, HR-93, no STEMI, MD/QRS/QTC is within normal limits. Chronic Conditions Patient?s care impacted by: Diabetes Discharge Plan Discharge Clinical Impression: Atypical chest pain, Chronic back pain Patient Disposition: Home, Self-Care Instructions: Back Pain (ED), Noncardiac Chest Pain (ED) Additional Instructions: 1. Resume all home medications as prescribed. 2. Recommend follow-up with your primary care provider and discussion regarding referral to pain management. Return to the ER for any worsening symptoms.
[2023-03-04] MEDS: Acetaminophen 325 MG TABLET 975 MG PO (06:08)
[2023-03-04] MEDS: Lidocaine 4 % Patch ADH..PATCH 1 PATCH TRANSDERMA (06:09)
[2023-03-04] MEDS: Ketorolac Tromethamine 15 MG/ML VIAL IM (06:09)
[2023-03-04 06:55] LABS: Troponin-I High Sensitivity < 2.7 ng/L (<3.5-35.0)
[2023-03-04 07:11] VITALS: BP 123/72; PULSE 89; RESP 14; TEMP 36.7; O2SAT 97
== END 2023-03-04 07:41 | disposition home or self-care (01) ==
PROVIDERS: Emergency Provider Student in an Organized Health Care Education/Training Program
DX: R07.89 Other chest pain (principal); M54.50 Low back pain, unspecified; Z79.899 Other long term (current) drug therapy
CPT/HCPCS: 36415; 80053; 84484; 85025; 85610; 93005; 96372; 99284; 99285; J1885

== ENCOUNTER 2024-11-27 08:58 | Outpatient (AMB) | payer OTHER, SELFPAY ==
--- OUTSIDE RECORDS SUMMARY | 2024-11-23 23:59 | XMS_ITS | Continuity of Care Document ---
Author Organization [facility] Address [address] [place] [address], [address] [place] [address]- Care Team Providers Care Instrument Setter Name Role Phone Chana OLIVEIRA, Mando Primary Care Physician [phone] Encounter [facility] Date(s): 10/24/24 - 11/23/24 [facility] [address] [place] [address] Drive [address] [place], [place] [address] Encounter Type: Triage Allergies, Adverse Reactions, Alerts No Known Allergies Immunizations Given and Recorded Vaccine Date Status Refusal Reason tetanus/diphtheria/pertussis, acel(Tdap) 05/12/23 Given influenza virus vaccine, inactivated 02/01/23 Give n [...] sugars at least once a day, 10/14/20 4:57:00 PM EDT, Supply, 175.26, cm, 10/14/20 14:50:00 EDT, Height Start Date: 10/14/20 Stop Date: 04/12/21 Status: Ordered Quantity: 200.0 Unit: each Repeat number: 6 Indications: Type 2 diabetes mellitus without complications; Alcohol Wipes See Instructions, # 2 pack/packet, Refills 11, Tot. Refills 11, Maintenance, Please use to clean your finger before you take your blood glucose., 08/04/21 12:51:00 PM EDT, Supply, 175.26, cm, 08/04/2210:45:00 EDT, Height Start Date: 08/04/21 Status: Ordered Quantity: 2.0 Unit: pack/packet Repeat number: 12 Blood Pressure Cuff and Machine Blood Pressure Cuff and Machine, See Instructions, # 1 each, Refills 0, Tot. Refills 0, Maintenance, I10 Use daily for BP measurements, 07/25/24 11:29:00 AM EDT, Supply Start Date: 07/25/24 Status: Ordered Quantity: 1.0 Unit: each Repeat number: 1 Indications: Essential (primary) hypertension; cyclobenzaprine 10 mg oral tablet 10 mg, 1, tablet, By Mouth, 3 times a day, PRN, # 42 tablet, Refills 0, Tot. Refills 0, Maintenance, Spasm for spasm, 06/19/24 11:25:00 AM EST, Route to Pharmacy Electronically, [facility]/pharmacy #[id number], Partial fill upon patient request if the prescription is for a schedule II opioid drug., 175, cm, 06/19/24 11:09:00 EST, Height, 85, kg, 02/24/23 20:57:00 EDT, Dry Weight Start Date: 06/19/24 Stop Date: 06/26/24 Status: Ordered Quantity: 42.0 Unit: tablet Repeat number: 1 Freestyle Control Solution See Instructions, # 2 each, Refills 2, Tot. Refills 2, Maintenance, Please use with your glucometer., 08/04/21 12:54:00 PM EDT, Supply, 175.26, cm, 08/04/21 11:45:00 EDT, Height Start Date: 08/04/21 Status: Ordered Quantity: 2.0 Unit: each Repeat number: 3 Freestyle Lite Lancets See Instructions, # 100 each, Refills 11, Tot. Refills 11, Maintenance, use to check sugar daily oras needed, 10/23/24 11:20:00 AM EDT, Supply, 175, cm, 10/23/24 10:59:00 EDT, Height, 85, kg, 02/24/23 20:57:00 EDT, Dry Weight Start Date: 10/23/24 Status: Ordered Quantity: 100.0 Unit: each Repeat number: 12 Freestyle Lite Monitor See Instructions, # 1 each, Refills 0, Tot. Refills 0, Maintenance, please use to check your blood glucose levels., 08/04/21 12:53:00 PM EDT, Supply, 175.26, cm, 08/04/21 11:45:00 EDT, Height Start Date: 08/04/21 Status: Ordered Quantity: 1.0 Unit: each Repeat number: 1 Freestyle Lite Monitor See Instructions, # 1 each, Refills 0, Tot. Refills 0, Maintenance, use as directed for Type 2 Diabetes Mellitus, 03/15/20 5:39:00 PM EST, Supply, 175.26, cm, 03/15/20 13:14:00 EST, Height Start Date: 03/15/20 Stop Date: 04/14/20 Status: Ordered Quantity: 1.0 Unit: each Repeat number: 1 Indications: Type 2 diabetes mellitus without complications; Freestyle Lite Test Strips See Instructions, # 100 each, Refills 11, Tot. Refills 11, Maintenance, use as directed for Type 2 Diabetes Mellitus, 10/23/24 11:20:00 AM EDT, Supply, 175, cm, 10/23/24 10:59:00 EDT, Height, 85, kg, 02/24/23 20:57:00 EDT, Dry Weight Start Date: 10/23/24 Stop Date: 10/18/25 Status: Ordered Quantity: 100.0 Unit: each Repeat number: 12 gabapentin 800 mg oral tablet 1 tablet = 800 mg, By Mouth, 3 times a day, # 270 tablet, 3 Refills, Maintenance, 10/23/24 11:10:00 AM EDT, Tablet, [facility]/pharmacy #[id number], Partial fill upon patient request if the prescription is for a schedule II opioid drug., 175, cm, 10/23/24 10:59:00 EDT, Height, 85, kg, 02/24/23 20:57:00 EDT, Dry Weight Start Date: 10/23/24 Status: Ordered Quantity: 270.0 Unit: tablet Repeat number: 4 heating pad heating pad, See Instructions, # 1 each, Refills 0, Tot. Refills 0, Maintenance, used daily for lumbar back pain, 03/07/23 10:07:00 AM EDT, Supply Start Date: 03/07/23 Status: Ordered Quantity: 1.0 Unit: each Repeat number: 1 Indications: Lumbago with sciatica, right side; mirtazapine 15 mg oral tablet 1 tablet = 15 mg, By Mouth, Daily at bedtime, # 90 tablet, 10 Refills, Maintenance, 10/23/24 11:17:00 AM EDT, Tablet, [facility]/pharmacy #[id number], Partial fill upon patient request if the prescription is for aschedule II opioid drug., 175, cm, 10/23/24 10:59:00 EDT, Height, 85, kg, 02/24/23 20:57:00 EDT, Dry Weight Start Date: 10/23/24 Status: Ordered Quantity: 90.0 Unit: tablet Repeat number: 11 naproxen 500 mg oral tablet 1 tablet = 500 mg, By Mouth, 2 times a day, PRN for pain, # 60 tablet, 0 Refills, Maintenance, 06/19/24 11:40:00 AM EST, Tablet, [id number], Partial fill upon patient request if the prescription is for a schedule II opioid drug., 175, cm, 06/19/24 11:39:00 EST, Height, 85, kg, 02/24/23 20:57:00 EDT, Dry Weight Start Date: 06/19/24 Status: Ordered Quantity: 60.0 Unit: tablet Repeat number: 1 omeprazole 10 mg oral enteric coated capsule 1 capsule = 10 mg, By Mouth, Daily, # 90 capsule, 3 Refills, Maintenance, 10/23/24 11:18:00 AM EDT, EC Capsule, [facility]/pharmacy #[id number], Partial fill upon patient request if the prescription is for a schedule II opioid drug., 175, cm, 10/23/24 10:59:00 EDT, Height, 85, kg, 02/24/23 20:57:00 EDT, Dry Weight Start Date: 10/23/24 Status: Ordered Quantity: 90.0 Unit: capsule Repeat number: 4 Pen [place], 29 G x 12.7 mm BD Ultra Fine See Instructions, # 300 each, Refills 5, Tot. Refills 5, Maintenance, use as directed for Type 2 Diabetes Mellitus. Use with your Trulicity pen., 08/04/21 1:11:00 PM EDT, Supply, 175.26, cm, 08/04/21 11:45:00 EDT, Height Start Date: 08/04/21 Stop Date: 01/26/23 Status: Ordered Quantity: 300.0 Unit: each Repeat number: 6 rosuvastatin 10 mg oral tablet 1 tablet, By Mouth, Daily, # 90 tablet, 3 Refills, Maintenance, 10/23/24 11:17:00 AM EDT, [id number], 175, cm, 10/23/24 10:59:00 EDT, Height, 85, kg, 02/24/23 20:57:00 EDT, Dry Weight Start Date: 10/23/24 Status: Ordered Quantity: 90.0 Unit: tablet Repeat number: 4 Trulicity Pen 3 mg/0.5 mL subcutaneous solution 0.5 mL = 3 mg, Subcutaneous Injection, Every week, rotate injection sites, # 2 mL, 11 Refills, Maintenance, 10/23/24 11:17:00 AM EDT, Solution, [id number], Partial fill upon patient request ifthe prescription is for a schedule II opioid drug., 175, cm, 10/23/24 10:59:00 EDT, Height, 85, kg,02/24/23 20:57:00 EDT, Dry Weight Start Date: 10/23/24 Status: Ordered Quantity: 2.0 Unit: mL Repeat number: 12 Problem List Condition Confirmation Course Effective Dates Status Health Status Informant Allergic rhinitis Confirmed Active Anxiety depression Confirmed Active Chronic bipolar disorder Confirmed Active Diabetes mellitus type 2 Confirmed Active Suspected sleep apnea Confirmed Active Gastro-esophageal reflux disease with esophagitis Confirmed Active Gastroesophageal reflux disease without esophagitis Confirmed 12/28/18 Active Headache disorder Confirmed Active Hepatitis C Confirmed 02/06/02 Active Hypercholesterolemia Confirmed Active Low back pain with right-sided sciatica Confirmed Active Obstructive sleep apnea syndrome Confirmed 2003 Active Opioid abuse 1 Confirmed Stable Active BMI 27.0-27.9,adult Confirmed Active Type 2 diabetes mellitus without complication Confirmed 12/28/18 Active 1on methadone clinic Social History Social History Type Response Smoking Status Never smoker; Tobacc o user in household: No entered on: 07/13/14 Sex Sex Representation Male (finding) Patient Care team information Care Team Personnel Name: Cipriano Lindsey RN Position: [facility] RN Member Role: Primary Care Nurse Name: Thalia Rapp NP Position: [facility] Associate Professional Member Role: Primary Care Nurse Address: [address] [place] [address] [place] [address] Telecom: Name: Mando Zayas MD Position: [facility] Physician - Primary Care Member Role: PCP Address: [address] [place] [address] Telecom: Care Team Related Persons Name: JESSIE TURNER Name: RUPERT GUILLEN Insurance Providers Guarantor name: FELISHA TURNER Health Plan Information #: 1 Payer: [employer] Payer Identifier: QUITA Member Number: [id number] Group Number: [id number] Subscriber Identifier: [id number] Relationship to Subscriber: self Coverage Type: Medicaid (Managed Care) Coverage Verification Date: NA Telecom: NA Address: NA
--- OUTSIDE RECORDS SUMMARY | 2024-11-25 23:59 | XMS_ITS | Continuity of Care Document ---
Author Organization [facility] Address [address] [place] [address]- Care Team Providers Care Etiologist Name Role Phone Chana OLIVEIRA, Mando Primary Care Physician Encounter [facility] [id number] Date(s): 10/26/24 - 11/25/[address] [address]- Attending Physician: Krishna Chaney Admitting Physician: AdmtrKrishna Referring Physician: Admtr Ar8 Encounter Type: Triage Allergies, Adverse Reactions, Alerts [...] 11:25:00 AM EST, Route to Pharmacy Electronically, [facility]/pharmacy #[id number], Partial fill upon patient request if the [...] Refills, Maintenance, 10/23/24 11:10:00 AM EDT, Tablet, [facility]/pharmacy #[id number], Partial fill upon patient [...] Refills, Maintenance, 10/23/24 11:17:00 AM EDT, Tablet, [facility]/pharmacy #[id number], Partial fill upon patient [...] Refills, Maintenance, 06/19/24 11:40:00 AM EST, Tablet, [facility]/pharmacy #[id number], Partial fill upon patient [...] Maintenance, 10/23/24 11:18:00 AM EDT, EC Capsule, [facility]/pharmacy #[id number], Partial fill upon patient request if the prescription is for a schedule II opioid drug., 175, cm, 10/23/24 10:59:00 EDT, Height, 85, kg, 02/24/23 20:57:00 EDT, Dry Weight Start Date: 10/23/24 Status: Ordered Quantity: 90.0 Unit: capsule Repeat number: 4 Pen [place], 29 G x 12.7 mm BD Ultra [...] 3 Refills, Maintenance, 10/23/24 11:17:00 AM EDT, [facility]/pharmacy #[id number], 175, cm, 10/23/24 10:59:00 EDT, Height, [...] Team Personnel Name: Cipriano Lindsey RN Position: [facility] RN Member Role: Primary Care Nurse Name: Thalia Rapp NP Position: [facility] Associate Professional Member Role: Primary Care Nurse Address: [address] [place] [address] [address] Telecom: Name: Mando Zayas MD Position: [facility] Physician - Primary Care Member Role: PCP Address: [address] [place] [address] Telecom: Care Team Related Persons Name: JESSIE TURNER Name: RUPERT GIULLEN Insurance Providers Guarantor name: FELISHA TURNER [employer] Plan Information #: 1 Payer: [employer] Payer Identifier: QUITA Member Number: [id number] Group Number: [id number] Subscriber Identifier: [id number] Relationship to Subscriber: self Coverage Type: Medicaid (Managed Care) Coverage Verification Date: NA Telecom: NA Address:
--- OUTSIDE RECORDS SUMMARY | 2024-11-27 09:11 | XMS_ITS | Clinical Summary ---
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 Name Role Phone Physician, No Pcp Primary Care Provider Unavaila ble Allergies No known active allergies Medications methylPREDNISo lone (MEDROL DOSPAK) 4 mg tablet Follow schedule on package instructions 21 tablet 5 Active Additional Information Patient not taking.Reported on 09/06/2024 blood sugar diagnostic (FreeStyle Lite Strips) test strip USE DIRECTED FOR TYPE 2 DIABETES MELLITUS, TAKE YOUR SUGARS AT LEAST ONCE A DAY 5 Active cyclobenzaprin e (FLEXERIL) 10 mg tablet TAKE 1 TABLET BY MOUTH 3 TIMES A DAY FOR 7 DAYS NEEDED SPASMS 5 Active Trulicity 3 mg/0.5 mL pen injector injection INJECT 1 PEN SUBCUTANEOUSLY ONCE WEEKLY, ROTATE INJECTION SITES Active gabapentin (NEURONTIN) 600 mg tablet Take 1 tablet (600 mg total) by mouth. 5 Active rosuvastatin (CRESTOR) 10 mg tablet Take 1 tablet (10 mg total) by mouth 1 (one) time each day. Active omeprazole (PriLOSEC) [address] capsule Take 1 capsule (20 mg total) by mouth 1 (one) time each day. Active naproxen (NAPROSYN) 500 mg tablet Take 1 tablet (500 mg total) by mouth 2 (two) times a day if needed. for pain 5 Active mirtazapine (REMERON) 15 mg tablet Take 1 tablet (15 mg total) by mouth. 5 Active metFORMIN XR (GLUCOPHAGE-XR ) 500 mg 24 hr tablet Take 2 tablets (1,000 mg total) by mouth 1 (one) time each day with dinner. 4 Active fluticasone propionate (FLONASE) 50 mcg/actuation nasal spray Administer 1 spray into each nostril 1 (one) time each day. Shake gently. Before first use, prime pump. After use, clean tip and replace cap. Active Active Problems Problem Noted Date Diagnosed Date Lumbar polyradiculopathy 11/02/2024 Low back pain with sciatica 09/06/2024 Assessment & Plan (09/06/2024 10:16 AM EDT): Mr. Avalos describes waxing and waning low back pain over the years but this episode has been more lasting and troublesome. He describes pain down the right leg in an L5 distribution with weakness in right ankle dorsiflexion that he says has been going on for 6 weeks. On exam he has 5 out of 5 strength in all major muscle groups with the exception of right sided dorsiflexion which was weak at 2-3 out of 5. He could weakly invert the right foot at approximately 3 - 4- out of 5. An MRI of the lumbar spine from [facility] dated August 24, 2024 reveals multilevel degenerative disc disease with type II Modic changes at L5-S1, L1-2 and L2-3. There was no clear- cut compression of the right L5 nerve root though there was some disc bulging at L5- S1 seen best on the sagittal view. I reviewed the films with Dr. Gusman who agreed that an EMG would be the best next step. The patient agreed and will I order it. Type 2 diabetes mellitus wit hout complication, without long-term current use of insulin ([facility] V24, [facility] V28) 12/28/2018 Gastroesophageal reflux disease without esophagi tis 12/28/2018 Encounters Date Type Department Care Team Description 11/03/2024 Telephone [facility] [address] [place] [address] Vangie Howard MA Appointment (Faxed order for Pt to [facility], Dr Crockett on 6/27/25. Asked to please send us appointment information when scheduled. ) 11/02/2024 Telephone [facility] [address] [address] Nas Ashley PA 09/11/[address] [address] Vangie Howard MA Appointment (Pt is scheduled with [facility] on 09/19/24 at 2:30pm with Dr Crockett. Called Pt to provide the appointment time, date, address and phone. Pt recorded and thanked office for information. ) 09/06/2024 9:30 AM EDT Consult [address] [address] Nas Ashley PA Chronic right-sided low back pain with right-sided sciatica (Primary Dx) from Last 3 Months Immunizations Name Administration Dates Next Due Hepatitis A Adult (Havrix; V aqta) 19yo and older 08/03/2015 Hepatitis B (Lbctqgx-F-Mluoe , Recombivax HB-Adult) 19yo and older 09/03/2015,08/03/2015 Influenza Quadravalent, MDCK , 0.5ml, preservative free (Flucelvax) 6mo and older 02/12/2020 Influenza trivalent, with pr eservative (Fluzone; Afluria) 6mo and older 02/01/2023,03/31/2022,08/21/2021,03/08,03/23/2016,02/25/2015,03/23/2014 ,03/15/2012,03/15/2006 MMR, measles mumps and rubel la Live (Priorix; M-M-R II) 12mo and older 08/03/2015 Pneumococcal conjugate 20 va lent (Prevnar 20, PCV 20) 2mo and older 03/31/2022 Pneumococcal polysaccharide 23 valent (Pneumovax 23) 2yo and older 08/03/2015,03/15/2012 Td, Unspecified 12/28/2012 Tdap Tetanus diptheria acell ular pertussis (Boostrix; Adacel) 7yo and older 05/12/2023 Zoster recombinant (Shingrix ) 19yo and older 01/15/2021,11/07/2020 Medical History Medical History Date Comments Diabetes ([facility] V24, [facility] V28) GERD (gastroesophageal reflux disease) Anxiety and depression Low back pain SOURAV (obstructive sleep apnea) Social History Tobacco Use Types Packs/Day Years Used Date Smoking Tobacco: Never Smokeless Tobacco: Never Sex and Gender Information Value Date Recorded Sex Assigned at Male 08/24/2024 5:47 PM EDT Legal Sex Male 3:14 PM EST Gender Identity Male 08/24/2024 5:47 PM EDT Sexual Orientation Straight 08/24/2024 5: 47 PM EDT Obstetrics History Last Filed Vital Signs Vital Sign Reading Time Taken Comments Blood Pressure 139/91 08/24/2024 11:39 PM EDT Pulse 95 08/24/2024 11:39 PM EDT Temperature 36.9 C (98.4 F) 08/24/2024 11:39 PM EDT Respiratory Rate 20 08/24/2024 11:39 PM EDT Oxygen Saturation 99% 08/24/2024 11:39 PM EDT Inhaled Oxygen Concentration - - Weight 81.2 kg (179 lb) 09/06/2024 9:24 AM EDT Height 175.3 cm (5' 9 ) 09/06/2024 9:24 AM EDT Body Mass Index 26.43 09/06/2024 9:24 AM EDT Plan of Treatment Health Maintenance Due Date Last Done Comments Diabetes: Annual Foot Exam 1975 Diabetes: Annual Retina Eye Exam 1975 Hepatitis B Vaccines (3 of 3 - 19+ 3-dose series) 02/03/2016 09/03/2015, 08/03/2015 Cholesterol Screening (Lipid Panel) 06/08/2023 Colorectal Cancer Screening: Colonoscopy 06/08/2023 HIV Screening 06/08/2023 Hepatitis C Screening 06/08/2023 Social Influencers of Health Screening 06/08/2023 COVID-19 Vaccine ( season) 2024 09/11/2021, 10/10/2020, 09/19/2020 Depression Screening 05/10/2024 Diabetes: Annual Urine Albumin-Creatinine Ratio (uACR) 08/25/2024 Diabetes: Blood Sugar Control Test (HGBA1C) 08/25/2024 Influenza Vaccine (#1) 2025 , 03/31/2022, 08/21/2021, Additional history exists Diabetes: Annual GFR (Glomerular Filtration Rate) 08/24/2025 08/24/2024 DTaP,Tdap,and Td Vaccines (3 - Td or Tdap) 05/12/2033 05/12/2023, 12/28/2012 RSV Immunization Adult Patients (1 - 1-dose 75+ series) 01/02/2040 Hepatitis A Vaccines Aged Out 08/03/2015 No long er eligible based on patient's age to complete this topic MMR Vaccines Aged Out 08/03/2015 No longer eligi ble based on patient's age to complete this topic Zoster Vaccines Completed 01/15/2021, 11/07/2020 Pneumococcal Vaccine: 50+ Years Completed 03/31/2022, 08/03/2015, 03/15/2012 HIB Vaccines Aged Out No longer eligi ble based on patient's age to complete this topic HPV Vaccines Aged Out No longer eligi ble based on patient's age to complete this topic IPV Vaccines Aged Out No longer eligi ble based on patient's age to complete this topic Meningococcal ACWY Vaccine Aged Out N o longer eligible based on patient's age to complete this topic Meningococcal B Vaccine Aged Out No l onger eligible based on patient's age to complete this topic RSV Immunization Patients Under 20 months Aged Out No longer eligible based on patient's age to complete this topic Varicella Vaccines Aged Out No longer eligible based on patient's age to complete this topic Procedures Procedure Name Priority Date/Time Associated Diagnosis Comments COMPREHENSIVE METABOLIC PANEL STAT 08/24/2024 8:41 PM EDT from Last 3 Months or Most Recently Relevant to Health Maintenance Results * (ABNORMAL) Comprehensive Metabolic Panel (CMP) (08/24/2024 8:41 PM EDT) Sodium 141 135 - 145 mmol/L LAB CHEMISTRY METHOD 08/24/2024 9:18 PM EDT [facility] Potassium 4.0 3.5 - 5.1 mmol/L LAB CHEMISTRY METHOD 08/24/2024 9:18 PM EDT [facility] Chloride 107 98 - 107 mmol/L LAB CHEMISTRY METHOD 08/24/2024 9:18 PM EDT [facility] CO2 27 24 - 32 mmol/L LAB CHEMISTRY METHOD [facility] Anion Gap 7 5 - 14 LAB CHEMISTRY METHOD 08/24/2024 9:18 PM EDT [facility] Glucose 141 70 - 199 mg/dL LAB CHEMISTRY METHOD 08/24/2024 9:18 PM EDT [facility] BUN 8(L) 9 - 20 mg/dL LAB CHEMISTRY METHOD [facility]/24[facility]2024 [facility] Creatinine 0.90 0.70 - 1.30 mg/dL LAB CHEMISTRY METHOD 08/24[facility]2024 9[facility] eGFR 98 >=60 mL/min/1. 73m2 LAB CHEMISTRY METHOD 08/24/2024 9:18 PM EDT [facility] Comment:Calculation based on the Chronic Kidney Disease Epidemiology Collaboration (CKD-EPI) equation refit without adjustment for race. BUN/Creatinine Ratio 8.9(L) 12.0 - 20.0 LAB CHEMISTRY METHOD 08/24/2024 9:18 PM [facility] Calcium 9.0 8.4 - 10.2 mg/dL LAB CHEMISTRY METHOD 08/24/2024 9:18 PM [facility] AST (SGOT) 17 5 - 40 unit/L LAB CHEMISTRY METHOD 08/24/2024 9:18 PM [facility] ALT (SGPT) 16 7 - 52 unit/L LAB CHEMISTRY METHOD 08/24/2024 9:18 PM EDT [facility] Alkaline Phosphatase 82 34 - 104 unit/L LAB CHEMISTRY METHOD 08/24/2024 9:18 PM EDT [facility] Total Protein 6.6 6.4 - 8.5 g/dL LAB CHEMISTRY METHOD 08/24/2024 9:18 PM EDT [facility] Albumin 4.0 3.5 - 5.0 g/dL LAB CHEMISTRY METHOD 08/24/2024 9:18 PM EDT [facility] Total Bilirubin 0.4 0.3 - 1.0 mg/dL LAB CHEMISTRY METHOD 08/24/2024 9:18 PM EDT [facility] Blood Venous blood specimen / Unknown Venipuncture / Unknown 08/24/2024 8:41 PM EDT 08/24/2024 8:47 PM EDT us Suze Dooley MD LAB BLOOD ORDERABLES Final Resul t [facility] [address] [place] [address], [place] [phone] from Last 3 Months or Most Recently Relevant to Health Maintenance Insurance [facility] MEDICA[employer] Care Teams 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
--- OUTSIDE RECORDS SUMMARY | 2024-11-27 09:11 | XMS_ITS | Clinical Summary ---
Author Organization [facility] Address [address] [place] [address] Care Team Providers Care Process Architect Name Role Phone Tima Logan NP Primary Care Provider [phone] Source Comments PLEASE NOTE, if this patient is a minor, it may be UNLAWFUL to discuss sensitive information that is contained in these records (such as FAMILY PLANNING, MENTAL HEALTH or SUBSTANCE ABUSE) with the minor patient's parent or other person without the patient's specific authorization.[facility] Medications lamoTRIgine (LAMICTAL) 150 mg tablet Take 1 Tab by mouth once daily 30 Tab 2 9 Active cloNIDine HCl (CATAPRES) 0.1 mg tablet Take 1 Tab by mouth 3 (three) times daily 90 Tab 2 9 Active FLUoxetine (PROZAC) 20 mg tablet Take 2 Tabs by mouth every morning 60 Tab 2 9 Active loratadine (CLARITIN) 10 mg tablet Take 1 Tab by mouth once daily as needed for allergies 30 Tab 2 9 Active metFORMIN (GLUCOPHAGE) 1,000 mg tablet Take 1 Tab by mouth 2 (two) times daily with a meal 60 Tab 2 9 Active omeprazole (PRILOSEC) [address] capsule Take 1 Cap by mouth every morning before breakfast 30 Cap 1 9 Active Active Problems Problem Noted Date Diagnosed Date Recurrent major depressive d isorder, in full remission (CMS-HCC V24) 12/28/2018 Social anxiety disorder 12/28/2018 Overview (12/28/2018): Per records from [facility] SOURAV (obstructive sleep apnea) 12/28/2018 Gastroesophageal reflux disease without esophagi tis 12/28/2018 Type 2 diabetes mellitus wit hout complication, without long-term current use of insulin ([facility]) 12/28/2018 Social History Tobacco Use Types Packs/Day Years Used Date Smoking Tobacco: Never Assessed Social Connections Answer Date Recorded Social Connections and Isolation 0 12/28/2018 Financial Resource Strain Answer Date R ecorded Financial Resource Strain 0 2018 Stress Answer Date Recorded Stress 0 12/28/2018 Physical Activity Answer Date Recorded Physical Activity 0 12/28/2018 Food Insecurity Answer Date Recorded Food 0 12/28/2018 Transportation Needs Answer Date Record ed Transportation 0 12/28/2018 Housing Stability Answer Date Recorded Housing 0 12/28/2018 Safety and Environment Answer Date Aly rded Safety 0 12/28/2018 Utilities Answer Date Recorded Utilities 0 12/28/2018 Employment Answer Date Recorded Employment 0 12/28/2018 Sex and Gender Information Value Date Recorded Sex Assigned at Not on file Legal Sex Male 7:15 AM PDT Gender Identity Not on file Sexual Orientation Not on file Plan of Treatment Not on file [facility] Care Teams Process Architect Relationship Specialty Start Date End Date Tima Logan NP [address] [place] [phone] PCP - General [employer] Gerontology 12/28/18
--- NOTE | 2024-11-27 09:32 | MHC.OFFVIS ---
Intake Visit Reasons: ENP-Lumbar polyradiculopathy Allergies No Known Allergies Allergy (Verified 03/04/23 04:52) HPI Comments Details: 59 years old right-handed man with type 2 diabetes and chronic right-sided low back pain radiating to his leg developed right foot weakness few months ago. He said that his right foot was not lifting up like the left 1. This was affecting his ability to walk. He had an EMG nerve conduction study in October of 2024 in this office that revealed moderate right peroneal axonal neuropathy and signs of chronic right L4 -S1 radiculopathy. His diabetes would reasonably well controlled with A1c of 6+. There was no history of accident or trauma. [facility] Social History Substance Use Type: Marijuana Review of Systems Const Details: Constitutional:? difficulty maintaining sleep an urge to move legs HEENT:?No headache, vision changes, hearing loss, nasal congestion, sore throat. Cardiovascular:?No chest pain, palpitations, orthopnea, PND, or leg swelling. Respiratory:?No cough, shortness of breath, wheezing, or hemoptysis. Gastrointestinal:?No nausea, vomiting, abdominal pain, diarrhea, or constipation. Genitourinary:?No dysuria, frequency, incontinence, or hematuria. Musculoskeletal:? stiffness and back pain Neurological:? Difficulty walking with a right foot Psychiatric:?No anxiety, depression, mood swings, sleep disturbance, or hallucinations. Endocrine:?No heat/cold intolerance, polydipsia, polyuria, or hair/skin changes. Hematologic/Lymphatic:?No easy bruising, bleeding, or lymphadenopathy. Integumentary (Skin):?No rash, lesions, itching, or color changes. Allergic/Immunologic:?No seasonal allergies, hives, or recurrent infections. Physical Exam Neuro Other: Mental Status: Alert and oriented to person, place, and time. Normal attention. Normal spontaneous speech, fluency, and comprehension. No obvious issues with mood and memory. Affect is appropriate. Cranial Nerves: CN II: Visual pimentel full to confrontation, visual acuity intact. CN III, IV, : Pupils equal, round, reactive to light and accommodation. Extraocular movements are normal. CN V: Facial sensation is normal. CN VII: Facial movements symmetrical. CN VIII: Hearing intact to bedside conversation is normal. CN IX, X: Palate elevates symmetrically. CN XI: Shoulder shrug and head turn symmetrical. CN XII: Tongue midline without atrophy or fasciculations. Motor: diffuse muscle atrophy in legs and feet. Deep tendon reflexes are absent. Plantars are flexor. He is unable to stand he will of right toe. Extrapyramidal: Full facial expressions and blinking. No rigidity. Movements are appropriate with no tremor or abnormality. Speech: Normal; no dysarthria or tremor. Assessment & Plan Assessment & Plan (1) Peroneal neuropathy: Comment: EMG/NCS at off in October 2024: Mod R peroneal axonal neuropathy, right lower lumbar radiculapathy Code(s): G57.30 - Lesion of lateral popliteal nerve, unspecified lower limb Category: Medical Qualifiers: Laterality: right Qualified Code(s): G57.31 - Lesion of lateral popliteal nerve, right lower limb (2) Lumbar radiculopathy: Code(s): M54.16 - Radiculopathy, lumbar region Category: Medical Plan Impression: 59 years old man with chronic diabetes and significant right peroneal neuropathy resulting in foot drop. He also has chronic sciatica type of pain syndrome on the right side an EMG nerve conduction study revealing signs of chronic radiculopathy. He said that he had an MRI of back done in [facility] but he did not have the CTA other report. Recommendations: He is advised to Fetch the CD from [facility] to review his back for proper perspective and make a plan for management of sciatic or back pain. As far as foot drop is concerned, it could be combination of peroneal neuropathy and radiculopathy. Physical therapy and occupational therapy consultation and ankle foot orthosis is recommended. Medications: New leg brace (CHEMO Ankle Brace) Ankle foot orthosis, AFO, for right foot drop 1 ea 0RF Right foot drop G57.31 - Lesion of lateral popliteal nerve, right lower limb Coding Level of Care Code Tele New Pt Level 4 (48310) Diagnoses Neuropathy of right peroneal nerve G57.31 Laterality: right Lumbar radiculopathy M54.16
== END 2024-11-27 09:54 | disposition home or self-care (01) ==
LOC: HO.HSM 08:59
PROVIDERS: Visit Provider Psychiatry & Neurology Neurology
DX: G57.31 Lesion of lateral popliteal nerve, right lower limb (principal); M54.16 Radiculopathy, lumbar region
CPT/HCPCS: 99214

== ENCOUNTER → 2024-11-27 08:58 | Outpatient (BNVA) | payer OTHER, SELFPAY | PROVIDERS: Visit Provider Psychiatry & Neurology Neurology | DX: G57.31 Lesion of lateral popliteal nerve, right lower limb (principal) | CPT/HCPCS: 99212 ==

== ENCOUNTER 2024-12-18 11:23 | Outpatient (AMB) | payer OTHER, SELFPAY ==
--- NOTE | 2024-12-18 11:48 | MHC.OFFVIS ---
Intake Visit Reasons: 3 weeks fu Allergies No Known Allergies Allergy (Verified 03/04/23 04:52) HPI Comments Details: 59 years old man with chronic diabetes and significant right peroneal neuropathy resulting in foot drop. He also has chronic sciatica type of pain syndrome on the right side an EMG nerve conduction study revealing signs of chronic radiculopathy. [facility] Social History Substance Use Type: Marijuana Review of Systems Const Details: Constitutional:?No fever, chills, fatigue, weight loss, or night sweats. HEENT:?No headache, vision changes, hearing loss, nasal congestion, sore throat. Neurological:?No dizziness, syncope, seizures, numbness, tingling, weakness, tremors, memory loss. Psychiatric:?No anxiety, depression, mood swings, sleep disturbance, or hallucinations. Endocrine:?No heat/cold intolerance, polydipsia, polyuria, or hair/skin changes. Hematologic/Lymphatic:?No easy bruising, bleeding, or lymphadenopathy. Integumentary (Skin):?No rash, lesions, itching, or color changes. ? Physical Exam Neuro Other: Mental Status: Alert and oriented to person, place, and time. Normal attention. Normal spontaneous speech, fluency, and comprehension. No obvious issues with mood and memory. Affect is appropriate. Cranial Nerves: CN II: Visual pimentel full to confrontation, visual acuity intact. CN III, IV, : Pupils equal, round, reactive to light and accommodation. Extraocular movements are normal. CN V: Facial sensation is normal. CN VII: Facial movements symmetrical. CN VIII: Hearing intact to bedside conversation is normal. CN IX, X: Palate elevates symmetrically. CN XI: Shoulder shrug and head turn symmetrical. CN XII: Tongue midline without atrophy or fasciculations. Extrapyramidal: Full facial expressions and blinking. No rigidity. Movements are appropriate with no tremor or abnormality. Speech: Normal; no dysarthria or tremor. Assessment & Plan Assessment & Plan (1) Lumbar radiculopathy: Comment: MRI LS spine at [facility] in Aug 2024: Multilevel DJD especially L5/S1, L2/3 and 3/4 Code(s): M54.16 - Radiculopathy, lumbar region Category: Medical (2) Peroneal neuropathy: Comment: EMG/NCS at off in October 2024: Mod R peroneal axonal neuropathy, right lower lumbar radiculapathy Code(s): G57.30 - Lesion of lateral popliteal nerve, unspecified lower limb Category: Medical Qualifiers: Laterality: right Qualified Code(s): G57.31 - Lesion of lateral popliteal nerve, right lower limb (3) Degenerative disc disease (DDD) of lumbar region with discogenic back pain and leg pain: Code(s): M51.362 - Other intervertebral disc degeneration, lumbar region with discogenic back pain and lower extremity pain Category: Medical Plan Impression: a: Chronic multilevel moderate to severe degenerative disease, more so at L5/S1, L2/3 and 3/4. b: Chronic right lumbosacral radiculapathy probably related to L5/1 c: Right peroneal neuropathy Rec: a. Conservative management b. Avoid heavy work c: Regular walking or swimming type exercise d: PRN NSAID type pain med e: PRN epidural injection for worsening of radicular pain Coding Level of Care Code Tele Est Pt Level 5 (65387) Diagnoses Lumbar radiculopathy M54.16 Neuropathy of right peroneal nerve G57.31 Laterality: right Degenerative disc disease (DDD) of lumbar region with discogenic back pain and leg pain M51.362
--- OUTSIDE RECORDS SUMMARY | 2024-12-18 12:02 | XMS_ITS ---
Author Name [facility] Organization Unknown Results Test Name/Text Value Interpretation Date Range Source Bld gp Ab Scn SerPl Ql Negative Normal 08/25/2024 [facility] ABO Group Bld O Normal 08/25/2024 [facility] Rh Bld Positive Normal 08/25/2024 [facility] N MCV RBC Auto 83.5 FL Normal 08/25/2024 78 - 100 [facility] Neutrophils # Bld Auto 1.9 K/mcL Normal 08/25/2024 1.8 - 7.8 [facility] RDW RBC Auto-Rto 13.3 % Normal 08/25/2024 12.1 - 17.7 [facility] Basophils/leuk NFr Bld Auto 1.0 % Normal 08/25/2024 0 - 2 [facility] Hgb Bld-mCnc 15.4 g/dL Normal 08/25/2024 13.5 - 18 [facility] Neutrophils/leuk NFr Bld Auto 43.8 % Below low normal 08/25/2024 44 - 74 [facility] Lymphocytes # Bld Auto 1.9 K/mcL Normal 08/25/2024 1 - 3.2 [facility] Eosinophil # Bld Auto 0.2 K/mcL Normal 08/25/2024 0 - 0.5 [facility] RBC # Bld Auto 5.55 M/mcL Normal 08/25/2024 4.7 - 6 [facility] MCH RBC Qn Auto 27.7 pcg Normal 08/25/2024 25 - 33 [facility] Lymphocytes/leuk NFr Bld Auto 42.2 % Normal 08/25/2024 20 - 48 [facility] Monocytes # Bld Auto 0.3 K/mcL Normal 08/25/2024 0 - 0.8 [facility] Basophils # Bld Auto 0.0 K/mcL Normal 08/25/2024 0 - 0.2 [facility] Monocytes/leuk NFr Bld Auto 7.8 % Normal 08/25/2024 2 - 12 [facility] Eosinophil/leuk NFr Bld Auto 5.2 % Normal 08/25/2024 0 - 6 [facility] WBC # Bld Auto 4.4 K/mcL Normal 08/25/2024 4 - 10.5 [facility] Platelet # Bld Auto 202.0 K/mcL Normal 08/25/2024 150 - 4 50 [facility] PMV Bld Auto 8.0 FL Normal 08/25/2024 7.4 - 11.4 [facility] MCHC RBC Auto-mCnc 33.2 g/dL Normal 08/25/2024 32 - 36 [facility] Hct VFr Bld Auto 46.3 % Normal 08/25/2024 40 - 54 [facility] CRP SerPl-mCnc <0.5 mg/dL Normal 08/25/2024 - [facility] Bilirub SerPl-mCnc 0.4 mg/dL Normal 08/25/2024 0.3 - 1 [facility] Glucose SerPl-mCnc 141.0 mg/dL Normal 08/25/2024 70 - 199 [facility] eGFRcr SerPlBld CKD-EPI 2020 98.0 mL/min/1.73m2 Normal 08/25/2024 - [facility] Prot SerPl-mCnc 6.6 g/dL Normal 08/25/2024 6.4 - 8.5 [facility] Creat SerPl-mCnc 0.9 mg/dL Normal 08/25/2024 0.7 - 1.3 CT [facility] Albumin SerPl-mCnc 4.0 g/dL Normal 08/25/2024 3.5 - 5 [facility] Potassium SerPl-sCnc 4.0 mmol/L Normal 08/25/2024 3.5 - 5.1 [facility] Sodium SerPl-sCnc 141.0 mmol/L Normal 08/25/2024 135 - 14 5 [facility] CO2 SerPl-sCnc 27.0 mmol/L Normal 08/25/2024 24 - 32 [facility] Calcium SerPl-mCnc 9.0 mg/dL Normal 08/25/2024 8.4 - 10.2 [facility] ALP SerPl-cCnc 82.0 unit/L Normal 08/25/2024 34 - 104 [facility] AST SerPl-cCnc 17.0 unit/L Normal 08/25/2024 5 - 40 [facility] BUN SerPl-mCnc 8.0 mg/dL Below low normal 08/25/2024 9 - 20 [facility] ALT SerPl-cCnc 16.0 unit/L Normal 08/25/2024 7 - 52 CT [facility] Anion Gap SerPl-sCnc 7.0 Normal 08/25/2024 5 - 14 [facility] Chloride SerPl-sCnc 107.0 mmol/L Normal 08/25/2024 98 - 1 07 [facility] BUN/Creat SerPl 8.9 Below low normal 08/25/2024 12 - 2 0 [facility] aPTT PPP 32.4 sec Normal 08/25/2024 25 - 37 [facility] N PT Bld 11.6 sec Normal 08/25/2024 10.5 - 13.3 [facility] INR PPP 1.0 Normal 08/25/2024 0.8 - 1.1 [facility] N History of Medication Use Medication Directions Dispensed Refills Start Date End Date Status acetaminophen (TYLENOL) tablet 650 mg 650 mg, oral, Once, On Wed08/24/24 at 2033, For 1 dose 5 08/26/19 completed dexAMETHasone (DECADRON) injection 6 mg 6 mg, intravenous, Once, On Wed08/25/24 at 0031, For 1 dose 5 08/26/19 completed diazePAM (VALIUM) injection 2.5 mg 2.5 mg, intravenous, Once, On Wed08/24/24 at 2224, For 1 dose 5 08/26/19 completed HYDROmorphone (PF) (DILAUDID) injection 1 mg 1 mg, intravenous, Once, On Wed08/24/24 at 2341, For 1 dose 5 08/26/19 completed ketorolac (TORADOL) injection 15 mg 15 mg, intravenous, Once, On Babita 08/24/24 at 2341, For 1 dose 5 08/26/19 completed lidocaine 4 % patch 1 patch 1 patch, Topical, Administer over 12 Hours, Once, On Babita 08/24/24 at 2345, For 1 dose, Apply to right lower back. 5 active methylPREDNISolone (MEDROL DOSPAK) 4 mg tablet Follow schedule on package instructions 5 active Problems Problem Status Onset Date Problem Type Date of Resoluti on Source Acute back pain with sciatica, right active EncounterDiagnosisAct [facility] Right foot drop active EncounterDiagnosisAct CT_[facility] Encounters Encounter Type Encounter Reason Primary Diagnosis Location Date Emergency Back Pain Lumbago with sciatica, right side [facility] 08/24/2024 Emergency Sciatica and back pain Foot drop, right foot [facility] 08/24/2024 Care Team Organization Name Specialty Phone Email Start Date End Da te [facility] PHYSICIAN Primary Care 08/27/2024 [facility] 08/25/2024 [facility] NO PHYSICIAN Primary Care 08/25/2024 [facility] NO PHYSICIAN Primary Care 08/25/2024 [facility] 08/24/2024
--- OUTSIDE RECORDS SUMMARY | 2024-12-18 12:02 | XMS_ITS | Clinical Summary ---
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 Name Role Phone Physician, No Pcp Primary [...] An MRI of the lumbar spine from [facility] dated August 24, 2024 reveals multilevel degenerative [...] complication, without long-term current use of insulin ([facility] V24, [facility] V28) 12/28/2018 Gastroesophageal reflux disease without esophagi tis 12/28/2018 Encounters Date Type Department Care Team Description 11/03/2024 Telephone [facility] [place] [address] [place] [address] Vangie Howard MA Appointment (Faxed order for Pt to [facility], Dr Crockett on 6/27/25. Asked to please send us appointment information when scheduled. ) 11/02/2024 Telephone [facility] [place] [address] [place] [address] Nas Ashley PA from Last 3 Months Immunizations Name Administration Dates Next Due Hepatitis A Adult (Havrix; V aqta) 19yo and older 08/03/2015 Hepatitis B (Luaozqs-Q-Ctwxm , Recombivax HB-Adult) 19yo and older 09/03/2015,08/03/2015 [...] Medical History Medical History Date Comments Diabetes ([facility] V24, [facility] V28) GERD (gastroesophageal reflux disease) [...] Influencers of Health Screening 06/08/2023 COVID-19 Vaccine () 01/09/2024 09/11/2021, 10/10/2020, 09/19/2020 Depression Screening 05/10/2024 Diabetes: [...] LAB CHEMISTRY METHOD 08/24/2024 9:18 PM EDT [facility] Potassium 4.0 3.5 - 5.1 mmol/L LAB CHEMISTRY METHOD 08/24/2024 9:18 PM EDT [facility] Chloride 107 98 - 107 mmol/L LAB CHEMISTRY METHOD 08/24/2024 9:18 PM EDT [facility] CO2 27 24 - 32 mmol/L LAB CHEMISTRY METHOD 08/24/2024 9:18 PM EDT [facility] Anion Gap 7 5 - 14 LAB CHEMISTRY METHOD 08/24/2024 9:18 PM EDT [facility] Glucose 141 70 - 199 mg/dL LAB CHEMISTRY METHOD 08/24/2024 9:18 PM EDT [facility] BUN 8(L) 9 - 20 mg/dL LAB CHEMISTRY METHOD 08/24/2024 9:18 PM EDT [facility] Creatinine 0.90 0.70 - 1.30 mg/dL LAB CHEMISTRY METHOD 08/24/2024 9:18 PM EDT [facility] eGFR 98 >=60 mL/min/1. 73m2 LAB CHEMISTRY METHOD 08/24/2024 9:18 PM EDT [facility] Comment:Calculation based on the Chronic Kidney Disease Epidemiology Collaboration (CKD-EPI) equation refit without adjustment for race. BUN/Creatinine Ratio 8.9(L) 12.0 - 20.0 LAB CHEMISTRY METHOD 08/24/2024 9:18 PM EDT [facility] Calcium 9.0 8.4 - 10.2 mg/dL LAB CHEMISTRY METHOD 08/24/2024 9:18 PM EDT [facility] AST (SGOT) 17 5 - 40 unit/L LAB CHEMISTRY METHOD 08/24/2024 9:18 PM EDT [facility] ALT (SGPT) 16 7 - 52 unit/L LAB CHEMISTRY METHOD 08/24/2024 9:18 PM EDT [facility] Alkaline Phosphatase 82 34 - 104 unit/L LAB CHEMISTRY METHOD 08/24/2024 9:18 PM EDT [facility] Total Protein 6.6 6.4 - 8.5 g/dL LAB CHEMISTRY METHOD 08/24/2024 9:18 PM EDT [facility] Albumin 4.0 3.5 - 5.0 g/dL LAB CHEMISTRY METHOD 08/24/2024 9:18 PM EDT [facility] Total Bilirubin 0.4 0.3 - 1.0 mg/dL LAB CHEMISTRY METHOD 08/24/2024 9:18 PM T [facility] Blood Venous blood specimen / Unknown Venipuncture / Unknown 08/24/2024 8:41 PM EDT 08/24/2024 8:47 PM EDT us Junwoo Soumya MD LAB BLOOD ORDERABLES Final Resul t [facility] [address] [place] [address], [place] [phone] from Last 3 Months or Most Recently Relevant to Health Maintenance Insurance [facility] MEDICAID ADVANTAGE [address] [place] [address] Care Teams Metal Engineering Process Worker Relationship Specialty Start Date End Date Physician, No Pcp PCP - General 08/24/24
--- OUTSIDE RECORDS SUMMARY | 2024-12-18 12:02 | XMS_ITS | Clinical Summary ---
Author Organization [facility] Address [address] [place] [address] Care Team Providers Care Glass Block Bender Name Role Phone Tima Logan NP Primary Care Provider Source Comments PLEASE NOTE, if this patient [...] complication, without long-term current use of insulin ([facility]) 12/28/2018 Social History Tobacco Use Types Packs/Day [...] of Treatment Not on file Insurance [facility] Care Teams Glass Block Bender Relationship Specialty Start Date End Date Tima Logan NP [address] [place] [phone] PCP - General [employer]CH[employer] Gerontology 12/28/18
== END 2024-12-18 12:02 | disposition home or self-care (01) ==
LOC: HO.HSM 11:24
PROVIDERS: PCP Pediatrics; Visit Provider Psychiatry & Neurology Neurology
DX: G57.31 Lesion of lateral popliteal nerve, right lower limb (principal); M51.362 Other intervertebral disc degeneration, lumbar region with discogenic back pain and lower extremity pain
CPT/HCPCS: 99213

== ENCOUNTER → 2024-12-18 11:23 | Outpatient (BNVA) | payer OTHER, SELFPAY | PROVIDERS: PCP Pediatrics; Visit Provider Psychiatry & Neurology Neurology | DX: G57.31 Lesion of lateral popliteal nerve, right lower limb (principal); M51.362 Other intervertebral disc degeneration, lumbar region with discogenic back pain and lower extremity pain; E11.9 Type 2 diabetes mellitus without complications | CPT/HCPCS: 99212 ==